=== PATIENT | male | born 1945 | race African-American/Black ===

== ENCOUNTER 2018-03-05 15:13 | Inpatient (IN) ==
[2018-03-05] MEDS ORDERED: Sod Chloride 0.9% Inj 1,000 ML IV.SIG ONE (15:34)
--- NOTE | 2018-03-05 15:43 | ED ---
HPI General Chief Complaint: Abdominal Pain Stated Complaint: Abd Pain History of Present Illness HPI narrative: This patient complains of abdominal pain. Location is left lower quadrant. Duration is 2 days. Severity is moderate. He has had some nausea and vomiting. He has decreased appetite. No constipation or diarrhea or fever. No alleviating factors. No exacerbating factors. Related Data Home Medications Medication Instructions Recorded Confirmed alfuzosin 10 mg PO DAILY 03/05/18 03/05/18 lisinopril 20 mg PO DAILY 03/05/18 03/05/18 potassium chloride 10 meq PO DAILY 03/05/18 03/05/18 Allergies Allergy/AdvReac Type Severity Reaction Status Date / Time No Known Allergies Allergy Verified 03/05/18 15:18 Review of Systems ROS: all other systems reviewed are negative [facility] Medical History Medical History Hypertension (Acute) History of prostate disorder (Acute) Surgical History Surgical History No history of previous surgery (Acute) Social History Social History Substance History: No History of Abuse Second Hand Smoke Exposure: No Smoking Status: Never smoker How Often Do You Have a Drink Containing Alcohol: Never Recent Travel in [facility] within the Last 8 Weeks: No Recent Out of Country Travel within the Last 8 Weeks: No Immunization History Tetanus Immunization: Unsure Hx Influenza Vaccine This Season: Yes Exam Narrative Exam Narrative: GENERAL: Thin elderly well-developed patient in no apparent distress. SKIN: Focused skin assessment reveals no rash and nodules. Skin is Warm and dry. HEAD: Atraumatic. Normocephalic. EYES: Pupils equal and round. No scleral icterus. No injection or drainage. ENT: No nasal bleeding or discharge. Mucous membranes pink and moist. NECK: Trachea midline. No JVD. CARDIOVASCULAR: Regular rate and rhythm. No murmur appreciated. RESPIRATORY: No accessory muscle use. Clear to auscultation. Breath sounds equal bilaterally. GASTROINTESTINAL: Abdomen soft, non-tender, nondistended. Hepatic and splenic margins not palpable. MUSCULOSKELETAL: No obvious deformities. No clubbing. No cyanosis. No edema. NEUROLOGICAL: Awake and alert. No obvious cranial nerve deficits. Motor grossly within normal limits. Normal speech. PSYCHIATRIC: Appropriate mood and affect; insight and judgment reasonable Course Initial Documented Vital Signs Temperature 98.2 F 03/05/18 15:18 Pulse Rate 113 H 03/05/18 15:18 Respiratory Rate 16 03/05/18 15:18 Blood Pressure 102/64 03/05/18 15:18 Pulse Oximetry 99 03/05/18 15:18 Last Documented Vital Signs Temperature 98.2 F 03/05/18 15:18 Pulse Rate 113 H 03/05/18 15:18 Respiratory Rate 16 03/05/18 15:18 Blood Pressure 102/64 03/05/18 15:18 Pulse Oximetry 99 03/05/18 15:18 Medical Decision Making MDM Narrative Medical decision making narrative: IV placed and labs sent. I gave him a liter of normal saline IV bolus given his tachycardia and low blood pressure. I gave him IV Zofran. Extensive workup is ordered including blood work and urinalysis and CT of abdomen and pelvis with IV contrast. His abdominal exam is benign. But given his age and abdominal pain with vomiting and abnormal vital signs extensive workup is indicated. Patient has normal CBC but BMP reveals renal failure with creatinine of 4.2. The patient and family at bedside both insist his kidney function is always normal and he has no history of renal problems. CT scan is negative for acute problem. His abdominal pain feels improved. Jeong catheter was placed and there is no urinary retention. [facility] on [facility] evening. He is never been here before. He will be in observation for new onset renal failure as recommended by the hospitalist Medical Screen Exam Complete: Yes Emergency Medical Condition: Yes Differential Diagnosis Differential Diagnosis: Diverticulitis, colitis, ileus Medical Records Medical records reviewed: Yes I reviewed the patient's medical records. Lab Data Lab results reviewed: Yes I reviewed the patient's lab results. Result diagrams: 03/05/18 15:40 03/05/18 15:40 Lab Results 03/05/18 03/05/18 03/05/18 Range/Units 15:40 15:40 15:40 CBC w Diff Auto diff final WBC 9.8 (4.0-11.0) th/mm3 RBC 3.94 L (4.50-5.90) mil/mm3 Hgb 14.6 (13.0-17.0) gm/dL Hct 43.2 (39.0-51.0) % MCV 109.8 H (80.0-100.0) fL MCH 37.2 H (27.0-34.0) pg MCHC 33.9 (32.0-36.0) % RDW 16.8 (11.6-17.2) % Plt Count 249 (150-450) th/mm3 MPV 7.8 (7.0-11.0) fL Neut % (Auto) 76.4 H (16.0-70.0) % Lymph % (Auto) 11.3 (9.0-44.0) % [place] % (Auto) 8.4 H (0.0-8.0) % Eos % (Auto) 0.1 (0.0-4.0) % Baso % (Auto) 3.8 H (0.0-2.0) % Neut # (Auto) 7.5 (1.8-7.7) th/mm3 Lymph # (Auto) 1.1 (1.0-4.8) th/mm3 [place] # (Auto) 0.8 (0.0-0.9) th/mm3 Eos # (Auto) 0.0 (0.0-0.4) th/mm3 Baso # (Auto) 0.4 H (0.0-0.2) th/mm3 WBC Differential . Differential Comment . PT 10.5 (9.8-11.6) sec INR 1.0 Ratio APTT 22.6 L (24.3-30.1) sec Sodium 142 (136-145) meq/L Potassium 4.3 (3.5-5.1) meq/L Chloride 106 (98-107) meq/L Carbon Dioxide 23.4 (21.0-32.0) meq/L Anion Gap 13 (5-15) meq/L BUN 22 H (7-18) mg/dL Creatinine 4.20 H (0.60-1.30) mg/dL Estimated GFR 14 L (>89) mL/min Random Glucose 113 H (74-106) mg/dL Calcium 9.3 (8.5-10.1) mg/dL Total Bilirubin 0.5 (0.2-1.0) mg/dL AST 15 (15-37) U/L ALT 17 (12-78) U/L Alkaline Phosphatase 86 (45-117) U/L Total Protein 7.0 (6.4-8.2) g/dL Albumin 3.3 L (3.4-5.0) g/dL Lipase 73 (73-393) U/L Ur Collection Type Urine Color (Yellw/Straw) Urine Clarity (Clear) Urine pH (5.0-8.5) Ur Specific [employer] (1.002-1.035) Urine Protein (Neg-Trace) mg/dL Urine Glucose (UA) (Negative) mg/dL Urine Ketones (Negative) mg/dL Urine Occult Blood (Negative) Urine Nitrate (Negative) Urine Bilirubin (Negative) Urine Ictotest (Negative) Urine Urobilinogen (Less than 2) mg/dL Ur Leukocyte Esterase (Negative) Urine WBC (0-5) /hpf Ur Squamous Epith Cells (0-5) /hpf Ur Renal Epithelial Cell (None) /hpf Urine Bacteria (None) /hpf Hyaline Casts (0-3) /lpf Micro UA Comment Ur Microscopic Review Urine Culture Comments 03/05/18 Range/Units 16:40 CBC w Diff WBC (4.0-11.0) th/mm3 RBC (4.50-5.90) mil/mm3 Hgb (13.0-17.0) gm/dL Hct (39.0-51.0) % MCV (80.0-100.0) fL MCH (27.0-34.0) pg MCHC (32.0-36.0) % RDW (11.6-17.2) % Plt Count (150-450) th/mm3 MPV (7.0-11.0) fL Neut % (Auto) (16.0-70.0) % Lymph % (Auto) (9.0-44.0) % [place] % (Auto) (0.0-8.0) % Eos % (Auto) (0.0-4.0) % Baso % (Auto) (0.0-2.0) % Neut # (Auto) (1.8-7.7) th/mm3 Lymph # (Auto) (1.0-4.8) th/mm3 [place] # (Auto) (0.0-0.9) th/mm3 Eos # (Auto) (0.0-0.4) th/mm3 Baso # (Auto) (0.0-0.2) th/mm3 WBC Differential Differential Comment PT (9.8-11.6) sec INR Ratio APTT (24.3-30.1) sec Sodium (136-145) meq/L Potassium (3.5-5.1) meq/L Chloride (98-107) meq/L Carbon Dioxide (21.0-32.0) meq/L Anion Gap (5-15) meq/L BUN (7-18) mg/dL Creatinine (0.60-1.30) mg/dL Estimated GFR (>89) mL/min Random Glucose (74-106) mg/dL Calcium (8.5-10.1) mg/dL Total Bilirubin (0.2-1.0) mg/dL AST (15-37) U/L ALT (12-78) U/L Alkaline Phosphatase (45-117) U/L Total Protein (6.4-8.2) g/dL Albumin (3.4-5.0) g/dL Lipase (73-393) U/L Ur Collection Type Cath Urine Color Yellow (Yellw/Straw) Urine Clarity Clear (Clear) Urine pH 5.5 (5.0-8.5) Ur Specific [employer] Greater/equal 1.030 (1.002-1.035) Urine Protein 30 H (Neg-Trace) mg/dL Urine Glucose (UA) Negative (Negative) mg/dL Urine Ketones Trace H (Negative) mg/dL Urine Occult Blood Trace (Negative) Urine Nitrate Negative (Negative) Urine Bilirubin Negative (Negative) Urine Ictotest Negative (Negative) Urine Urobilinogen 1.0 (Less than 2) mg/dL Ur Leukocyte Esterase Negative (Negative) Urine WBC 0-5 (0-5) /hpf Ur Squamous Epith Cells 0-5 (0-5) /hpf Ur Renal Epithelial Cell 1-5 H (None) /hpf Urine Bacteria Occasional H (None) /hpf Hyaline Casts Greater than 30 H (0-3) /lpf Micro UA Comment Cath-culture ind Ur Microscopic Review Microscopic reviewed Urine Culture Comments Cath-cult indicated Imaging Data Radiologist's impression: Abdomen/Pelvis CT 03/05/18 16:17 CONCLUSION: 1. I do not see an etiology of patient's left lower quadrant pain. 2. There are no inflammatory changes 3. Bladder decompressed by Jeong. Discharge Plan Discharge Disposition Patient Disposition: 30 Still Patient Discharge Details Diagnosis: SHEEBA (acute kidney injury), Abdominal pain Physicians Team ED Provider: Ramon Aggarwal Primary Care Provider: [facility]ician 's Rxs /Orders / Referrals /Forms Prescriptions: No Action potassium chloride 10 mEq Capsule, Extended Release 10 meq PO DAILY RF: 0 lisinopril 20 mg Tablet 20 mg PO DAILY RF: 0 alfuzosin 10 mg Tablet Extended Release 24 Hr 10 mg PO DAILY RF: 0 Status ED Status: In Room
[2018-03-05 15:55] LABS: Baso # (Auto) 0.4 th/mm3 (0.0-0.2); Baso % (Auto) 3.8 % (0.0-2.0); Eos % (Auto) 0.1 % (0.0-4.0); Hematocrit 43.2 % (39.0-51.0); Hemoglobin 14.6 gm/dL (13.0-17.0); Lymph # (Auto) 1.1 th/mm3 (1.0-4.8); Lymph % (Auto) 11.3 % (9.0-44.0); Mean Corpuscular HGB Conc 33.9 % (32.0-36.0); Mean Corpuscular Hemoglobin 37.2 pg (27.0-34.0); Mean Corpuscular Volume 109.8 fL (80.0-100.0); Mean Platelet Volume 7.8 fL (7.0-11.0); Mono # (Auto) 0.8 th/mm3 (0.0-0.9); Mono % (Auto) 8.4 % (0.0-8.0); Neut # (Auto) 7.5 th/mm3 (1.8-7.7); Neut % (Auto) 76.4 % (16.0-70.0); Platelet Count 249 th/mm3 (150-450); Red Blood Count 3.94 mil/mm3 (4.50-5.90); Red Cell Distribution Width 16.8 % (11.6-17.2); White Blood Count 9.8 th/mm3 (4.0-11.0)
[2018-03-05 16:01] LABS: Chloride 106 meq/L (98-107); Potassium 4.3 meq/L (3.5-5.1); Sodium 142 meq/L (136-145)
[2018-03-05 16:05] LABS: Albumin 3.3 g/dL (3.4-5.0); Anion Gap 13 meq/L (5-15); Calcium 9.3 mg/dL (8.5-10.1); Carbon Dioxide 23.4 meq/L (21.0-32.0); Glucose,Random 113 mg/dL (74-106); Lipase 73 U/L (73-393)
[2018-03-05 16:06] LABS: Activated Partial Thrombo Time 22.6 sec (24.3-30.1); Blood Urea Nitrogen 22 mg/dL (7-18); Prothrombin Time 10.5 sec (9.8-11.6)
[2018-03-05 16:08] LABS: Alanine Aminotransferase 17 U/L (12-78); Aspartate Aminotransferase 15 U/L (15-37); Glomerular Filtration Rate 14 mL/min (>89)
[2018-03-05 16:11] LABS: Alkaline Phosphatase 86 U/L (45-117)
--- NOTE | 2018-03-05 16:52 | CT ---
EXAM DATE: 03/05/2018 4:48 PM EDT AGE/SEX: 73 years / Male INDICATIONS: Left lower quadrant pain. CLINICAL DATA: This is the patient's initial encounter. Patient reports that signs and symptoms have been present for 1 day and indicates a pain score of 7/10. MEDICAL/SURGICAL HISTORY: Hypertension. None. RADIATION DOSE: 4.98 CTDI (mGy) COMPARISON: No prior exams available for comparison. TECHNIQUE: Multiple contiguous axial images were obtained through the abdomen. Images were obtained using multiple row detector helical technique. Using automated exposure control and adjustment of the mA and/or kV according to patient size, radiation dose was kept as low as reasonably achievable to o btain optimal diagnostic quality images. DICOM format image data is available electronically for rev iew and comparison. FINDINGS: Lower lungs are clear. The liver and gallbladder are unremarkable The spleen and pancreas unremarkable Adrenal glands appear normal And no obstructing renal calcifications. Moderate vascular calcifications are noted Cecum, ascending, transverse and descending colon appear unremarkable In the pelvis there are no inflammatory changes. Jeong catheter is evident. There is no adenopathy or ascites Perirectal tissues appear normal Review of bone windows reveals mild degenerative changes. CONCLUSION: 1. I do not see an etiology of patient's left lower quadrant pain. 2. There are no inflammatory changes 3. Bladder decompressed by Jeong. Electronically signed by: Kleber Garza MD 03/05/2018 4:51 PM EDT
[2018-03-05 17:05] LABS: Clarity,Urine Clear (Clear); Color,Urine Yellow (Yellw/Straw); Glucose,Urine (UA) Negative (Negative); Leukocyte Esterase,Urine Negative (Negative); Nitrite,Urine Negative (Negative); PH,Urine 5.5 (5.0-8.5); Specific Gravity,Urine Greater/Equal 1.030 (1.002-1.035)
[2018-03-05 17:07] LABS: Bilirubin,Urine Negative (Negative); Ictotest,Urine Negative (Negative)
[2018-03-05 17:13] LABS: WBC,Urine 0-5 /hpf (0-5)
[2018-03-05 17:14] LABS: Hyaline Casts,Urine Greater than 30 /lpf (0-3); Squamous Epithelial Cell,Urine 0-5 /hpf (0-5)
[2018-03-05 17:15] LABS: Bacteria,Urine Occasional /hpf
[2018-03-05] MEDS ORDERED: Acetaminophen 325 MG Tablet PO PRN (17:40)
[2018-03-05] MEDS ORDERED: Morphine Inj 4 MG/ML Vial IV.PUSH PRN (17:44)
[2018-03-05] MEDS: Sod Chloride 0.9% Inj 1,000 ML IV.CONT SCH (18:44)
[2018-03-05] MEDS: Heparin - SQ 10,000 UNITS/ML Vial SQ SCH (18:45)
[2018-03-05] MEDS: Senna/Docusate Sodium 8.6/50 MG Tablet PO SCH (23:13)
[2018-03-06] MEDS: Heparin - SQ 10,000 UNITS/ML Vial SQ SCH ×3 (02:11→18:16)
[2018-03-06] MEDS: Sod Chloride 0.9% Inj 1,000 ML IV.CONT SCH (04:16)
[2018-03-06 08:50] LABS: Baso # (Auto) 0.1 th/mm3 (0.0-0.2); Baso % (Auto) 0.6 % (0.0-2.0); Eos % (Auto) 0.3 % (0.0-4.0); Hematocrit 39.3 % (39.0-51.0); Hemoglobin 12.8 gm/dL (13.0-17.0); Lymph # (Auto) 1.4 th/mm3 (1.0-4.8); Lymph % (Auto) 15.8 % (9.0-44.0); Mean Corpuscular HGB Conc 32.5 % (32.0-36.0); Mean Corpuscular Hemoglobin 36.5 pg (27.0-34.0); Mean Corpuscular Volume 112.5 fL (80.0-100.0); Mean Platelet Volume 7.7 fL (7.0-11.0); Mono # (Auto) 0.7 th/mm3 (0.0-0.9); Mono % (Auto) 8.2 % (0.0-8.0); Neut # (Auto) 6.7 th/mm3 (1.8-7.7); Neut % (Auto) 75.1 % (16.0-70.0); Platelet Count 217 th/mm3 (150-450); Red Cell Distribution Width 15.5 % (11.6-17.2); White Blood Count 8.9 th/mm3 (4.0-11.0)
[2018-03-06 09:11] LABS: Chloride 113 meq/L (98-107); Potassium 4.4 meq/L (3.5-5.1); Sodium 145 meq/L (136-145)
[2018-03-06 09:14] LABS: Albumin 2.8 g/dL (3.4-5.0); Anion Gap 9 meq/L (5-15); Calcium 8.6 mg/dL (8.5-10.1); Carbon Dioxide 22.6 meq/L (21.0-32.0); Glucose,Random 70 mg/dL (74-106)
[2018-03-06 09:15] LABS: Blood Urea Nitrogen 24 mg/dL (7-18)
[2018-03-06 09:18] LABS: Alanine Aminotransferase 14 U/L (12-78); Aspartate Aminotransferase 13 U/L (15-37)
[2018-03-06 09:22] LABS: Platelet Estimate Normal (Normal); Platelet Morphology Normal (Normal)
[2018-03-06 09:24] LABS: Alkaline Phosphatase 71 U/L (45-117); Glomerular Filtration Rate 36 mL/min (>89); Total Protein 5.9 g/dL (6.4-8.2)
[2018-03-06] MEDS ORDERED: LORazepam 1 MG Tablet PO PRN (09:42)
[2018-03-06] MEDS ORDERED: Haloperidol Inj 5 MG/ML Ampul IV.PUSH PRN (09:42)
[2018-03-06] MEDS: Senna/Docusate Sodium 8.6/50 MG Tablet PO SCH ×2 (09:49→20:21)
--- NOTE | 2018-03-06 09:49 | P.HPIM ---
History of Present Illness Primary Care Physician: [facility] Chief Complaint: Abdominal pain History of Present Illness: The patient is a 73 year old male with a past medical history significant for hypertension who is presenting to the hospital with abdominal pain. The patient says that he has had severe pain in his lower left abdomen. He has had associated nausea and vomiting. He states that he has been unable to keep anything down. The last thing he tried to eat was some oatmeal yesterday. He states that the abdominal pain has resolved at this time. The patient denies a history of kidney problems. He currently feels well. He said he would be willing to try to eat something. He says he smokes a pack of cigarettes a day and drinks at least one bottle of wine daily. He says he has a history of prostate problems but does not think it's prostate cancer. Discussed with nursing. Review of Systems All other systems reviewed negative except as stated in HPI PMFSH - History History Provided By: Patient - Medical History Medical History: Medical History (Last Reviewed 03/06/18 @ 09:43 by Jean Sen DO) Hypertension History of prostate disorder - Surgical History Surgical History: Surgical History (Last Reviewed 03/06/18 @ 09:43 by Jean Sen DO) No history of previous surgery - Family History Family History: Family History (Last Updated 03/06/18 @ 09:43 by Jean Sen DO) Other Adopted - Social History I have reviewed the patient's Social History: Yes - Tobacco History Second Hand Smoke Exposure: Yes Tobacco Use In Past 30 Days: Yes Smoking Status: Smoker, status unknown Tobacco Type: Cigarettes - Alcohol History How Often Do You Have a Drink Containing Alcohol: 4 or more times a week - Substance Use History Substance History: No History of Abuse - Travel History Recent Travel in the [place] Within the Last 8 Weeks: No Recent Travel Out of the Country Within the Last 8 Weeks: No - Immunization History Tetanus Immunization: Unable to Assess Hx Influenza Vaccine This Season: Yes Medications and Allergies Active Medications: Active Medications Acetaminophen (Tylenol) 650 mg PO Q4H PRN PRN Reason: Temp > 100.4 Heparin Sodium (Porcine) (Heparin Inj) 5,000 units SQ Q8H [facility] Last Admin: 03/06/18 02:11 Dose: 5,000 units Dextrose/Sodium Chloride (D5w/1/2 Ns Inj) 1,000 mls @ 125 mls/hr IV.CONT .Q8H [facility] Morphine Sulfate (Morphine Inj) 2 mg IV.PUSH Q4H PRN PRN Reason: BREAKTHROUGH PAIN Ondansetron HCl (Zofran Inj) 4 mg IV.PUSH Q6H PRN PRN Reason: n/v Oxycodone HCl (Roxicodone) 5 mg PO Q4H PRN PRN Reason: pain 3-10 Senna/Docusate Sodium (Marium-Colace) 1 tab PO BID [facility] Last Admin: 03/05/18 23:13 Dose: Not Given Sodium Chloride (Ns Flush) 2 ml IV.FLUSH PRN PRN PRN Reason: FLUSH AFTER USING IV ACCESS Tamsulosin HCl (Flomax) 0.4 mg PO DAILY [facility] Allergies Allergy/AdvReac Type Severity Reaction Status Date / Time No Known Allergies Allergy Verified 03/05/18 15:18 Home Medications Medication Instructions Recorded Confirmed Type alfuzosin 10 mg PO DAILY 03/05/18 03/05/18 History lisinopril 20 mg PO DAILY 03/05/18 03/05/18 History potassium chloride 10 meq PO DAILY 03/05/18 03/05/18 History Exam Vital signs: Vital Signs 03/05/18 15:15 03/05/18 15:18 03/05/18 16:30 Temperature 98.2 F Pulse Rate 114 H 113 H 100 H Respiratory Rate 14 16 16 Blood Pressure 102/64 102/64 110/66 Pulse Oximetry 96 99 95 03/05/18 17:05 03/05/18 17:35 03/05/18 18:05 Temperature Pulse Rate 100 H 95 H 94 H Respiratory Rate 14 16 14 Blood Pressure 133/87 128/83 121/81 Pulse Oximetry 95 99 100 03/05/18 18:35 03/05/18 19:00 03/05/18 20:00 Temperature 98.3 F Pulse Rate 98 H 92 H 80 Respiratory Rate 14 14 16 Blood Pressure 144/79 H 164/72 H Pulse Oximetry 99 96 99 03/06/18 00:00 03/06/18 08:00 Temperature 98.4 F 98.8 F Pulse Rate 90 64 Respiratory Rate 18 16 Blood Pressure 158/92 H 180/83 H Pulse Oximetry 97 99 Intake & Output 09/07/18 09/08/18 09/08/18 18:59 06:59 18:59 Intake Total 1000 / 1000 1000 / 1000 Output Total 450 / 450 Balance 1000 / 1000 550 / 550 Weight 43.091 kg 41.2 kg Intake: IV 1000 / 1000 1000 / 1000 NS Inj 1,000 ML @ 100 mls/hr IV 1000 / 1000 .CONT .Q10H [facility] Rx#:[id number] NS Inj 1,000 ML @ Wide Open IV. 1000 / 1000 SIG BOLUS ONE Rx#:[id number] Output: Urine 450 / 450 Other: Date of Last Bowel Movement 03/04/18 Weight On Admission 43 kg Narrative: GENERAL: Thin, elderly patient in no apparent distress. SKIN: Focused skin assessment reveals no rash and nodules. Skin is Warm and dry. HEAD: Atraumatic. Normocephalic. EYES: Pupils equal and round. No scleral icterus. No injection or drainage. ENT: No nasal bleeding or discharge. Mucous membranes pink and moist. NECK: Trachea midline. No JVD. CARDIOVASCULAR: Regular rate and rhythm. No murmur appreciated. RESPIRATORY: No accessory muscle use. Clear to auscultation. Breath sounds equal bilaterally. GASTROINTESTINAL: Abdomen soft, non-tender, nondistended. Hepatic and splenic margins not palpable. MUSCULOSKELETAL: No obvious deformities. No clubbing. No cyanosis. No edema. NEUROLOGICAL: Awake and alert. No obvious cranial nerve deficits. Motor grossly within normal limits. Normal speech. Results - Labs CBC & Chem 7: 03/06/18 07:50 03/06/18 07:50 Labs: Short CBC 03/05/18 03/06/18 Range/Units 15:40 07:50 WBC 9.8 8.9 (4.0-11.0) th/mm3 Hgb 14.6 12.8 L (13.0-17.0) gm/dL Hct 43.2 39.3 (39.0-51.0) % Plt Count 249 217 (150-450) th/mm3 BMP 03/05/18 03/05/18 03/06/18 15:40 18:50 07:50 Sodium 142 145 Potassium 4.3 4.4 Chloride 106 113 H Carbon Dioxide 23.4 22.6 BUN 22 H 24 H Creatinine 4.20 H 3.50 H 2.20 H Calcium 9.3 8.6 Liver Function 03/05/18 03/06/18 Range/Units 15:40 07:50 Total Bilirubin 0.5 0.6 (0.2-1.0) mg/dL AST 15 13 L (15-37) U/L ALT 17 14 (12-78) U/L Alkaline Phosphatase 86 71 (45-117) U/L Albumin 3.3 L 2.8 L (3.4-5.0) g/dL Urine 03/05/18 Range/Units 16:40 Urine Color Yellow (Yellw/Straw) Urine Clarity Clear (Clear) Urine pH 5.5 (5.0-8.5) Ur Specific [place] Greater/equal 1.030 (1.002-1.035) Urine Protein 30 H (Neg-Trace) mg/dL Urine Glucose (UA) Negative (Negative) mg/dL - Imaging Impressions Abdomen/Pelvis CT 03/05/18 16:17 CONCLUSION: 1. I do not see an etiology of patient's left lower quadrant pain. 2. There are no inflammatory changes 3. Bladder decompressed by Jeong. Caprini VTE Risk Assessment Caprini VTE Risk Assessment: Moderate/High Risk (score >= 2) Caprini Risk Assessment Model: Point Value = 1 Point Value = 2 Point Value = 3 Point Value = 5 Age 41-60 Minor surgery BMI > 25 kg/m2 Swollen legs Varicose veins or History of unexplained or recurrent spontaneous Oral contraceptives or hormone replacement Sepsis (< 1 month) Serious lung disease, including pneumonia (< 1 month) Abnormal pulmonary function Acute myocardial infarction Congestive heart failure (< 1 month) History of inflammatory bowel disease Medical patient at bed rest Age 61-74 Arthroscopic surgery Major open surgery (> 45 min) Laparoscopic surgery (> 45 min) Malignancy Confined to bed (> 72 hours) Immobilizing plaster cast Central venous access Age >= 75 History of VTE Family history of VTE Factor V Leiden Prothrombin [id number] Lupus anticoagulant Anticardiolipin antibodies Elevated serum homocysteine Heparin-induced thrombocytopenia Other congenital or acquired thrombophilia Stroke (< 1 month) Elective arthroplasty Hip, pelvis, or leg fracture Acute spinal cord injury (< 1 month) Prophylaxis Regimen: Total Risk Factor Score Risk Level Prophylaxis Regimen 0-1 Low Early ambulation 2 Moderate Order ONE of the following: *Sequential Compression Device (SCD) *Heparin 5000 units SQ BID 3-4 Higher Order ONE of the following medications: *Heparin 5000 units SQ TID *Enoxaparin/Lovenox 40 mg SQ daily (WT < 150 kg, CrCl > 30 mL/min) *Enoxaparin/Lovenox 30 mg SQ daily (WT < 150 kg, CrCl > 10-29 mL/min) *Enoxaparin/Lovenox 30 mg SQ BID (WT < 150 kg, CrCl > 30 mL/min) AND/OR *Sequential Compression Device (SCD) 5 or more Highest Order ONE of the following medications: *Heparin 5000 units SQ TID (Preferred with Epidurals) *Enoxaparin/Lovenox 40 mg SQ daily (WT < 150 kg, CrCl > 30 mL/min) *Enoxaparin/Lovenox 30 mg SQ daily (WT < 150 kg, CrCl > 10-29 mL/min) *Enoxaparin/Lovenox 30 mg SQ BID (WT < 150 kg, CrCl > 30 mL/min) AND *Sequential Compression Device (SCD) Assessment and Plan - Plan Acute renal failure Prerenal secondary to nausea and vomiting. Creatinine has improved with IVFs. -continue IVFs. -antiemetics as needed. -avoid nephrotoxins. Holding lisinopril. -follow urine culture. Abdominal pain Located in the LLQ. Resolved now. CT abdomen negative. LFTs unremarkable. -pain control as needed. -serial abdominal exams. Hypoglycemia S/t decreased PO intake. -switch to D5 and monitor. HTN The pt is on lisinopril. -lisinopril on hold s/t renal failure. -start amlodipine 5 mg daily. -clonidine as needed. Alcohol abuse The pt states that he drinks at least a bottle of wine daily. -cessation instruction. -CIWA protocol. Nicotine dependence The pt smokes a pack a day. -cessation instruction. PPx: Heparin H&P: Quality - VTE Deep Vein Thrombosis/Pulmonary Embolism Present on Admission: No
[2018-03-06] MEDS: Dextrose 5%/NaCl 0.45% Inj 1,000 ML IV.CONT SCH ×2 (10:23→18:03)
[2018-03-06] MEDS: amLODIPine 5 MG Tablet PO SCH (10:23)
[2018-03-07] MEDS: Dextrose 5%/NaCl 0.45% Inj 1,000 ML IV.CONT SCH ×3 (02:54→18:14)
[2018-03-07] MEDS: Heparin - SQ 10,000 UNITS/ML Vial SQ SCH ×3 (03:27→18:14)
[2018-03-07] MEDS: amLODIPine 5 MG Tablet PO SCH (09:11)
[2018-03-07] MEDS: Senna/Docusate Sodium 8.6/50 MG Tablet PO SCH ×2 (09:12→20:29)
[2018-03-07 11:01] LABS: Calcium 8.1 mg/dL (8.5-10.1); Carbon Dioxide 22.5 meq/L (21.0-32.0); Potassium 3.6 meq/L (3.5-5.1)
--- NOTE | 2018-03-07 15:48 | P.PNIM ---
Subjective Interval history: The pt complained of diarrhea. Otherwise he was feeling well and he was looking forward to going home soon. Discussed with nursing. Physical Exam Vital signs: Vital Signs 03/06/18 16:00 03/06/18 20:00 03/07/18 00:00 Temperature 97.0 F L 98.7 F 98.8 F Pulse Rate 63 65 71 Respiratory Rate 16 16 18 Blood Pressure 95/57 L 110/60 115/70 Pulse Oximetry 97 97 96 03/07/18 04:00 03/07/18 08:00 03/07/18 12:00 Temperature 98.6 F 96.8 F L 96.2 F L Pulse Rate 61 74 76 Respiratory Rate 17 16 16 Blood Pressure 120/78 155/77 H 146/78 H Pulse Oximetry 96 96 95 Intake & Output 03/06/18 03/07/18 03/07/18 18:59 06:59 18:59 Intake Total 1540 / 1540 1000 / 1000 1240 / 1240 Output Total 550 / 550 200 / 200 Balance 990 / 990 1000 / 1000 1040 / 1040 Weight 43.7 kg Intake: IV 1300 / 1300 1000 / 1000 1000 / 1000 D5W/1/2 NS Inj 1,000 ML @ 125 1000 / 1000 1000 / 1000 1000 / 1000 mls/hr IV.CONT .Q8H [facility] Rx#: [id number] NS Inj 1,000 ML @ 100 mls/hr IV 300 / 300 .CONT .Q10H [facility] Rx#:[id number] Oral 240 / 240 240 / 240 Output: Urine 550 / 550 200 / 200 Other: # Bowel Movements 10 Narrative: GENERAL: Thin, elderly patient in no apparent distress. SKIN: Focused skin assessment reveals no rash and nodules. Skin is warm and dry. HEAD: Atraumatic. Normocephalic. EYES: Pupils equal and round. No scleral icterus. No injection or drainage. ENT: No nasal bleeding or discharge. Mucous membranes pink and moist. NECK: Trachea midline. No JVD. CARDIOVASCULAR: Regular rate and rhythm. No murmur appreciated. RESPIRATORY: No accessory muscle use. Clear to auscultation. Breath sounds equal bilaterally. GASTROINTESTINAL: Abdomen soft, non-tender, nondistended. Hepatic and splenic margins not palpable. MUSCULOSKELETAL: No obvious deformities. No clubbing. No cyanosis. No edema. NEUROLOGICAL: Awake and alert. No obvious cranial nerve deficits. Motor grossly within normal limits. Normal speech. - Urinary Catheter Management Indwelling Urethral Catheter Cath placed during this visit: yes, but has since been removed by the nurse Reason for continuing: Decision to DC catheter Insertion date: 03/05/18 Insertion time: 16:40 Removal date: 03/06/18 Removal time: 10:25 Results - Labs CBC & Chem 7: 03/06/18 07:50 03/07/18 10:15 Laboratory Results - last 24 hr 03/07/18 03/07/18 00:45 10:15 Sodium 139 Potassium 3.6 D Chloride 106 Carbon Dioxide 22.5 Anion Gap 11 BUN 13 Creatinine 1.20 Estimated GFR 72 L Random Glucose [address] C. diff Tox Epid 027 Negative C. difficile Tox (PCR) Negative Microbiology 03/05/18 16:40 Clean Catch Urine Urine Culture - Final No growth in 48 hours Assessment and Plan - Plan Acute renal failure Prerenal secondary to nausea and vomiting. Creatinine has improved with IVFs. Urine culture with no growth. -continue IVFs. -antiemetics as needed. -avoid nephrotoxins. Holding lisinopril. -PT eval. Abdominal pain Located in the LLQ. Resolved now. CT abdomen negative. LFTs unremarkable. -pain control as needed. Hypoglycemia S/t decreased PO intake. -switch to D5 and monitor. Improved. -ADAT. HTN The pt is on lisinopril. -lisinopril on hold s/t renal failure. -start amlodipine 5 mg daily. -clonidine as needed. Alcohol abuse The pt states that he drinks at least a bottle of wine daily. -cessation instruction. -CIWA protocol. Nicotine dependence The pt smokes a pack a day. -cessation instruction. Diarrhea C diff negative. -monitor. PPx: Heparin
[2018-03-08] MEDS: Dextrose 5%/NaCl 0.45% Inj 1,000 ML IV.CONT SCH ×2 (02:02→10:00)
[2018-03-08] MEDS: Heparin - SQ 10,000 UNITS/ML Vial SQ SCH ×3 (02:04→17:34)
[2018-03-08 06:17] LABS: Chloride 103 meq/L (98-107); Potassium 3.2 meq/L (3.5-5.1); Sodium 137 meq/L (136-145)
[2018-03-08 06:22] LABS: Blood Urea Nitrogen 9 mg/dL (7-18); Glucose,Random 137 mg/dL (74-106)
[2018-03-08 06:23] LABS: Anion Gap 9 meq/L (5-15); Carbon Dioxide 25.3 meq/L (21.0-32.0)
[2018-03-08 06:24] LABS: Calcium 8.1 mg/dL (8.5-10.1)
[2018-03-08 06:26] LABS: Glomerular Filtration Rate Greater Than 89 mL/min (>89)
[2018-03-08] MEDS: amLODIPine 5 MG Tablet PO SCH (09:56)
[2018-03-08] MEDS: Senna/Docusate Sodium 8.6/50 MG Tablet PO SCH ×2 (09:57→20:35)
[2018-03-08] MEDS: Mag Sulf 1 gm/100 ml Premix 100 ML IV.SIG SCH ×4 (10:00→13:49)
--- NOTE | 2018-03-08 12:17 | P.PNIM ---
Subjective Interval history: The patient was sitting in a chair. He stated that he worked with physical therapy. He was open with going to rehab. He did complain of some abdominal pain. It was not related to eating. He said he has not had any bowel movements lately. Physical Exam Vital signs: Vital Signs 03/07/18 16:00 03/07/18 20:00 03/08/18 00:00 Temperature 96.6 F L 98.0 F 97.8 F Pulse Rate 82 86 82 Respiratory Rate 16 20 20 Blood Pressure 147/69 H 171/82 H 170/92 H Pulse Oximetry 96 97 97 03/08/18 04:00 03/08/18 08:00 Temperature 97.2 F L 97.8 F Pulse Rate 77 82 Respiratory Rate 20 18 Blood Pressure 148/88 H 163/94 H Pulse Oximetry 96 96 Intake & Output 03/07/18 03/08/18 03/08/18 18:59 06:59 18:59 Intake Total 2240 / 2240 1060 / 1060 1100 / 1100 Output Total 200 / 200 200 / 200 Balance 2040 / 2040 860 / 860 1100 / 1100 Intake: IV 2000 / 2000 1000 / 1000 1100 / 1100 D5W/1/2 NS Inj 1,000 ML @ 125 2000 / 2000 1000 / 1000 1000 / 1000 mls/hr IV.CONT .Q8H [facility]IP Rx#: [id number] Magnesium Sulfate 1 gm/D5W 100 100 / 100 ml Premix 100 ML @ 100 mls/hr IV.SIG Q1H PHILLIP Rx#:[id number] Oral 240 / 240 60 / 60 Output: Urine 200 / 200 200 / 200 Other: # Incontinent Voids 3 Narrative: GENERAL: Thin, elderly patient in no apparent distress. SKIN: Focused skin assessment reveals no rash and nodules. Skin is warm and dry. HEAD: Atraumatic. Normocephalic. EYES: Pupils equal and round. No scleral icterus. No injection or drainage. ENT: No nasal bleeding or discharge. Mucous membranes pink and moist. NECK: Trachea midline. No JVD. CARDIOVASCULAR: Regular rate and rhythm. No murmur appreciated. RESPIRATORY: No accessory muscle use. Clear to auscultation. Breath sounds equal bilaterally. GASTROINTESTINAL: Abdomen soft, non-tender, nondistended. Hepatic and splenic margins not palpable. MUSCULOSKELETAL: No obvious deformities. No clubbing. No cyanosis. No edema. NEUROLOGICAL: Awake and alert. No obvious cranial nerve deficits. Motor grossly within normal limits. Normal speech. - Urinary Catheter Management Indwelling Urethral Catheter Cath placed during this visit: yes, but has since been removed by the nurse Reason for continuing: Decision to DC catheter Insertion date: 03/05/18 Insertion time: 16:40 Removal date: 03/06/18 Removal time: 10:25 Results - Labs CBC & Chem 7: 03/06/18 07:50 03/08/18 05:46 Laboratory Results - last 24 hr 03/08/18 05:46 Sodium 137 Potassium 3.2 L Chloride 103 Carbon Dioxide 25.3 Anion Gap 9 BUN 9 Creatinine 0.91 Estimated GFR Greater than 89 Random Glucose 137 H Calcium 8.1 L Magnesium 1.0 L Microbiology 03/05/18 16:40 Clean Catch Urine Urine Culture - Final No growth in 48 hours Assessment and Plan - Plan Acute renal failure Prerenal secondary to nausea and vomiting. Urine culture with no growth. Resolved with IVFs. -d/c IVFs. -antiemetics as needed. -avoid nephrotoxins. Holding lisinopril. Weakness PT recommending rehab. -case management consult. Abdominal pain Comes and goes. CT abdomen negative. LFTs unremarkable. -pain control as needed. Hypoglycemia/ Hypomagnesemia/ Hypokalemia S/t decreased PO intake. Mg level was 1. -ADAT. -monitor off of fluids. -replete with IV mg sulfate and PO KCl. -follow BMP. HTN The pt is on lisinopril. -lisinopril on hold s/t renal failure. -start amlodipine 5 mg daily. -clonidine as needed. Alcohol abuse The pt states that he drinks at least a bottle of wine daily. -cessation instruction. -CIWA protocol. Nicotine dependence The pt smokes a pack a day. -cessation instruction. Diarrhea C diff negative. -monitor. PPx: Heparin
[2018-03-09] MEDS: Heparin - SQ 10,000 UNITS/ML Vial SQ SCH ×3 (02:13→17:14)
[2018-03-09 06:57] LABS: Anion Gap 7 meq/L (5-15); Blood Urea Nitrogen 18 mg/dL (7-18); Calcium 8.1 mg/dL (8.5-10.1); Carbon Dioxide 23.9 meq/L (21.0-32.0); Chloride 104 meq/L (98-107); Glomerular Filtration Rate Greater Than 89 mL/min (>89); Glucose,Random 92 mg/dL (74-106); Magnesium 1.8 mg/dL (1.5-2.5); Potassium 4.8 meq/L (3.5-5.1); Sodium 135 meq/L (136-145)
[2018-03-09] MEDS: amLODIPine 5 MG Tablet PO SCH (09:09)
[2018-03-09] MEDS: Senna/Docusate Sodium 8.6/50 MG Tablet PO SCH ×2 (09:09→20:38)
[2018-03-09] MEDS ORDERED: Lisinopril 20 MG Tablet PO SCH (11:00)
[2018-03-09] MEDS ORDERED: amLODIPine 5 MG Tablet PO ONE (11:01)
--- NOTE | 2018-03-09 11:02 | P.PNIM ---
Subjective Interval history: The patient was sitting up in a chair. He said he felt too weak to go home. He denied any pain. He says he was spitting up at times. He said he understands he needs to cut down on his alcohol use. He does not feel shaky. Physical Exam Vital signs: Vital Signs 03/08/18 12:00 03/08/18 15:34 03/08/18 20:00 Temperature 98.1 F 98.1 F 99.7 F H Pulse Rate 84 82 87 Respiratory Rate 18 18 20 Blood Pressure 141/75 H 143/83 H 151/75 H Pulse Oximetry 98 98 94 L 03/09/18 00:00 03/09/18 04:38 03/09/18 07:47 Temperature 99.3 F 98.3 F 99 F Pulse Rate 85 88 86 Respiratory Rate 20 20 20 Blood Pressure 135/76 141/86 H 163/80 H Pulse Oximetry 96 95 97 Intake & Output 03/08/18 03/09/18 03/09/18 18:59 06:59 18:59 Intake Total 3300 / 3300 120 / 120 Output Total 300 / 300 400 / 400 Balance 3000 / 3000 -280 / -280 Weight 45.5 kg Intake: IV 2400 / 2400 D5W/1/2 NS Inj 1,000 ML @ 125 2000 / 2000 mls/hr IV.CONT .Q8H [facility] Rx#: [id number] Magnesium Sulfate 1 gm/D5W 100 400 / 400 ml Premix 100 ML @ 100 mls/hr IV.SIG Q1H [facility]IP Rx#:[id number] Oral 900 / 900 120 / 120 Output: Urine 300 / 300 400 / 400 Other: # Bowel Movements 0 Narrative: GENERAL: Thin, elderly patient in no apparent distress. SKIN: Focused skin assessment reveals no rash and nodules. Skin is warm and dry. HEAD: Atraumatic. Normocephalic. EYES: Pupils equal and round. No scleral icterus. No injection or drainage. ENT: No nasal bleeding or discharge. Mucous membranes pink and moist. NECK: Trachea midline. No JVD. CARDIOVASCULAR: Regular rate and rhythm. No murmur appreciated. RESPIRATORY: No accessory muscle use. Clear to auscultation. Breath sounds equal bilaterally. GASTROINTESTINAL: Abdomen soft, non-tender, nondistended. Hepatic and splenic margins not palpable. MUSCULOSKELETAL: No obvious deformities. No clubbing. No cyanosis. No edema. NEUROLOGICAL: Awake and alert. No obvious cranial nerve deficits. Motor grossly within normal limits. Normal speech. - Urinary Catheter Management Indwelling Urethral Catheter Cath placed during this visit: yes, but has since been removed by the nurse Reason for continuing: Decision to DC catheter Insertion date: 03/05/18 Insertion time: 16:40 Removal date: 03/06/18 Removal time: 10:25 Condom Cath placed during this visit: no Results - Labs CBC & Chem 7: 03/06/18 07:50 03/09/18 05:47 Laboratory Results - last 24 hr 03/08/18 03/09/18 05:46 05:47 Sodium 135 L Potassium 4.8 D Chloride 104 Carbon Dioxide 23.9 Anion Gap 7 BUN 18 Creatinine 0.84 Estimated GFR Greater than 89 Random Glucose 92 Calcium 8.1 L Phosphorus 1.8 L Magnesium 1.8 D Assessment and Plan - Plan Acute renal failure Prerenal secondary to nausea and vomiting. Urine culture with no growth. Resolved with IVFs. -d/c IVFs. -antiemetics as needed. -avoid nephrotoxins. Weakness PT recommending rehab. -case management consult. Anticipate d/c to SNF 03/10. Abdominal pain Comes and goes. CT abdomen negative. LFTs unremarkable. -pain control as needed. Hypoglycemia/ Hypomagnesemia/ Hypokalemia/ Hypophosphatemia S/t decreased PO intake. -ADAT. -monitor off of fluids. -replete and follow BMP. HTN The pt is on lisinopril. -increase amlodipine to 10 mg daily. -consider resuming lisinopril. -clonidine as needed. Alcohol abuse The pt states that he drinks at least a bottle of wine daily. -cessation instruction. -CIWA protocol. Nicotine dependence The pt smokes a pack a day. -cessation instruction. Diarrhea C diff negative. -monitor. PPx: Heparin
[2018-03-09] MEDS ORDERED: Sodium Phosphate Inj 30 MMOL in Sodium Chlor 0.9% Inj 250 ML IV.SIG ONE (12:00)
[2018-03-10] MEDS: Heparin - SQ 10,000 UNITS/ML Vial SQ SCH (01:59)
[2018-03-10 06:54] LABS: Chloride 106 meq/L (98-107); Potassium 4.4 meq/L (3.5-5.1); Sodium 140 meq/L (136-145)
[2018-03-10 07:00] LABS: Anion Gap 10 meq/L (5-15); Calcium 7.9 mg/dL (8.5-10.1); Glucose,Random 93 mg/dL (74-106); Magnesium 1.6 mg/dL (1.5-2.5)
[2018-03-10 07:11] LABS: Blood Urea Nitrogen 37 mg/dL (7-18); Glomerular Filtration Rate Greater Than 89 mL/min (>89); Phosphorus 3.5 mg/dL (2.5-4.9)
[2018-03-10] MEDS ORDERED: Sod Chloride 0.9% Inj 1,000 ML IV.SIG ONE ×4 (08:15→11:25)
[2018-03-10 08:28] LABS: Baso % (Auto) 0.3 % (0.0-2.0); Eos % (Auto) 0.4 % (0.0-4.0); Hematocrit 26.3 % (39.0-51.0); Hemoglobin 9.1 gm/dL (13.0-17.0); Lymph # (Auto) 1.7 th/mm3 (1.0-4.8); Mean Corpuscular HGB Conc 34.6 % (32.0-36.0); Mean Corpuscular Volume 109.9 fL (80.0-100.0); Mean Platelet Volume 8.6 fL (7.0-11.0); Mono # (Auto) 1.1 th/mm3 (0.0-0.9); Mono % (Auto) 11.3 % (0.0-8.0); Neut # (Auto) 6.5 th/mm3 (1.8-7.7); Platelet Count 196 th/mm3 (150-450); Red Blood Count 2.39 mil/mm3 (4.50-5.90); Red Cell Distribution Width 15.8 % (11.6-17.2); White Blood Count 9.3 th/mm3 (4.0-11.0)
[2018-03-10 08:56] LABS: Baso # (Auto) 0.1 th/mm3 (0.0-0.2); Baso % (Auto) 0.6 % (0.0-2.0); Eos % (Auto) 0.3 % (0.0-4.0); Hematocrit 23.7 % (39.0-51.0); Hemoglobin 8.2 gm/dL (13.0-17.0); Lymph # (Auto) 1.7 th/mm3 (1.0-4.8); Lymph % (Auto) 17.7 % (9.0-44.0); Mean Corpuscular HGB Conc 34.5 % (32.0-36.0); Mean Corpuscular Hemoglobin 37.8 pg (27.0-34.0); Mean Corpuscular Volume 109.6 fL (80.0-100.0); Mean Platelet Volume 7.9 fL (7.0-11.0); Mono # (Auto) 1.1 th/mm3 (0.0-0.9); Mono % (Auto) 11.2 % (0.0-8.0); Neut # (Auto) 6.9 th/mm3 (1.8-7.7); Neut % (Auto) 70.2 % (16.0-70.0); Platelet Count 186 th/mm3 (150-450); Red Blood Count 2.17 mil/mm3 (4.50-5.90); Red Cell Distribution Width 15.9 % (11.6-17.2); White Blood Count 9.8 th/mm3 (4.0-11.0)
[2018-03-10] MEDS ORDERED: Sodium Chlor 0.9% Inj 250 ML IV.SIG SCH ×2 (09:00→12:00)
[2018-03-10 09:04] LABS: Chloride 107 meq/L (98-107); Potassium 4.5 meq/L (3.5-5.1); Sodium 139 meq/L (136-145)
[2018-03-10 09:07] LABS: Calcium 7.9 mg/dL (8.5-10.1)
[2018-03-10 09:08] LABS: Anion Gap 10 meq/L (5-15); Blood Urea Nitrogen 40 mg/dL (7-18); Carbon Dioxide 22.1 meq/L (21.0-32.0); Glucose,Random 108 mg/dL (74-106)
[2018-03-10 09:09] LABS: Activated Partial Thrombo Time 56.4 sec (24.3-30.1); INR 1.2 Ratio; Prothrombin Time 11.7 sec (9.8-11.6)
[2018-03-10 09:11] LABS: Alanine Aminotransferase 13 U/L (12-78); Aspartate Aminotransferase 14 U/L (15-37); Glomerular Filtration Rate 80 mL/min (>89)
[2018-03-10 09:13] LABS: Total Protein 4.5 g/dL (6.4-8.2)
[2018-03-10 09:13] LABS: ABG Base Excess -3.5 mmol/L (-2-2); ABG PCO2 26 mmHg (38-42); ABG PO2 421 mmHg (61-120)
[2018-03-10 09:14] LABS: Alkaline Phosphatase 48 U/L (45-117)
[2018-03-10] MEDS ORDERED: Pantoprazole Inj 40 MG Vial IV.PUSH SCH (10:00)
[2018-03-10] MEDS: Senna/Docusate Sodium 8.6/50 MG Tablet PO SCH ×2 (10:06→21:12)
--- NOTE | 2018-03-10 10:09 | P.CONCC ---
History of Present Illness Consult date: 03/10/18 Requesting Physician: Jean Sen Reason for Consult: Critical care management Primary Care Provider: [facility]ician [facility] Chief Complaint: Acute lower GI bleed History of Present Illness: 73-year-old male who was seen in consultation at the request of the hospitalist to assume medical management the patient while in the intensive care. The patient originally presented the hospital with acute severe lower abdomen pain with associated nausea vomiting patient was unable to keep anything down at that time. Patient is a heavy drinker that drinks at least one bottle of wine daily. The patient was admitted the hospital on the hospitalist care for abdominal pain, acute renal failure. Patient underwent IV hydration with significant improvement of his renal functions. Patient's abdominal pain did resolve during his stay in the hospital. Patient was placed on CISD protocol for his alcohol abuse. Patient tolerated treatment well and was anxiously awaiting discharge, however this morning patient had acute onset of lower GI bleed with high volume liquid stool that was maroon and bright red in coloration with large clots approximately 1.5 L on the first episode. Patient has had at least 3 other episodes of large-volume room/bright red blood stools. During each episode patient has significant drop in blood pressure as well as oxygenation. Originally patient blood pressure was 86/62. During subsequent episodes patient would drop down to a map of 40-50. Patient oxygenation would drop down to 70s. Patient was placed on nonrebreather with improvement of his oxygenation. Blood gases were performed which showed adequate oxygenation, however did indicate a hemoglobin of 6.4. On original presentation to the emergency department patient did have a hemoglobin of 14.6. He continued to trend downward to 9.1. Patient's last episode of lower GI hemorrhage. Patient very lethargic, difficulty in speaking. Patient was emergently intubated for airway support. Case was discussed with radio program director Dr. Hardy, who did come to [place] and evaluated the patient and placed central line and arterial line. Case was also discussed with flagsetter Dr. Cuello who indicated patient needs to have stat transferred to the [facility] for emergent endoscopy with interventional radiologist back up. Patient was sent transferred to the [facility] Review of Systems All other systems reviewed negative except as stated in HPI Gastrointestinal: Reports bright, red blood in stools PMFSH - History History Provided By: Patient - Medical History Medical History: Medical History (Last Reviewed 03/10/18 @ 10:07 by RAEGAN Soares) Hypertension History of prostate disorder - Surgical History Surgical History: Surgical History (Last Reviewed 03/10/18 @ 10:07 by RAEGAN Soares) No history of previous surgery - Family History Family History: Family History (Last Reviewed 03/10/18 @ 10:07 by RAEGAN Soares) Other Adopted - Tobacco History Second Hand Smoke Exposure: Yes Tobacco Use In Past 30 Days: Yes Smoking Status: Smoker, status unknown Tobacco Type: Cigarettes - Alcohol History How Often Do You Have a Drink Containing Alcohol: 4 or more times a week - Substance Use History Substance History: No History of Abuse - Travel History Recent Travel in the [place] Within the Last 8 Weeks: No Recent Travel Out of the Country Within the Last 8 Weeks: No - Immunization History Tetanus Immunization: Unable to Assess Hx Influenza Vaccine This Season: Yes Medications and Allergies Allergies Allergy/AdvReac Type Severity Reaction Status Date / Time No Known Allergies Allergy Verified 03/05/18 15:18 Home Medications Medication Instructions Recorded Confirmed Type alfuzosin 10 mg PO DAILY 03/05/18 03/05/18 History lisinopril 20 mg PO DAILY 03/05/18 03/05/18 History potassium chloride 10 meq PO DAILY 03/05/18 03/05/18 History Active Medications: Active Medications Acetaminophen (Tylenol) 650 mg PO Q4H PRN PRN Reason: Temp > 100.4 Amlodipine Besylate (Norvasc) 10 mg PO DAILY [facility]ILLIP Clonidine HCl (Catapres) 0.1 mg PO Q6H PRN PRN Reason: SBP> OR = 180, DBP> OR = 100 Flumazenil (Romazecon Inj) 0.2 mg IV.PUSH Q1M PRN PRN Reason: OVERSEDATION Haloperidol Lactate (Haldol Inj) 1 mg IV.PUSH Q15M PRN PRN Reason: for severe agitation Sodium Chloride (Ns Inj) 250 mls @ 15 mls/hr IV.SIG ONCE PHILLIP Stop: 03/11/18 01:39 Pantoprazole Sodium 80 mg/ (Sodium Chloride) 100 mls @ 10 mls/hr IV.CONT Q10H PHILLIP Lorazepam (Ativan) 1 mg PO Q4H PRN PRN Reason: for CIWA 8-10 Lorazepam (Ativan) 2 mg PO Q2H PRN PRN Reason: for CIWA 11-14 Lorazepam (Ativan Inj) 2 mg IV.PUSH Q1H PRN PRN Reason: for CIWA 15-20 Lorazepam (Ativan Inj) 2 mg IV.PUSH Q15M PRN PRN Reason: for CIWA > 20 Ondansetron HCl (Zofran Inj) 4 mg IV.PUSH Q6H PRN PRN Reason: n/v Last Admin: 03/08/18 02:24 Dose: 4 mg Oxycodone HCl (Roxicodone) 5 mg PO Q4H PRN PRN Reason: pain 3-10 Last Admin: 03/07/18 18:15 Dose: 5 mg Senna/Docusate Sodium (Marium-Colace) 1 tab PO BID [facility] Last Admin: 03/09/18 20:38 Dose: Not Given Sodium Chloride (Ns Flush) 2 ml IV.FLUSH PRN PRN PRN Reason: FLUSH AFTER USING IV ACCESS Tamsulosin HCl (Flomax) 0.4 mg PO DAILY [facility] Last Admin: 03/09/18 09:09 Dose: 0.4 mg Physical Exam Vital signs: Vital Signs 03/09/18 11:19 03/09/18 15:32 03/09/18 20:00 Temperature 99.4 F 99.2 F 97.6 F Pulse Rate 100 H 95 H 98 H Respiratory Rate 20 20 18 Blood Pressure 140/65 138/68 101/72 Pulse Oximetry 98 98 96 03/09/18 20:11 03/10/18 00:00 03/10/18 04:00 Temperature 99.7 F H 98.3 F Pulse Rate 88 98 H 95 H Respiratory Rate 18 18 Blood Pressure 101/58 L 100/59 L Pulse Oximetry 97 97 03/10/18 09:00 03/10/18 09:08 Temperature 96.9 F L Pulse Rate Respiratory Rate Blood Pressure Pulse Oximetry 94 L Intake & Output 03/09/18 03/10/18 03/10/18 18:59 06:59 18:59 Intake Total 1100 / 1100 Output Total 400 / 400 Balance 1100 / 1100 -400 / -400 Weight 45.5 kg Intake: IV 260 / 260 Sodium Phosphate Inj 30 MMOL In 260 / 260 NS Inj 250 ML @ 40 mls/hr IV. SIG ONCE ONE Rx#:[id number] Oral 840 / 840 Output: Urine 400 / 400 Other: # Voids 500 Date of Last Bowel Movement 03/09/18 # Bowel Movements 3 1 Narrative: GENERAL: Well-developed, cachectic, in no acute distress. alert and orientated HEENT: Head is normocephalic without any lesions or masses noted. Facial features are symmetric. Eyes: Pupils equal round reactive to light. Extraocular muscles are intact. Conjunctivae were clear. Oropharyngeal: Pharynx without any erythema edema. Tongue is midline without deviation. Buccal mucosa is moist without any masses or lesions patient subsequently intubated for airway support. ET tube in place NECK: Supple without any masses. Trachea midline no deviation. No JVD, no bruits are appreciated CARDIAC: Regular rhythm, regular rate. S1/S2 are heard. 2/6 ejection murmur, no gallops or rubs. LUNGS: Clear to auscultation bilaterally. No wheeze, rhonchi or rales. No use of accessory muscles on inspiration or expiration. ABDOMEN: Soft, nontender. Nondistended. Bowel sounds heard in all 4 quadrants. No organomegaly or masses. Negative rebound, negative guarding. Profuse melanic /right red blood per rectum at least 2 L so far EXTREMITIES: No edema, pulses are equal bilaterally. No cyanosis or clubbing NEUROLOGY: Mood and affect appear appropriate. Cranial nerves II through XII grossly intact. Muscle strength 5/5 in upper and lower extremities bilaterally. Deep tendon reflexes are 2+ in upper and lower extremities bilaterally. - Urinary Catheter Management Indwelling Urethral Catheter Cath placed during this visit: yes, but has since been removed by the nurse Reason for continuing: Decision to DC catheter Insertion date: 03/05/18 Insertion time: 16:40 Removal date: 03/06/18 Removal time: 10:25 Condom Cath placed during this visit: no Reason for continuing: Not indwelling catheter Assessment and Plan - Problem List (1) Acute lower GI hemorrhage Code(s): K92.2 - Gastrointestinal hemorrhage, unspecified Status: Acute (2) Acute respiratory failure Code(s): J96.00 - Acute respiratory failure, unspecified whether with hypoxia or hypercapnia Status: Acute (3) Hypovolemic shock Code(s): R57.1 - Hypovolemic shock Status: Acute - Assessment and Plan Plan: NEUROLOGY Ativan/fentanyl for sedation to maintain redness -2 Daily sedation vacation CARDIOLOGY Hypovolemic/Hemorrhagic shock Status post 4 L of IV fluid bolus Levophed IV to maintain map greater than 65 PULMONOLOGY Acute respiratory failure PRVC 18/600/1.0/5/100%, wean FiO2 to maintain O2 sats greater than 92% Daily ventilator weaning GASTROENTEROLOGY Acute lower GI hemorrhage keep patient n.p.o. due to GI bleed Insert OG tube Anticipate starting tube feeding after patient stabilized and cleared by GI [employer] consultation, stat: Discussed with Dr. Cuello, he indication patient needs to have a stat transferred to the [facility] for stat colonoscopy/endoscopy with interventional radiology backup. Start Protonix drip Start octreotide drip RENAL Acute renal failure, resolved Continue IV fluids Continue monitor renal function Replete electrolytes as needed INFECTIOUS DISEASE Continue to monitor for infection Start Rocephin 1 g IV daily Obtain blood cultures ENDOCRINOLOGY Continue monitor glucose and start Accu-Cheks with sliding scale insulin if needed HEMATOLOGY Acute lower GI hemorrhage Acute blood loss anemia Stat transfused 4 units of packed red blood cells Monitor hemoglobin and hematocrit every 4 hours Transfer for stat endoscopy/colonoscopy with IR backup PROPHYLAXIS Protonix IV for GI protection Sequential compression devices for DVT prevention, unable to use chemical prophylaxis secondary to acute lower GI hemorrhage LINES Peripheral IVs Right subclavian central venous line: 03/10/18 Right radial arterial line: 03/10/18 CODE STATUS Full code CRITICAL CARE TIME: 75 minutes excluding procedures ADDENDUM BY DR. HARDY Case discussed with Benny CARLIN. I agree with and physical exam and history, the assessment and plan. When I arrived at [facility] to evaluate the patient he was already intubated by ER physician Dr. Stanton. Patient was hemodynamically unstable and sustained syncope prior to intubation. Was resuscitated with 4 L normal saline IV fluids and followed by [facility] currently receiving 2 units additional 2 units pending. I placed a right subclavian central line and also placed a right radial arterial line. Patient had been started on Protonix infusion and octreotide infusion and will also start Rocephin for SBP prophylaxis. Patient has significant alcohol use is unclear whether he has a variceal bleeding at this time. Once stabilized he is being emergently transferred to [facility] for endoscopy and possible IR intervention if needed
[2018-03-10] MEDS ORDERED: Midazolam Inj 5 MG/ML 1 ML Vial ONE (10:45)
[2018-03-10] MEDS: amLODIPine 10 MG Tablet PO SCH (11:03)
--- NOTE | 2018-03-10 11:09 | ED ---
HPI General Chief complaint: Abdominal Pain Stated complaint: Abd Pain History of Present Illness HPI narrative: I was called from the ER to assist with intubation of patient. Patient was unstable, hypotensive and tachycardic with acute GI bleed. Ramon Sams requested that patient be intubated as he was too unstable to be transferred to the main hospital without airway protection. Massive blood transfusion protocol currently being initiated. Please see previous providers chart for hpi and full workup of patient Related Data Home Medications Medication Instructions Recorded Confirmed alfuzosin 10 mg PO DAILY 03/05/18 03/05/18 lisinopril 20 mg PO DAILY 03/05/18 03/05/18 potassium chloride 10 meq PO DAILY 03/05/18 03/05/18 Allergies Allergy/AdvReac Type Severity Reaction Status Date / Time No Known Allergies Allergy Verified 03/05/18 15:18 Review of Systems ROS Unobtainable ROS Unobtainable: unobtainable due to mental status PMFSH Social History Social History Substance History: No History of Abuse Second Hand Smoke Exposure: Yes Smoking Status: Smoker, status unknown Tobacco Type: Cigarettes How Often Do You Have a Drink Containing Alcohol: 4 or more times a week Recent Travel in [facility] within the Last 8 Weeks: No Recent Out of Country Travel within the Last 8 Weeks: No Immunization History Tetanus Immunization: Unable to Assess Hx Influenza Vaccine This Season: Yes Exam Narrative Exam Narrative: GENERAL: Severe distress SKIN: Focused skin assessment warm/dry. HEAD: Atraumatic. Normocephalic. CARDIOVASCULAR: Tachycardic. No murmur appreciated. RESPIRATORY: Positive accessory muscle use. Patient in respiratory distress Procedures Intubation Time Out Performed: Yes Sedative: etomidate Paralytic: succinylcholine Laryngoscope: David ET Tube Size: 8 ET Tube Uncuffed: Yes Tube Secured Depth (cm): 26 Tube Secured Location: lips Tube Placement Confirmation: visualized tube passing through cords, equal breath sounds bilaterally, no breath sounds over epigastrium and confirmation by capnometry Patient Tolerated Procedure: well Intubation Complications: none Course Initial Documented Vital Signs Pulse Rate 114 H 03/05/18 15:15 Respiratory Rate 14 03/05/18 15:15 Blood Pressure 102/64 03/05/18 15:15 Pulse Oximetry 96 03/05/18 15:15 Last Documented Vital Signs Temperature 96.9 F L 03/10/18 09:08 Pulse Rate 85 03/10/18 12:15 Respiratory Rate 18 03/10/18 13:15 Blood Pressure 90/71 L 03/10/18 12:15 Pulse Oximetry 100 03/10/18 13:15 Medical Decision Making MDM Narrative Medical decision making narrative: Patient was intubated for airway protection as he is in shock and was unstable - Dr. Francisco Zapata is on the way to evaluate patient prior to transfer to [facility] Medical Screen Exam Complete: Yes Emergency Medical Condition: Yes Lab Data Result diagrams: 03/10/18 08:45 03/10/18 08:45 Lab Results 03/05/18 03/05/18 03/05/18 Range/Units 15:40 15:40 15:40 CBC w Diff Auto diff final WBC 9.8 (4.0-11.0) th/mm3 RBC 3.94 L (4.50-5.90) mil/mm3 Hgb 14.6 (13.0-17.0) gm/dL Hct 43.2 (39.0-51.0) % MCV 109.8 H (80.0-100.0) fL MCH 37.2 H (27.0-34.0) pg MCHC 33.9 (32.0-36.0) % RDW 16.8 (11.6-17.2) % Plt Count 249 (150-450) th/mm3 MPV 7.8 (7.0-11.0) fL Neut % (Auto) 76.4 H (16.0-70.0) % Lymph % (Auto) 11.3 (9.0-44.0) % [place] % (Auto) 8.4 H (0.0-8.0) % Eos % (Auto) 0.1 (0.0-4.0) % Baso % (Auto) 3.8 H (0.0-2.0) % Neut # (Auto) 7.5 (1.8-7.7) th/mm3 Lymph # (Auto) 1.1 (1.0-4.8) th/mm3 [place] # (Auto) 0.8 (0.0-0.9) th/mm3 Eos # (Auto) 0.0 (0.0-0.4) th/mm3 Baso # (Auto) 0.4 H (0.0-0.2) th/mm3 WBC Differential . Diff Scan Differential Comment . Platelet Estimate (Normal) Platelet Morphology (Normal) PT 10.5 (9.8-11.6) sec INR 1.0 Ratio APTT 22.6 L (24.3-30.1) sec Puncture Site Patient Temperature O2 Saturation (90-100) % ABG pH (7.380-7.420) ABG pCO2 (38-42) mmHg ABG pO2 (61-120) mmHg ABG HCO3 (22-26) mmol/L ABG O2 Content (12.0-20.0) Vol % ABG Base Excess (-2-2) mmol/L ABG Methemoglobin (0-2) % Dionte Test VBG pH (7.360-7.400) VBG pCO2 (44-48) mmHG VBG pO2 (35-40) mmHG VBG HCO3 (22-26) mmol/L VBG O2 Saturation (70-76) % VBG O2 Content (9.0-17.0) Vol % VBG Base Excess (-2-2) mmol/L VBG Carboxyhemoglobin (0-4) % VBG Methemoglobin (0-2) % Hemoglobin (12.0-16.0) G/DL Carboxyhemoglobin (0-4) % O2 Delivery Device Liter Flow L/M Vent Setting Inspired O2 % Critical Value Sodium 142 (136-145) meq/L Potassium 4.3 (3.5-5.1) meq/L Chloride 106 (98-107) meq/L Carbon Dioxide 23.4 (21.0-32.0) meq/L Anion Gap 13 (5-15) meq/L BUN 22 H (7-18) mg/dL Creatinine 4.20 H (0.60-1.30) mg/dL Estimated GFR 14 L (>89) mL/min POC Glucose (68-110) mg/dl Random Glucose 113 H (74-106) mg/dL Calcium 9.3 (8.5-10.1) mg/dL Phosphorus (2.5-4.9) mg/dL Magnesium (1.5-2.5) mg/dL Iron (65-175) mcg/dL TIBC (250-450) mcg/dL % Saturation (20-50) % Ferritin (26-388) ng/mL Total Bilirubin 0.5 (0.2-1.0) mg/dL AST 15 (15-37) U/L ALT 17 (12-78) U/L Alkaline Phosphatase 86 (45-117) U/L Total Protein 7.0 (6.4-8.2) g/dL Albumin 3.3 L (3.4-5.0) g/dL Lipase 73 (73-393) U/L Vitamin B12 (193-986) pg/mL Folate (3.1-17.5) ng/mL Ur Collection Type Urine Color (Yellw/Straw) Urine Clarity (Clear) Urine pH (5.0-8.5) Ur Specific [place] (1.002-1.035) Urine Protein (Neg-Trace) mg/dL Urine Glucose (UA) (Negative) mg/dL Urine Ketones (Negative) mg/dL Urine Occult Blood (Negative) Urine Nitrate (Negative) Urine Bilirubin (Negative) Urine Ictotest (Negative) Urine Urobilinogen (Less than 2) mg/dL Ur Leukocyte Esterase (Negative) Urine WBC (0-5) /hpf Ur Squamous Epith Cells (0-5) /hpf Ur Renal Epithelial Cell (None) /hpf Urine Bacteria (None) /hpf Hyaline Casts (0-3) /lpf Micro UA Comment Ur Microscopic Review Urine Culture Comments Ur Random Sodium meq/L St C. diff Tox Epid 027 (Negative) C. difficile Tox (PCR) (Negative) Blood Type Antibody Screen MTS Gel Crossmatch 03/05/18 03/05/18 03/05/18 Range/Units 16:40 16:40 18:50 CBC w Diff WBC (4.0-11.0) th/mm3 RBC (4.50-5.90) mil/mm3 Hgb (13.0-17.0) gm/dL Hct (39.0-51.0) % MCV (80.0-100.0) fL MCH (27.0-34.0) pg MCHC (32.0-36.0) % RDW (11.6-17.2) % Plt Count (150-450) th/mm3 MPV (7.0-11.0) fL Neut % (Auto) (16.0-70.0) % Lymph % (Auto) (9.0-44.0) % [place] % (Auto) (0.0-8.0) % Eos % (Auto) (0.0-4.0) % Baso % (Auto) (0.0-2.0) % Neut # (Auto) (1.8-7.7) th/mm3 Lymph # (Auto) (1.0-4.8) th/mm3 [place] # (Auto) (0.0-0.9) th/mm3 Eos # (Auto) (0.0-0.4) th/mm3 Baso # (Auto) (0.0-0.2) th/mm3 WBC Differential Diff Scan Differential Comment Platelet Estimate (Normal) Platelet Morphology (Normal) PT (9.8-11.6) sec INR Ratio APTT (24.3-30.1) sec Puncture Site Patient Temperature O2 Saturation (90-100) % ABG pH (7.380-7.420) ABG pCO2 (38-42) mmHg ABG pO2 (61-120) mmHg ABG HCO3 (22-26) mmol/L ABG O2 Content (12.0-20.0) Vol % ABG Base Excess (-2-2) mmol/L ABG Methemoglobin (0-2) % Dionte Test VBG pH (7.360-7.400) VBG pCO2 (44-48) mmHG VBG pO2 (35-40) mmHG VBG HCO3 (22-26) mmol/L VBG O2 Saturation (70-76) % VBG O2 Content (9.0-17.0) Vol % VBG Base Excess (-2-2) mmol/L VBG Carboxyhemoglobin (0-4) % VBG Methemoglobin (0-2) % Hemoglobin (12.0-16.0) G/DL Carboxyhemoglobin (0-4) % O2 Delivery Device Liter Flow L/M Vent Setting Inspired O2 % Critical Value Sodium (136-145) meq/L Potassium (3.5-5.1) meq/L Chloride (98-107) meq/L Carbon Dioxide (21.0-32.0) meq/L Anion Gap (5-15) meq/L BUN (7-18) mg/dL Creatinine 3.50 H (0.60-1.30) mg/dL Estimated GFR 21 L (>89) mL/min POC Glucose (68-110) mg/dl Random Glucose (74-106) mg/dL Calcium (8.5-10.1) mg/dL Phosphorus (2.5-4.9) mg/dL Magnesium (1.5-2.5) mg/dL Iron (65-175) mcg/dL TIBC (250-450) mcg/dL % Saturation (20-50) % Ferritin (26-388) ng/mL Total Bilirubin (0.2-1.0) mg/dL AST (15-37) U/L ALT (12-78) U/L Alkaline Phosphatase (45-117) U/L Total Protein (6.4-8.2) g/dL Albumin (3.4-5.0) g/dL Lipase (73-393) U/L Vitamin B12 (193-986) pg/mL Folate (3.1-17.5) ng/mL Ur Collection Type Cath Urine Color Yellow (Yellw/Straw) Urine Clarity Clear (Clear) Urine pH 5.5 (5.0-8.5) Ur Specific [place] Greater/equal 1.030 (1.002-1.035) Urine Protein 30 H (Neg-Trace) mg/dL Urine Glucose (UA) Negative (Negative) mg/dL Urine Ketones Trace H (Negative) mg/dL Urine Occult Blood Trace (Negative) Urine Nitrate Negative (Negative) Urine Bilirubin Negative (Negative) Urine Ictotest Negative (Negative) Urine Urobilinogen 1.0 (Less than 2) mg/dL Ur Leukocyte Esterase Negative (Negative) Urine WBC 0-5 (0-5) /hpf Ur Squamous Epith Cells 0-5 (0-5) /hpf Ur Renal Epithelial Cell 1-5 H (None) /hpf Urine Bacteria Occasional H (None) /hpf Hyaline Casts Greater than 30 H (0-3) /lpf Micro UA Comment Cath-culture ind Ur Microscopic Review Microscopic reviewed Urine Culture Comments Cath-cult indicated Ur Random Sodium 42 meq/L St C. diff Tox Epid 027 (Negative) C. difficile Tox (PCR) (Negative) Blood Type Antibody Screen MTS Gel Crossmatch 03/06/18 03/06/18 03/07/18 Range/Units 07:50 07:50 00:45 CBC w Diff Slide review pending WBC 8.9 (4.0-11.0) th/mm3 RBC 3.50 L (4.50-5.90) mil/mm3 Hgb 12.8 L (13.0-17.0) gm/dL Hct 39.3 (39.0-51.0) % MCV 112.5 H (80.0-100.0) fL MCH 36.5 H (27.0-34.0) pg MCHC 32.5 (32.0-36.0) % RDW 15.5 (11.6-17.2) % Plt Count 217 (150-450) th/mm3 MPV 7.7 (7.0-11.0) fL Neut % (Auto) 75.1 H (16.0-70.0) % Lymph % (Auto) 15.8 (9.0-44.0) % [place] % (Auto) 8.2 H (0.0-8.0) % Eos % (Auto) 0.3 (0.0-4.0) % Baso % (Auto) 0.6 (0.0-2.0) % Neut # (Auto) 6.7 (1.8-7.7) th/mm3 Lymph # (Auto) 1.4 (1.0-4.8) th/mm3 [place] # (Auto) 0.7 (0.0-0.9) th/mm3 Eos # (Auto) 0.0 (0.0-0.4) th/mm3 Baso # (Auto) 0.1 (0.0-0.2) th/mm3 WBC Differential . Diff Scan Auto diff confirmed Differential Comment . Platelet Estimate Normal (Normal) Platelet Morphology Normal (Normal) PT (9.8-11.6) sec INR Ratio APTT (24.3-30.1) sec Puncture Site Patient Temperature O2 Saturation (90-100) % ABG pH (7.380-7.420) ABG pCO2 (38-42) mmHg ABG pO2 (61-120) mmHg ABG HCO3 (22-26) mmol/L ABG O2 Content (12.0-20.0) Vol % ABG Base Excess (-2-2) mmol/L ABG Methemoglobin (0-2) % Dionte Test VBG pH (7.360-7.400) VBG pCO2 (44-48) mmHG VBG pO2 (35-40) mmHG VBG HCO3 (22-26) mmol/L VBG O2 Saturation (70-76) % VBG O2 Content (9.0-17.0) Vol % VBG Base Excess (-2-2) mmol/L VBG Carboxyhemoglobin (0-4) % VBG Methemoglobin (0-2) % Hemoglobin (12.0-16.0) G/DL Carboxyhemoglobin (0-4) % O2 Delivery Device Liter Flow L/M Vent Setting Inspired O2 % Critical Value Sodium 145 (136-145) meq/L Potassium 4.4 (3.5-5.1) meq/L Chloride 113 H (98-107) meq/L Carbon Dioxide 22.6 (21.0-32.0) meq/L Anion Gap 9 (5-15) meq/L BUN 24 H (7-18) mg/dL Creatinine 2.20 H (0.60-1.30) mg/dL Estimated GFR 36 L (>89) mL/min POC Glucose (68-110) mg/dl Random Glucose 70 L (74-106) mg/dL Calcium 8.6 (8.5-10.1) mg/dL Phosphorus (2.5-4.9) mg/dL Magnesium (1.5-2.5) mg/dL Iron (65-175) mcg/dL TIBC (250-450) mcg/dL % Saturation (20-50) % Ferritin (26-388) ng/mL Total Bilirubin 0.6 (0.2-1.0) mg/dL AST 13 L (15-37) U/L ALT 14 (12-78) U/L Alkaline Phosphatase 71 (45-117) U/L Total Protein 5.9 L D (6.4-8.2) g/dL Albumin 2.8 L (3.4-5.0) g/dL Lipase (73-393) U/L Vitamin B12 (193-986) pg/mL Folate (3.1-17.5) ng/mL Ur Collection Type Urine Color (Yellw/Straw) Urine Clarity (Clear) Urine pH (5.0-8.5) Ur Specific [place] (1.002-1.035) Urine Protein (Neg-Trace) mg/dL Urine Glucose (UA) (Negative) mg/dL Urine Ketones (Negative) mg/dL Urine Occult Blood (Negative) Urine Nitrate (Negative) Urine Bilirubin (Negative) Urine Ictotest (Negative) Urine Urobilinogen (Less than 2) mg/dL Ur Leukocyte Esterase (Negative) Urine WBC (0-5) /hpf Ur Squamous Epith Cells (0-5) /hpf Ur Renal Epithelial Cell (None) /hpf Urine Bacteria (None) /hpf Hyaline Casts (0-3) /lpf Micro UA Comment Ur Microscopic Review Urine Culture Comments Ur Random Sodium meq/L St C. diff Tox Epid 027 Negative (Negative) C. difficile Tox (PCR) Negative (Negative) Blood Type Antibody Screen MTS Gel Crossmatch 03/07/18 03/08/18 03/08/18 Range/Units 10:15 05:46 05:46 CBC w Diff WBC (4.0-11.0) th/mm3 RBC (4.50-5.90) mil/mm3 Hgb (13.0-17.0) gm/dL Hct (39.0-51.0) % MCV (80.0-100.0) fL MCH (27.0-34.0) pg MCHC (32.0-36.0) % RDW (11.6-17.2) % Plt Count (150-450) th/mm3 MPV (7.0-11.0) fL Neut % (Auto) (16.0-70.0) % Lymph % (Auto) (9.0-44.0) % [place] % (Auto) (0.0-8.0) % Eos % (Auto) (0.0-4.0) % Baso % (Auto) (0.0-2.0) % Neut # (Auto) (1.8-7.7) th/mm3 Lymph # (Auto) (1.0-4.8) th/mm3 [place] # (Auto) (0.0-0.9) th/mm3 Eos # (Auto) (0.0-0.4) th/mm3 Baso # (Auto) (0.0-0.2) th/mm3 WBC Differential Diff Scan Differential Comment Platelet Estimate (Normal) Platelet Morphology (Normal) PT (9.8-11.6) sec INR Ratio APTT (24.3-30.1) sec Puncture Site Patient Temperature O2 Saturation (90-100) % ABG pH (7.380-7.420) ABG pCO2 (38-42) mmHg ABG pO2 (61-120) mmHg ABG HCO3 (22-26) mmol/L ABG O2 Content (12.0-20.0) Vol % ABG Base Excess (-2-2) mmol/L ABG Methemoglobin (0-2) % Dionte Test VBG pH (7.360-7.400) VBG pCO2 (44-48) mmHG VBG pO2 (35-40) mmHG VBG HCO3 (22-26) mmol/L VBG O2 Saturation (70-76) % VBG O2 Content (9.0-17.0) Vol % VBG Base Excess (-2-2) mmol/L VBG Carboxyhemoglobin (0-4) % VBG Methemoglobin (0-2) % Hemoglobin (12.0-16.0) G/DL Carboxyhemoglobin (0-4) % O2 Delivery Device Liter Flow L/M Vent Setting Inspired O2 % Critical Value Sodium 139 137 (136-145) meq/L Potassium 3.6 D 3.2 L (3.5-5.1) meq/L Chloride 106 103 (98-107) meq/L Carbon Dioxide 22.5 25.3 (21.0-32.0) meq/L Anion Gap 11 9 (5-15) meq/L BUN 13 9 (7-18) mg/dL Creatinine 1.20 0.91 (0.60-1.30) mg/dL Estimated GFR 72 L Greater than 89 (>89) mL/min POC Glucose (68-110) mg/dl Random Glucose 99 137 H (74-106) mg/dL Calcium 8.1 L 8.1 L (8.5-10.1) mg/dL Phosphorus 1.8 L (2.5-4.9) mg/dL Magnesium 1.0 L (1.5-2.5) mg/dL Iron (65-175) mcg/dL TIBC (250-450) mcg/dL % Saturation (20-50) % Ferritin (26-388) ng/mL Total Bilirubin (0.2-1.0) mg/dL AST (15-37) U/L ALT (12-78) U/L Alkaline Phosphatase (45-117) U/L Total Protein (6.4-8.2) g/dL Albumin (3.4-5.0) g/dL Lipase (73-393) U/L Vitamin B12 (193-986) pg/mL Folate (3.1-17.5) ng/mL Ur Collection Type Urine Color (Yellw/Straw) Urine Clarity (Clear) Urine pH (5.0-8.5) Ur Specific [place] (1.002-1.035) Urine Protein (Neg-Trace) mg/dL Urine Glucose (UA) (Negative) mg/dL Urine Ketones (Negative) mg/dL Urine Occult Blood (Negative) Urine Nitrate (Negative) Urine Bilirubin (Negative) Urine Ictotest (Negative) Urine Urobilinogen (Less than 2) mg/dL Ur Leukocyte Esterase (Negative) Urine WBC (0-5) /hpf Ur Squamous Epith Cells (0-5) /hpf Ur Renal Epithelial Cell (None) /hpf Urine Bacteria (None) /hpf Hyaline Casts (0-3) /lpf Micro UA Comment Ur Microscopic Review Urine Culture Comments Ur Random Sodium meq/L St C. diff Tox Epid 027 (Negative) C. difficile Tox (PCR) (Negative) Blood Type Antibody Screen MTS Gel Crossmatch 03/09/18 03/10/18 03/10/18 Range/Units 05:47 05:12 05:12 CBC w Diff Auto diff final WBC 9.3 (4.0-11.0) th/mm3 RBC 2.39 L (4.50-5.90) mil/mm3 Hgb 9.1 L (13.0-17.0) gm/dL Hct 26.3 L (39.0-51.0) % MCV 109.9 H (80.0-100.0) fL MCH 38.0 H (27.0-34.0) pg MCHC 34.6 (32.0-36.0) % RDW 15.8 (11.6-17.2) % Plt Count 196 (150-450) th/mm3 MPV 8.6 (7.0-11.0) fL Neut % (Auto) 70.0 (16.0-70.0) % Lymph % (Auto) 18.0 (9.0-44.0) % [place] % (Auto) 11.3 H (0.0-8.0) % Eos % (Auto) 0.4 (0.0-4.0) % Baso % (Auto) 0.3 (0.0-2.0) % Neut # (Auto) 6.5 (1.8-7.7) th/mm3 Lymph # (Auto) 1.7 (1.0-4.8) th/mm3 [place] # (Auto) 1.1 H (0.0-0.9) th/mm3 Eos # (Auto) 0.0 (0.0-0.4) th/mm3 Baso # (Auto) 0.0 (0.0-0.2) th/mm3 WBC Differential . Diff Scan Differential Comment . Platelet Estimate (Normal) Platelet Morphology (Normal) PT (9.8-11.6) sec INR Ratio APTT (24.3-30.1) sec Puncture Site Patient Temperature O2 Saturation (90-100) % ABG pH (7.380-7.420) ABG pCO2 (38-42) mmHg ABG pO2 (61-120) mmHg ABG HCO3 (22-26) mmol/L ABG O2 Content (12.0-20.0) Vol % ABG Base Excess (-2-2) mmol/L ABG Methemoglobin (0-2) % Dionte Test VBG pH (7.360-7.400) VBG pCO2 (44-48) mmHG VBG pO2 (35-40) mmHG VBG HCO3 (22-26) mmol/L VBG O2 Saturation (70-76) % VBG O2 Content (9.0-17.0) Vol % VBG Base Excess (-2-2) mmol/L VBG Carboxyhemoglobin (0-4) % VBG Methemoglobin (0-2) % Hemoglobin (12.0-16.0) G/DL Carboxyhemoglobin (0-4) % O2 Delivery Device Liter Flow L/M Vent Setting Inspired O2 % Critical Value Sodium 135 L 140 (136-145) meq/L Potassium 4.8 D 4.4 (3.5-5.1) meq/L Chloride 104 106 (98-107) meq/L Carbon Dioxide 23.9 24.0 (21.0-32.0) meq/L Anion Gap 7 10 (5-15) meq/L BUN 18 37 H (7-18) mg/dL Creatinine 0.84 0.94 (0.60-1.30) mg/dL Estimated GFR Greater than 89 Greater than 89 (>89) mL/min POC Glucose (68-110) mg/dl Random Glucose 92 93 (74-106) mg/dL Calcium 8.1 L 7.9 L (8.5-10.1) mg/dL Phosphorus 3.5 D (2.5-4.9) mg/dL Magnesium 1.8 D 1.6 (1.5-2.5) mg/dL Iron (65-175) mcg/dL TIBC (250-450) mcg/dL % Saturation (20-50) % Ferritin (26-388) ng/mL Total Bilirubin (0.2-1.0) mg/dL AST (15-37) U/L ALT (12-78) U/L Alkaline Phosphatase (45-117) U/L Total Protein (6.4-8.2) g/dL Albumin (3.4-5.0) g/dL Lipase (73-393) U/L Vitamin B12 (193-986) pg/mL Folate (3.1-17.5) ng/mL Ur Collection Type Urine Color (Yellw/Straw) Urine Clarity (Clear) Urine pH (5.0-8.5) Ur Specific [place] (1.002-1.035) Urine Protein (Neg-Trace) mg/dL Urine Glucose (UA) (Negative) mg/dL Urine Ketones (Negative) mg/dL Urine Occult Blood (Negative) Urine Nitrate (Negative) Urine Bilirubin (Negative) Urine Ictotest (Negative) Urine Urobilinogen (Less than 2) mg/dL Ur Leukocyte Esterase (Negative) Urine WBC (0-5) /hpf Ur Squamous Epith Cells (0-5) /hpf Ur Renal Epithelial Cell (None) /hpf Urine Bacteria (None) /hpf Hyaline Casts (0-3) /lpf Micro UA Comment Ur Microscopic Review Urine Culture Comments Ur Random Sodium meq/L St C. diff Tox Epid 027 (Negative) C. difficile Tox (PCR) (Negative) Blood Type Antibody Screen MTS Gel Crossmatch 03/10/18 03/10/18 03/10/18 Range/Units 08:35 08:45 08:45 CBC w Diff WBC (4.0-11.0) th/mm3 RBC (4.50-5.90) mil/mm3 Hgb (13.0-17.0) gm/dL Hct (39.0-51.0) % MCV (80.0-100.0) fL MCH (27.0-34.0) pg MCHC (32.0-36.0) % RDW (11.6-17.2) % Plt Count (150-450) th/mm3 MPV (7.0-11.0) fL Neut % (Auto) (16.0-70.0) % Lymph % (Auto) (9.0-44.0) % [place] % (Auto) (0.0-8.0) % Eos % (Auto) (0.0-4.0) % Baso % (Auto) (0.0-2.0) % Neut # (Auto) (1.8-7.7) th/mm3 Lymph # (Auto) (1.0-4.8) th/mm3 [place] # (Auto) (0.0-0.9) th/mm3 Eos # (Auto) (0.0-0.4) th/mm3 Baso # (Auto) (0.0-0.2) th/mm3 WBC Differential Diff Scan Differential Comment Platelet Estimate (Normal) Platelet Morphology (Normal) PT 11.7 H (9.8-11.6) sec INR 1.2 Ratio APTT 56.4 H (24.3-30.1) sec Puncture Site Patient Temperature O2 Saturation (90-100) % ABG pH (7.380-7.420) ABG pCO2 (38-42) mmHg ABG pO2 (61-120) mmHg ABG HCO3 (22-26) mmol/L ABG O2 Content (12.0-20.0) Vol % ABG Base Excess (-2-2) mmol/L ABG Methemoglobin (0-2) % Dionte Test VBG pH (7.360-7.400) VBG pCO2 (44-48) mmHG VBG pO2 (35-40) mmHG VBG HCO3 (22-26) mmol/L VBG O2 Saturation (70-76) % VBG O2 Content (9.0-17.0) Vol % VBG Base Excess (-2-2) mmol/L VBG Carboxyhemoglobin (0-4) % VBG Methemoglobin (0-2) % Hemoglobin (12.0-16.0) G/DL Carboxyhemoglobin (0-4) % O2 Delivery Device Liter Flow L/M Vent Setting Inspired O2 % Critical Value Sodium 139 (136-145) meq/L Potassium 4.5 (3.5-5.1) meq/L Chloride 107 (98-107) meq/L Carbon Dioxide 22.1 (21.0-32.0) meq/L Anion Gap 10 (5-15) meq/L BUN 40 H (7-18) mg/dL Creatinine 1.10 (0.60-1.30) mg/dL Estimated GFR 80 L (>89) mL/min POC Glucose (68-110) mg/dl Random Glucose 108 H (74-106) mg/dL Calcium 7.9 L (8.5-10.1) mg/dL Phosphorus (2.5-4.9) mg/dL Magnesium (1.5-2.5) mg/dL Iron (65-175) mcg/dL TIBC (250-450) mcg/dL % Saturation (20-50) % Ferritin (26-388) ng/mL Total Bilirubin 0.2 (0.2-1.0) mg/dL AST 14 L (15-37) U/L ALT 13 (12-78) U/L Alkaline Phosphatase 48 (45-117) U/L Total Protein 4.5 L D (6.4-8.2) g/dL Albumin 2.0 L (3.4-5.0) g/dL Lipase (73-393) U/L Vitamin B12 (193-986) pg/mL Folate (3.1-17.5) ng/mL Ur Collection Type Urine Color (Yellw/Straw) Urine Clarity (Clear) Urine pH (5.0-8.5) Ur Specific [place] (1.002-1.035) Urine Protein (Neg-Trace) mg/dL Urine Glucose (UA) (Negative) mg/dL Urine Ketones (Negative) mg/dL Urine Occult Blood (Negative) Urine Nitrate (Negative) Urine Bilirubin (Negative) Urine Ictotest (Negative) Urine Urobilinogen (Less than 2) mg/dL Ur Leukocyte Esterase (Negative) Urine WBC (0-5) /hpf Ur Squamous Epith Cells (0-5) /hpf Ur Renal Epithelial Cell (None) /hpf Urine Bacteria (None) /hpf Hyaline Casts (0-3) /lpf Micro UA Comment Ur Microscopic Review Urine Culture Comments Ur Random Sodium meq/L St C. diff Tox Epid 027 (Negative) C. difficile Tox (PCR) (Negative) Blood Type O Positive Antibody Screen Negative MTS Gel Crossmatch See Detail 03/10/18 03/10/18 03/10/18 Range/Units 08:45 08:45 08:56 CBC w Diff Auto diff final WBC 9.8 (4.0-11.0) th/mm3 RBC 2.17 L (4.50-5.90) mil/mm3 Hgb 8.2 L (13.0-17.0) gm/dL Hct 23.7 L (39.0-51.0) % MCV 109.6 H (80.0-100.0) fL MCH 37.8 H (27.0-34.0) pg MCHC 34.5 (32.0-36.0) % RDW 15.9 (11.6-17.2) % Plt Count 186 (150-450) th/mm3 MPV 7.9 (7.0-11.0) fL Neut % (Auto) 70.2 H (16.0-70.0) % Lymph % (Auto) 17.7 (9.0-44.0) % [place] % (Auto) 11.2 H (0.0-8.0) % Eos % (Auto) 0.3 (0.0-4.0) % Baso % (Auto) 0.6 (0.0-2.0) % Neut # (Auto) 6.9 (1.8-7.7) th/mm3 Lymph # (Auto) 1.7 (1.0-4.8) th/mm3 [place] # (Auto) 1.1 H (0.0-0.9) th/mm3 Eos # (Auto) 0.0 (0.0-0.4) th/mm3 Baso # (Auto) 0.1 (0.0-0.2) th/mm3 WBC Differential . Diff Scan Differential Comment . Platelet Estimate (Normal) Platelet Morphology (Normal) PT (9.8-11.6) sec INR Ratio APTT (24.3-30.1) sec Puncture Site Right brachial Patient Temperature 98.6 O2 Saturation 98 (90-100) % ABG pH 7.49 H (7.380-7.420) ABG pCO2 26 L (38-42) mmHg ABG pO2 421 H (61-120) mmHg ABG HCO3 19 L (22-26) mmol/L ABG O2 Content 10.0 L (12.0-20.0) Vol % ABG Base Excess -3.5 L (-2-2) mmol/L ABG Methemoglobin 0.6 (0-2) % Dionte Test Present VBG pH (7.360-7.400) VBG pCO2 (44-48) mmHG VBG pO2 (35-40) mmHG VBG HCO3 (22-26) mmol/L VBG O2 Saturation (70-76) % VBG O2 Content (9.0-17.0) Vol % VBG Base Excess (-2-2) mmol/L VBG Carboxyhemoglobin (0-4) % VBG Methemoglobin (0-2) % Hemoglobin 6.4 L* (12.0-16.0) G/DL Carboxyhemoglobin 1.2 (0-4) % O2 Delivery Device Nrb Liter Flow 15.00 L/M Vent Setting Inspired O2 100 % Critical Value Yes Sodium (136-145) meq/L Potassium (3.5-5.1) meq/L Chloride (98-107) meq/L Carbon Dioxide (21.0-32.0) meq/L Anion Gap (5-15) meq/L BUN (7-18) mg/dL Creatinine (0.60-1.30) mg/dL Estimated GFR (>89) mL/min POC Glucose (68-110) mg/dl Random Glucose (74-106) mg/dL Calcium (8.5-10.1) mg/dL Phosphorus (2.5-4.9) mg/dL Magnesium (1.5-2.5) mg/dL Iron 33 L (65-175) mcg/dL TIBC 162 L (250-450) mcg/dL % Saturation 20.3 (20-50) % Ferritin 431 H (26-388) ng/mL Total Bilirubin (0.2-1.0) mg/dL AST (15-37) U/L ALT (12-78) U/L Alkaline Phosphatase (45-117) U/L Total Protein (6.4-8.2) g/dL Albumin (3.4-5.0) g/dL Lipase (73-393) U/L Vitamin B12 250 (193-986) pg/mL Folate 3.6 (3.1-17.5) ng/mL Ur Collection Type Urine Color (Yellw/Straw) Urine Clarity (Clear) Urine pH (5.0-8.5) Ur Specific [place] (1.002-1.035) Urine Protein (Neg-Trace) mg/dL Urine Glucose (UA) (Negative) mg/dL Urine Ketones (Negative) mg/dL Urine Occult Blood (Negative) Urine Nitrate (Negative) Urine Bilirubin (Negative) Urine Ictotest (Negative) Urine Urobilinogen (Less than 2) mg/dL Ur Leukocyte Esterase (Negative) Urine WBC (0-5) /hpf Ur Squamous Epith Cells (0-5) /hpf Ur Renal Epithelial Cell (None) /hpf Urine Bacteria (None) /hpf Hyaline Casts (0-3) /lpf Micro UA Comment Ur Microscopic Review Urine Culture Comments Ur Random Sodium meq/L St C. diff Tox Epid 027 (Negative) C. difficile Tox (PCR) (Negative) Blood Type Antibody Screen MTS Gel Crossmatch 03/10/18 03/10/18 03/10/18 Range/Units 10:36 10:36 11:23 CBC w Diff WBC (4.0-11.0) th/mm3 RBC (4.50-5.90) mil/mm3 Hgb (13.0-17.0) gm/dL Hct (39.0-51.0) % MCV (80.0-100.0) fL MCH (27.0-34.0) pg MCHC (32.0-36.0) % RDW (11.6-17.2) % Plt Count (150-450) th/mm3 MPV (7.0-11.0) fL Neut % (Auto) (16.0-70.0) % Lymph % (Auto) (9.0-44.0) % [place] % (Auto) (0.0-8.0) % Eos % (Auto) (0.0-4.0) % Baso % (Auto) (0.0-2.0) % Neut # (Auto) (1.8-7.7) th/mm3 Lymph # (Auto) (1.0-4.8) th/mm3 [place] # (Auto) (0.0-0.9) th/mm3 Eos # (Auto) (0.0-0.4) th/mm3 Baso # (Auto) (0.0-0.2) th/mm3 WBC Differential Diff Scan Differential Comment Platelet Estimate (Normal) Platelet Morphology (Normal) PT (9.8-11.6) sec INR Ratio APTT (24.3-30.1) sec Puncture Site Right brachial Patient Temperature 98.6 O2 Saturation 99 (90-100) % ABG pH 7.31 L (7.380-7.420) ABG pCO2 23 L* (38-42) mmHg ABG pO2 255 H (61-120) mmHg ABG HCO3 11 L* (22-26) mmol/L ABG O2 Content 6.4 L (12.0-20.0) Vol % ABG Base Excess -13.8 L (-2-2) mmol/L ABG Methemoglobin 0.4 (0-2) % Dionte Test VBG pH (7.360-7.400) VBG pCO2 (44-48) mmHG VBG pO2 (35-40) mmHG VBG HCO3 (22-26) mmol/L VBG O2 Saturation (70-76) % VBG O2 Content (9.0-17.0) Vol % VBG Base Excess (-2-2) mmol/L VBG Carboxyhemoglobin (0-4) % VBG Methemoglobin (0-2) % Hemoglobin 4.1 L* (12.0-16.0) G/DL Carboxyhemoglobin 0.9 (0-4) % O2 Delivery Device Nrb Liter Flow L/M Vent Setting Inspired O2 100 % Critical Value Yes Sodium (136-145) meq/L Potassium (3.5-5.1) meq/L Chloride (98-107) meq/L Carbon Dioxide (21.0-32.0) meq/L Anion Gap (5-15) meq/L BUN (7-18) mg/dL Creatinine (0.60-1.30) mg/dL Estimated GFR (>89) mL/min POC Glucose 137 H (68-110) mg/dl Random Glucose (74-106) mg/dL Calcium (8.5-10.1) mg/dL Phosphorus (2.5-4.9) mg/dL Magnesium (1.5-2.5) mg/dL Iron (65-175) mcg/dL TIBC (250-450) mcg/dL % Saturation (20-50) % Ferritin (26-388) ng/mL Total Bilirubin (0.2-1.0) mg/dL AST (15-37) U/L ALT (12-78) U/L Alkaline Phosphatase (45-117) U/L Total Protein (6.4-8.2) g/dL Albumin (3.4-5.0) g/dL Lipase (73-393) U/L Vitamin B12 (193-986) pg/mL Folate (3.1-17.5) ng/mL Ur Collection Type Urine Color (Yellw/Straw) Urine Clarity (Clear) Urine pH (5.0-8.5) Ur Specific [place] (1.002-1.035) Urine Protein (Neg-Trace) mg/dL Urine Glucose (UA) (Negative) mg/dL Urine Ketones (Negative) mg/dL Urine Occult Blood (Negative) Urine Nitrate (Negative) Urine Bilirubin (Negative) Urine Ictotest (Negative) Urine Urobilinogen (Less than 2) mg/dL Ur Leukocyte Esterase (Negative) Urine WBC (0-5) /hpf Ur Squamous Epith Cells (0-5) /hpf Ur Renal Epithelial Cell (None) /hpf Urine Bacteria (None) /hpf Hyaline Casts (0-3) /lpf Micro UA Comment Ur Microscopic Review Urine Culture Comments Ur Random Sodium meq/L St C. diff Tox Epid 027 (Negative) C. difficile Tox (PCR) (Negative) Blood Type Antibody Screen MTS Gel Crossmatch See Detail 03/10/18 03/10/18 Range/Units 11:39 11:55 CBC w Diff WBC (4.0-11.0) th/mm3 RBC (4.50-5.90) mil/mm3 Hgb (13.0-17.0) gm/dL Hct (39.0-51.0) % MCV (80.0-100.0) fL MCH (27.0-34.0) pg MCHC (32.0-36.0) % RDW (11.6-17.2) % Plt Count (150-450) th/mm3 MPV (7.0-11.0) fL Neut % (Auto) (16.0-70.0) % Lymph % (Auto) (9.0-44.0) % [place] % (Auto) (0.0-8.0) % Eos % (Auto) (0.0-4.0) % Baso % (Auto) (0.0-2.0) % Neut # (Auto) (1.8-7.7) th/mm3 Lymph # (Auto) (1.0-4.8) th/mm3 [place] # (Auto) (0.0-0.9) th/mm3 Eos # (Auto) (0.0-0.4) th/mm3 Baso # (Auto) (0.0-0.2) th/mm3 WBC Differential Diff Scan Differential Comment Platelet Estimate (Normal) Platelet Morphology (Normal) PT (9.8-11.6) sec INR Ratio APTT (24.3-30.1) sec Puncture Site Art line Central line Patient Temperature 98.6 98.6 O2 Saturation 99 (90-100) % ABG pH 7.36 L (7.380-7.420) ABG pCO2 24 L* (38-42) mmHg ABG pO2 546 H (61-120) mmHg ABG HCO3 13 L* (22-26) mmol/L ABG O2 Content 12.5 (12.0-20.0) Vol % ABG Base Excess -11.1 L (-2-2) mmol/L ABG Methemoglobin 0.4 (0-2) % Dionte Test VBG pH 7.33 L (7.360-7.400) VBG pCO2 32 L (44-48) mmHG VBG pO2 26 L* (35-40) mmHG VBG HCO3 16 L (22-26) mmol/L VBG O2 Saturation 52 L (70-76) % VBG O2 Content 6.3 L (9.0-17.0) Vol % VBG Base Excess -8.5 L (-2-2) mmol/L VBG Carboxyhemoglobin 1.0 (0-4) % VBG Methemoglobin 0.7 (0-2) % Hemoglobin 8.0 L 8.6 L (12.0-16.0) G/DL Carboxyhemoglobin 1.0 (0-4) % O2 Delivery Device Ventilator Ventilator Liter Flow L/M Vent Setting 18/600/peep 5 18/600/peep 5 Inspired O2 100 50 % Critical Value Yes Yes Sodium (136-145) meq/L Potassium (3.5-5.1) meq/L Chloride (98-107) meq/L Carbon Dioxide (21.0-32.0) meq/L Anion Gap (5-15) meq/L BUN (7-18) mg/dL Creatinine (0.60-1.30) mg/dL Estimated GFR (>89) mL/min POC Glucose (68-110) mg/dl Random Glucose (74-106) mg/dL Calcium (8.5-10.1) mg/dL Phosphorus (2.5-4.9) mg/dL Magnesium (1.5-2.5) mg/dL Iron (65-175) mcg/dL TIBC (250-450) mcg/dL % Saturation (20-50) % Ferritin (26-388) ng/mL Total Bilirubin (0.2-1.0) mg/dL AST (15-37) U/L ALT (12-78) U/L Alkaline Phosphatase (45-117) U/L Total Protein (6.4-8.2) g/dL Albumin (3.4-5.0) g/dL Lipase (73-393) U/L Vitamin B12 (193-986) pg/mL Folate (3.1-17.5) ng/mL Ur Collection Type Urine Color (Yellw/Straw) Urine Clarity (Clear) Urine pH (5.0-8.5) Ur Specific [place] (1.002-1.035) Urine Protein (Neg-Trace) mg/dL Urine Glucose (UA) (Negative) mg/dL Urine Ketones (Negative) mg/dL Urine Occult Blood (Negative) Urine Nitrate (Negative) Urine Bilirubin (Negative) Urine Ictotest (Negative) Urine Urobilinogen (Less than 2) mg/dL Ur Leukocyte Esterase (Negative) Urine WBC (0-5) /hpf Ur Squamous Epith Cells (0-5) /hpf Ur Renal Epithelial Cell (None) /hpf Urine Bacteria (None) /hpf Hyaline Casts (0-3) /lpf Micro UA Comment Ur Microscopic Review Urine Culture Comments Ur Random Sodium meq/L St C. diff Tox Epid 027 (Negative) C. difficile Tox (PCR) (Negative) Blood Type Antibody Screen MTS Gel Crossmatch Imaging Data Radiologist's impression: Abdomen/Pelvis CT 03/05/18 16:17 CONCLUSION: 1. I do not see an etiology of patient's left lower quadrant pain. 2. There are no inflammatory changes 3. Bladder decompressed by Jeong. Chest X-Ray 03/10/18 00:00 CONCLUSION: Consolidating airspace disease in the left lower lobe Chronic lung changes Endotracheal tube in good position. Chest X-Ray 03/10/18 11:34 CONCLUSION: Status post placement of right subclavian central venous catheter which is in good position. No evidence of pneumothorax. COPD Left basilar airspace disease; unchanged Discharge Plan Discharge Disposition Patient Disposition: 30 Still Patient Discharge Condition Condition: Stable Discharge Details Anticipated Discharge Date: 03/10/18 Discharge Comment: Do not discharge before electrolyte replacements are given Diagnosis: SHEEBA (acute kidney injury), Abdominal pain Physicians Team ED Provider: Ramon Aggarwal Primary Care Provider: [facility]Physician 's Attending Provider: Francisco Zapata Other Providers: Jennie Bautista ; Carmelo Cuello V ; Francisco Zapata Status ED Status: Left Department Discharge Information Discharge Date/Time: 03/05/18 19:00
--- NOTE | 2018-03-10 11:22 | XR ---
EXAM DATE: 03/10/2018 11:14 AM EDT AGE/SEX: 73 years / Male INDICATIONS: Post intubation. CLINICAL DATA: This is the patient's subsequent encounter. Patient reports that signs and symptoms h ave been present for 1 day and indicates a pain score of Nonresponsive. MEDICAL/SURGICAL HISTORY: Hypertension. None. COMPARISON: No prior exams available for comparison. FINDINGS: A single AP view of the chest demonstrates placement of an endotracheal tube which is in good positio n 2 cm above the raffi. Consolidating airspace disease is identified in the left base. Chronic appearing interstitial lung changes are noted. Heart is normal in size. CONCLUSION: Consolidating airspace disease in the left lower lobe Chronic lung changes Endotracheal tube in good position. Electronically signed by: Som Beal MD 03/10/2018 11:20 AM EDT
[2018-03-10] MEDS ORDERED: Midazolam 50 MG/50 ML Inj 50 MG/50 ML BAG IV.CONT PRN (11:24)
[2018-03-10] MEDS ORDERED: fentaNYL 10 mcg/mL Premix Drip 2,500 MCG/250 ML BAG IV.SIG PRN (11:25)
[2018-03-10] MEDS: Succinylcholine Inj 100 MG/5 ML Syringe IV.PUSH ONE ×2 (11:30→15:10)
[2018-03-10] MEDS ORDERED: Bisacodyl 10 MG Supp RECTAL PRN (11:30)
[2018-03-10] MEDS: Etomidate Inj 20 MG/10 ML Ampul IV.PUSH ONE ×2 (11:35→15:10)
[2018-03-10] MEDS: Midazolam Inj 5 MG/ML 1 ML Vial ONE ×4 (11:35→15:12)
[2018-03-10] MEDS: Midazolam Inj 5 MG/ML 1 ML Vial IV.PUSH ONE ×2 (11:45→15:11)
[2018-03-10] MEDS ORDERED: Sodium Bicarbonate 8.4% Inj 50 MEQ/50 ML Syringe IV.PUSH ONE (11:46)
--- NOTE | 2018-03-10 11:49 | P.PCN ---
Date of procedure: 03/10/18 Pre-op diagnosis: Hemorrhagic shock Post-op diagnosis: same Procedure: Right subclavian central line placement Central line checklist completed, timeout completed. I wore a surgical cap, mask with protective eyewear, full gown and sterile gloves throughout the procedure. Right subclavian region was prepped using chlorhexidine scrub and draped in sterile fashion. Anesthesia was achieved over the vein using 1% lidocaine. The introducer needle was inserted into the right subclavian vein and venous blood was withdrawn. The syringe was removed and a guidewire was advanced into the introducer needle. A small incision was made at the skin surface with a scalpel and the introducer needle was exchanged for a dilator over the guidewire. After appropriate dilation was obtained, the dilator was exchanged over the wire for a triple lumen, 7F, 20 CM antibiotic coated central venous catheter. The wire was removed and the catheter was sutured in place at 17 cm. A sterile central line dressing was placed over the catheter at the insertion site. The patient tolerated the procedure without any hemodynamic compromise. At time of procedure completion, all ports aspirated and flushed properly. Post-procedure chest x-ray is pending at this time. Anesthesia: local Surgeon: Francisco Zapata Estimated blood loss (mL): 1 Condition: critical Disposition: ICU
--- NOTE | 2018-03-10 11:52 | P.PCN ---
Date of procedure: 03/10/18 Pre-op diagnosis: Hemorrhagic shock Post-op diagnosis: same Procedure: Right radial art line placement Patient remains hypotensive with hemorrhagic shock from GIB. Full sterile and barrier precautions were used. The left radial region was prepped using chlorhexidine scrub and draped in sterile fashion. The introducer needle was inserted into the radial artery with good arterial flash obtained. A guidewire was advanced into the introducer needle. After this introducer needle removed and a 20-gauge 16 cm arterial line was introduced into the radial artery and good wave form obtained. The wire was removed and the catheter was sutured in place at 15 cm. A sterile central line dressing was placed over the catheter at the insertion site. The patient tolerated the procedure well. Anesthesia: local Surgeon: Francisco Zapata Estimated blood loss (mL): 1 Condition: critical Disposition: ICU
[2018-03-10 11:58] LABS: ABG Base Excess -11.1 mmol/L (-2-2); ABG PCO2 24 mmHg (38-42); ABG PO2 546 mmHg (61-120)
[2018-03-10 12:01] LABS: VBG Base Excess -8.5 mmol/L (-2-2); VBG Blood Gas Oxygen Content 6.3 Vol % (9.0-17.0); VBG PCO2 32 mmHG (44-48); VBG PH 7.33 (7.360-7.400); VBG PO2 26 mmHG (35-40)
--- NOTE | 2018-03-10 12:03 | XR ---
EXAM DATE: 03/10/2018 12:00 PM EDT AGE/SEX: 73 years / Male INDICATIONS: Central line placement. CLINICAL DATA: This is the patient's subsequent encounter. Patient reports that signs and symptoms h ave been present for 1 day and indicates a pain score of 0/10. MEDICAL/SURGICAL HISTORY: Hypertension. None. COMPARISON: [facility], CHEST 1V SINGLE AP, 03/10/2018. . FINDINGS: Right subclavian central venous catheter has been inserted. There is no evidence of pneumothorax. Pulmonary hyperinflation as well as left basilar airspace disease remains evident. Tracheostomy tube remains in stable position. CONCLUSION: Status post placement of right subclavian central venous catheter which is in good position. No evidence of pneumothorax. COPD Left basilar airspace disease; unchanged Electronically signed by: Som Beal MD 03/10/2018 12:01 PM EDT
[2018-03-10 12:04] LABS: ABG Base Excess -13.8 mmol/L (-2-2); ABG PCO2 23 mmHg (38-42); ABG PO2 255 mmHg (61-120)
[2018-03-10 12:55] LABS: % Iron Saturation 20.3 % (20-50); Folate 3.6 ng/mL (3.1-17.5)
[2018-03-10] MEDS ORDERED: Calcium Chloride Inj 2 GM in Dextrose 5% in Water Inj 100 ML IV.SIG ONE ×2 (13:00)
[2018-03-10] MEDS ORDERED: Octreotide Inj 500 MCG in Sodium Chlor 0.9% Inj 500 ML IV.CONT SCH (13:00)
--- NOTE | 2018-03-10 13:38 | P.CONGI ---
History of Present Illness Consult date: 03/10/18 Consult reason: GIB Chief complaint: SHEEBA, Abd Pain History of Present Illness: This is a 73 yo M who initially presented to [facility] five days ago with complaints of LLQ abdominal pain, imaging did not reveal etiology for the pain or any acute findings. Pt was also being treated for SHEEBA, renal function was improving with IV fluid resuscitation. This morning pt began having significant amount of maroon and BRB colored stool with large clots, pt has had multiple episodes of this and now seems to be continuous. No reports of emesis or coffee ground/BRB secretions prior to intubation. Pt became hypotensive with decreasing oxygen sats and therefore has been intubated and on sedation. Call was placed to GI contact assembler for [place] who recommended transfer to main campus for emergent EGD and colonoscopy. Pt has been transfused 4 units of PRBCs and at this time is hemodynamically stable. Unable to obtain further history from patient because he is sedated and intubated. Unsure of previous EGD or colonoscopy. It is noted in pts records that he admitted to drinking a bottle of wine daily. <Colleen Gonzalez - Last Filed: 03/10/18 13:29> Review of Systems unobtainable due to endotracheal tube <Colleen Gonzalez - Last Filed: 03/10/18 13:29> PMFSH - History History Provided By: Patient - Medical History Medical History: Medical History (Last Reviewed 03/10/18 @ 10:07 by RAEGAN Soares) Hypertension History of prostate disorder - Surgical History Surgical History: Surgical History (Last Reviewed 03/10/18 @ 10:07 by RAEGAN Soares) No history of previous surgery - Family History Family History: Family History (Last Reviewed 03/10/18 @ 10:07 by RAEGAN Soares) Other Adopted - Tobacco History Second Hand Smoke Exposure: Yes Tobacco Use In Past 30 Days: Yes Smoking Status: Smoker, status unknown Tobacco Type: Cigarettes - Alcohol History How Often Do You Have a Drink Containing Alcohol: 4 or more times a week - Substance Use History Substance History: No History of Abuse - Travel History Recent Travel in the [place] Within the Last 8 Weeks: No Recent Travel Out of the Country Within the Last 8 Weeks: No - Immunization History Tetanus Immunization: Unable to Assess Hx Influenza Vaccine This Season: Yes <Colleen Gonzalez - Last Filed: 03/10/18 13:29> - Medical History Medical History: Medical History (Last Reviewed 03/10/18 @ 10:07 by RAEGAN Soares) Hypertension History of prostate disorder - Surgical History Surgical History: Surgical History (Last Reviewed 03/10/18 @ 10:07 by RAEGAN Soares) No history of previous surgery - Family History Family History: Family History (Last Reviewed 03/10/18 @ 10:07 by RAEGAN Soares) Other Adopted <Karime Stone - Last Filed: 03/10/18 13:45> Medications and Allergies Active Medications: Active Medications Acetaminophen (Tylenol) 650 mg PO Q4H PRN PRN Reason: Temp > 100.4 Al Hydroxide/Mg Hydroxide (Milk Of Martha Smith) 30 ml PO Q12H PRN PRN Reason: Mild Constipation Amlodipine Besylate (Norvasc) 10 mg PO DAILY [facility] Last Admin: 03/10/18 11:03 Dose: Not Given Bisacodyl (Dulcolax Supp) 10 mg RECTAL DAILY PRN PRN Reason: SEVERE CONSITIPATION Chlorhexidine Gluconate (Peridex 0.12% Oral Kit) 15 ml OROPHARYNG BID@0800, 2000 [facility] Chlorhexidine Gluconate (Chlorhexidine 2% Cloth) 3 pack TOPICAL DAILY@0400 [facility] Stop: 03/16/18 03:59 Chlorhexidine Gluconate (Chlorhexidine 2% Cloth) 3 pack TOPICAL DAILY@0400 PRN PRN Reason: Extra cloth needed Stop: 03/16/18 03:59 Clonidine HCl (Catapres) 0.1 mg PO Q6H PRN PRN Reason: SBP> OR = 180, DBP> OR = 100 Famotidine (Pepcid) 20 mg PO BID [facility] Flumazenil (Romazecon Inj) 0.2 mg IV.PUSH Q1M PRN PRN Reason: OVERSEDATION Haloperidol Lactate (Haldol Inj) 1 mg IV.PUSH Q15M PRN PRN Reason: for severe agitation Sodium Chloride (Ns Inj) 250 mls @ 15 mls/hr IV.SIG ONCE [facility] Stop: 03/11/18 01:39 Last Admin: 03/10/18 11:03 Dose: 15 mls/hr Pantoprazole Sodium 80 mg/ (Sodium Chloride) 100 mls @ 10 mls/hr IV.CONT Q10H [facility] Calcium Chloride 2 gm/ (Dextrose) 120 mls @ 120 mls/hr IV.SIG ONCE ONE Stop: 03/10/18 13:59 Fentanyl (Fentanyl 10 Mcg/Ml Premix Drip) 2,500 mcg in 250 mls @ 5 mls/hr IV.SIG TITRATE PRN; Protocol PRN Reason: Per Protocol Midazolam HCl (Versed Inj) 50 mg in 50 mls @ 2 mls/hr IV.CONT TITRATE PRN; Protocol PRN Reason: Per Protocol Sodium Chloride (Ns Inj) 250 mls @ 15 mls/hr IV.SIG ONCE [facility] Stop: 03/11/18 04:39 Norepinephrine Bitartrate (Levophed-Dextrose 4 Mg/250 Ml Drip) 4 mg in 250 mls @ 7.5 mls/hr IV.SIG TITRATE PRN; Protocol PRN Reason: Per Protocol Sodium Chloride (Ns Inj) 1,000 mls @ 84 mls/hr IV.CONT .[id number] [facility] Ceftriaxone Sodium 1,000 mg/ (Sodium Chloride) 100 mls @ 200 mls/hr IV.SIG Q24H [facility] Octreotide Acetate 500 mcg/ (Sodium Chloride) 500.5 mls @ 25.02 mls/hr IV.CONT .Q20H1M [facility] Lactulose (Lactulose Liq) 30 ml PO DAILY PRN PRN Reason: SEVERE CONSITIPATION Lorazepam (Ativan) 1 mg PO Q4H PRN PRN Reason: for CIWA 8-10 Lorazepam (Ativan) 2 mg PO Q2H PRN PRN Reason: for CIWA 11-14 Lorazepam (Ativan Inj) 2 mg IV.PUSH Q1H PRN PRN Reason: for CIWA 15-20 Lorazepam (Ativan Inj) 2 mg IV.PUSH Q15M PRN PRN Reason: for CIWA > 20 Lorazepam (Ativan Inj) 2 mg IV.PUSH Q4H PRN PRN Reason: Agitation/sedation Midazolam HCl (Versed Inj) 2 mg IV.PUSH Q1H PRN PRN Reason: SEDATION Ondansetron HCl (Zofran Inj) 4 mg IV.PUSH Q6H PRN PRN Reason: n/v Last Admin: 03/08/18 02:24 Dose: 4 mg Oxycodone HCl (Roxicodone) 5 mg PO Q4H PRN PRN Reason: pain 3-10 Last Admin: 03/07/18 18:15 Dose: 5 mg Senna/Docusate Sodium (Mairum-Colace) 1 tab PO BID [facility] Last Admin: 03/10/18 10:06 Dose: Not Given Sennosides (Senokot) 17.2 mg PO Q12H PRN PRN Reason: Moderate Constipation Sodium Chloride (Ns Flush) 2 ml IV.FLUSH BID [facility] Sodium Chloride (Ns Flush) 2 ml IV.FLUSH PRN PRN PRN Reason: FLUSH AFTER USING IV ACCESS Tamsulosin HCl (Flomax) 0.4 mg PO DAILY [facility] Last Admin: 03/10/18 11:02 Dose: Not Given Terbutaline Sulfate (Brethine Inj) 1 mg SQ UNSCH PRN PRN Reason: For Extravasation <Colleen Gonzlaez - Last Filed: 03/10/18 13:29> Active Medications: Active Medications Acetaminophen (Tylenol) 650 mg PO Q4H PRN PRN Reason: Temp > 100.4 Al Hydroxide/Mg Hydroxide (Milk Of Magnamanda Liq) 30 ml PO Q12H PRN PRN Reason: Mild Constipation Amlodipine Besylate (Norvasc) 10 mg PO DAILY [facility] Last Admin: 03/10/18 11:03 Dose: Not Given Bisacodyl (Dulcolax Supp) 10 mg RECTAL DAILY PRN PRN Reason: SEVERE CONSITIPATION Chlorhexidine Gluconate (Peridex 0.12% Oral Kit) 15 ml OROPHARYNG BID@0800, 2000 [facility] Chlorhexidine Gluconate (Chlorhexidine 2% Cloth) 3 pack TOPICAL DAILY@0400 [facility] Stop: 03/16/18 03:59 Chlorhexidine Gluconate (Chlorhexidine 2% Cloth) 3 pack TOPICAL DAILY@0400 PRN PRN Reason: Extra cloth needed Stop: 03/16/18 03:59 Clonidine HCl (Catapres) 0.1 mg PO Q6H PRN PRN Reason: SBP> OR = 180, DBP> OR = 100 Famotidine (Pepcid) 20 mg PO BID [facility] Flumazenil (Romazecon Inj) 0.2 mg IV.PUSH Q1M PRN PRN Reason: OVERSEDATION Haloperidol Lactate (Haldol Inj) 1 mg IV.PUSH Q15M PRN PRN Reason: for severe agitation Sodium Chloride (Ns Inj) 250 mls @ 15 mls/hr IV.SIG ONCE [facility] Stop: 03/11/18 01:39 Last Admin: 03/10/18 11:03 Dose: 15 mls/hr Pantoprazole Sodium 80 mg/ (Sodium Chloride) 100 mls @ 10 mls/hr IV.CONT Q10H [facility] Calcium Chloride 2 gm/ (Dextrose) 120 mls @ 120 mls/hr IV.SIG ONCE ONE Stop: 03/10/18 13:59 Fentanyl (Fentanyl 10 Mcg/Ml Premix Drip) 2,500 mcg in 250 mls @ 5 mls/hr IV.SIG TITRATE PRN; Protocol PRN Reason: Per Protocol Midazolam HCl (Versed Inj) 50 mg in 50 mls @ 2 mls/hr IV.CONT TITRATE PRN; Protocol PRN Reason: Per Protocol Sodium Chloride (Ns Inj) 250 mls @ 15 mls/hr IV.SIG ONCE [facility] Stop: 03/11/18 04:39 Norepinephrine Bitartrate (Levophed-Dextrose 4 Mg/250 Ml Drip) 4 mg in 250 mls @ 7.5 mls/hr IV.SIG TITRATE PRN; Protocol PRN Reason: Per Protocol Sodium Chloride (Ns Inj) 1,000 mls @ 84 mls/hr IV.CONT .[id number] [facility] Ceftriaxone Sodium 1,000 mg/ (Sodium Chloride) 100 mls @ 200 mls/hr IV.SIG Q24H [facility] Octreotide Acetate 500 mcg/ (Sodium Chloride) 500.5 mls @ 25.02 mls/hr IV.CONT .Q20H1M [facility] Lactulose (Lactulose Liq) 30 ml PO DAILY PRN PRN Reason: SEVERE CONSITIPATION Lorazepam (Ativan) 1 mg PO Q4H PRN PRN Reason: for CIWA 8-10 Lorazepam (Ativan) 2 mg PO Q2H PRN PRN Reason: for CIWA 11-14 Lorazepam (Ativan Inj) 2 mg IV.PUSH Q1H PRN PRN Reason: for CIWA 15-20 Lorazepam (Ativan Inj) 2 mg IV.PUSH Q15M PRN PRN Reason: for CIWA > 20 Lorazepam (Ativan Inj) 2 mg IV.PUSH Q4H PRN PRN Reason: Agitation/sedation Midazolam HCl (Versed Inj) 2 mg IV.PUSH Q1H PRN PRN Reason: SEDATION Ondansetron HCl (Zofran Inj) 4 mg IV.PUSH Q6H PRN PRN Reason: n/v Last Admin: 03/08/18 02:24 Dose: 4 mg Oxycodone HCl (Roxicodone) 5 mg PO Q4H PRN PRN Reason: pain 3-10 Last Admin: 03/07/18 18:15 Dose: 5 mg Senna/Docusate Sodium (Marium-Colace) 1 tab PO BID [facility] Last Admin: 03/10/18 10:06 Dose: Not Given Sennosides (Senokot) 17.2 mg PO Q12H PRN PRN Reason: Moderate Constipation Sodium Chloride (Ns Flush) 2 ml IV.FLUSH BID [facility] Sodium Chloride (Ns Flush) 2 ml IV.FLUSH PRN PRN PRN Reason: FLUSH AFTER USING IV ACCESS Tamsulosin HCl (Flomax) 0.4 mg PO DAILY [facility] Last Admin: 03/10/18 11:02 Dose: Not Given Terbutaline Sulfate (Brethine Inj) 1 mg SQ UNSCH PRN PRN Reason: For Extravasation <Karime Stone - Last Filed: 03/10/18 13:45> Allergies Allergy/AdvReac Type Severity Reaction Status Date / Time No Known Allergies Allergy Verified 03/05/18 15:18 Home Medications Medication Instructions Recorded Confirmed Type alfuzosin 10 mg PO DAILY 03/05/18 03/05/18 History lisinopril 20 mg PO DAILY 03/05/18 03/05/18 History potassium chloride 10 meq PO DAILY 03/05/18 03/05/18 History Exam Vital signs: Vital Signs 03/09/18 15:32 03/09/18 20:00 03/09/18 20:11 Temperature 99.2 F 97.6 F Pulse Rate 95 H 98 H 88 Respiratory Rate 20 18 Blood Pressure 138/68 101/72 Pulse Oximetry 98 96 03/10/18 00:00 03/10/18 04:00 03/10/18 08:17 Temperature 99.7 F H 98.3 F 96.8 F L Pulse Rate 98 H 95 H 68 Respiratory Rate 18 18 17 Blood Pressure 101/58 L 100/59 L 83/54 L Pulse Oximetry 97 97 93 L 03/10/18 09:00 03/10/18 09:08 03/10/18 11:12 Temperature 96.9 F L Pulse Rate Respiratory Rate 18 Blood Pressure Pulse Oximetry 94 L 100 03/10/18 12:15 03/10/18 13:15 Temperature Pulse Rate 85 Respiratory Rate 19 18 Blood Pressure 90/71 L Pulse Oximetry 95 100 Intake & Output 03/09/18 03/10/18 03/10/18 18:59 06:59 18:59 Intake Total 1100 / 1100 3000 / 3000 Output Total 400 / 400 Balance 1100 / 1100 -400 / -400 3000 / 3000 Weight 45.5 kg Intake: IV 260 / 260 3000 / 3000 NS Inj 1,000 ML @ Wide Open IV. 3000 / 3000 SIG BOLUS ONE Rx#:[id number] Sodium Phosphate Inj 30 MMOL In 260 / 260 NS Inj 250 ML @ 40 mls/hr IV. SIG ONCE ONE Rx#:[id number] Oral 840 / 840 Intake (Blood Product) Amt 0 / 0 Rbc As-3 Leukoreduced Unit 0 / 0 [id number] Output: Urine 400 / 400 Other: # Voids 500 Date of Last Bowel Movement 03/09/18 # Bowel Movements 3 1 - Constitutional no acute distress - Routine HEENT Exam Head: Present: normocephalic, atraumatic - Routine Respiratory Exam Present: patient mechanically ventilated - Routine Cardiovascular Exam Present: RRR - Routine Abdominal Exam Present: soft, normoactive bowel sounds, distended - Routine Skin Exam Present: dry, warm <Colleen Gonzalez - Last Filed: 03/10/18 13:29> Vital signs: Vital Signs 03/09/18 15:32 03/09/18 20:00 03/09/18 20:11 Temperature 99.2 F 97.6 F Pulse Rate 95 H 98 H 88 Respiratory Rate 20 18 Blood Pressure 138/68 101/72 Pulse Oximetry 98 96 03/10/18 00:00 03/10/18 04:00 03/10/18 08:17 Temperature 99.7 F H 98.3 F 96.8 F L Pulse Rate 98 H 95 H 68 Respiratory Rate 18 18 17 Blood Pressure 101/58 L 100/59 L 83/54 L Pulse Oximetry 97 97 93 L 03/10/18 09:00 03/10/18 09:08 03/10/18 11:12 Temperature 96.9 F L Pulse Rate Respiratory Rate 18 Blood Pressure Pulse Oximetry 94 L 100 03/10/18 12:15 03/10/18 13:15 Temperature Pulse Rate 85 Respiratory Rate 19 18 Blood Pressure 90/71 L Pulse Oximetry 95 100 Intake & Output 03/09/18 03/10/18 03/10/18 18:59 06:59 18:59 Intake Total 1100 / 1100 3000 / 3000 Output Total 400 / 400 Balance 1100 / 1100 -400 / -400 3000 / 3000 Weight 45.5 kg Intake: IV 260 / 260 3000 / 3000 NS Inj 1,000 ML @ Wide Open IV. 3000 / 3000 SIG BOLUS ONE Rx#:[id number] Sodium Phosphate Inj 30 MMOL In 260 / 260 NS Inj 250 ML @ 40 mls/hr IV. SIG ONCE ONE Rx#:[id number] Oral 840 / 840 Intake (Blood Product) Amt 0 / 0 Rbc As-3 Leukoreduced Unit 0 / 0 [id number] Output: Urine 400 / 400 Other: # Voids 500 Date of Last Bowel Movement 03/09/18 # Bowel Movements 3 1 <Karime Stone A - Last Filed: 03/10/18 13:45> Results - Labs CBC & Chem 7: 03/10/18 08:45 03/10/18 08:45 Labs: Laboratory Results - last 24 hr 03/10/18 03/10/18 03/10/18 05:12 05:12 08:35 CBC w Diff Auto diff final WBC 9.3 RBC 2.39 L Hgb 9.1 L Hct 26.3 L MCV 109.9 H MCH 38.0 H MCHC 34.6 RDW 15.8 Plt Count 196 MPV 8.6 Neut % (Auto) 70.0 Lymph % (Auto) 18.0 [place] % (Auto) 11.3 H Eos % (Auto) 0.4 Baso % (Auto) 0.3 Neut # (Auto) 6.5 Lymph # (Auto) 1.7 [place] # (Auto) 1.1 H Eos # (Auto) 0.0 Baso # (Auto) 0.0 WBC Differential . Differential Comment . PT INR APTT Puncture Site Patient Temperature O2 Saturation ABG pH ABG pCO2 ABG pO2 ABG HCO3 ABG O2 Content ABG Base Excess ABG Methemoglobin Dionte Test VBG pH VBG pCO2 VBG pO2 VBG HCO3 VBG O2 Saturation VBG O2 Content VBG Base Excess VBG Carboxyhemoglobin VBG Methemoglobin Hemoglobin Carboxyhemoglobin O2 Delivery Device Liter Flow Vent Setting Inspired O2 Critical Value Sodium 140 Potassium 4.4 Chloride 106 Carbon Dioxide 24.0 Anion Gap 10 BUN 37 H Creatinine 0.94 Estimated GFR Greater than 89 POC Glucose Random Glucose 93 Calcium 7.9 L Phosphorus 3.5 D Magnesium 1.6 Iron TIBC % Saturation Ferritin Total Bilirubin AST ALT Alkaline Phosphatase Total Protein Albumin Vitamin B12 Folate Blood Type O Positive Antibody Screen Negative MTS Gel Crossmatch See Detail 03/10/18 03/10/18 03/10/18 08:45 08:45 08:45 CBC w Diff WBC RBC Hgb Hct MCV MCH MCHC RDW Plt Count MPV Neut % (Auto) Lymph % (Auto) [place] % (Auto) Eos % (Auto) Baso % (Auto) Neut # (Auto) Lymph # (Auto) [place] # (Auto) Eos # (Auto) Baso # (Auto) WBC Differential Differential Comment PT 11.7 H INR 1.2 APTT 56.4 H Puncture Site Patient Temperature O2 Saturation ABG pH ABG pCO2 ABG pO2 ABG HCO3 ABG O2 Content ABG Base Excess ABG Methemoglobin Dionte Test VBG pH VBG pCO2 VBG pO2 VBG HCO3 VBG O2 Saturation VBG O2 Content VBG Base Excess VBG Carboxyhemoglobin VBG Methemoglobin Hemoglobin Carboxyhemoglobin O2 Delivery Device Liter Flow Vent Setting Inspired O2 Critical Value Sodium 139 Potassium 4.5 Chloride 107 Carbon Dioxide 22.1 Anion Gap 10 BUN 40 H Creatinine 1.10 Estimated GFR 80 L POC Glucose Random Glucose 108 H Calcium 7.9 L Phosphorus Magnesium Iron 33 L TIBC 162 L % Saturation 20.3 Ferritin 431 H Total Bilirubin 0.2 AST 14 L ALT 13 Alkaline Phosphatase 48 Total Protein 4.5 L D Albumin 2.0 L Vitamin B12 250 Folate 3.6 Blood Type Antibody Screen MTS Gel Crossmatch 03/10/18 03/10/18 03/10/18 08:45 08:56 10:36 CBC w Diff Auto diff final WBC 9.8 RBC 2.17 L Hgb 8.2 L Hct 23.7 L MCV 109.6 H MCH 37.8 H MCHC 34.5 RDW 15.9 Plt Count 186 MPV 7.9 Neut % (Auto) 70.2 H Lymph % (Auto) 17.7 [place] % (Auto) 11.2 H Eos % (Auto) 0.3 Baso % (Auto) 0.6 Neut # (Auto) 6.9 Lymph # (Auto) 1.7 [place] # (Auto) 1.1 H Eos # (Auto) 0.0 Baso # (Auto) 0.1 WBC Differential . Differential Comment . PT INR APTT Puncture Site Right brachial Patient Temperature 98.6 O2 Saturation 98 ABG pH 7.49 H ABG pCO2 26 L ABG pO2 421 H ABG HCO3 19 L ABG O2 Content 10.0 L ABG Base Excess -3.5 L ABG Methemoglobin 0.6 Dionte Test Present VBG pH VBG pCO2 VBG pO2 VBG HCO3 VBG O2 Saturation VBG O2 Content VBG Base Excess VBG Carboxyhemoglobin VBG Methemoglobin Hemoglobin 6.4 L* Carboxyhemoglobin 1.2 O2 Delivery Device Nrb Liter Flow 15.00 Vent Setting Inspired O2 100 Critical Value Yes Sodium Potassium Chloride Carbon Dioxide Anion Gap BUN Creatinine Estimated GFR POC Glucose 137 H Random Glucose Calcium Phosphorus Magnesium Iron TIBC % Saturation Ferritin Total Bilirubin AST ALT Alkaline Phosphatase Total Protein Albumin Vitamin B12 Folate Blood Type Antibody Screen MTS Gel Crossmatch 03/10/18 03/10/18 03/10/18 10:36 11:23 11:39 CBC w Diff WBC RBC Hgb Hct MCV MCH MCHC RDW Plt Count MPV Neut % (Auto) Lymph % (Auto) [place] % (Auto) Eos % (Auto) Baso % (Auto) Neut # (Auto) Lymph # (Auto) [place] # (Auto) Eos # (Auto) Baso # (Auto) WBC Differential Differential Comment PT INR APTT Puncture Site Right brachial Art line Patient Temperature 98.6 98.6 O2 Saturation 99 99 ABG pH 7.31 L 7.36 L ABG pCO2 23 L* 24 L* ABG pO2 255 H 546 H ABG HCO3 11 L* 13 L* ABG O2 Content 6.4 L 12.5 ABG Base Excess -13.8 L -11.1 L ABG Methemoglobin 0.4 0.4 Dionte Test VBG pH VBG pCO2 VBG pO2 VBG HCO3 VBG O2 Saturation VBG O2 Content VBG Base Excess VBG Carboxyhemoglobin VBG Methemoglobin Hemoglobin 4.1 L* 8.0 L Carboxyhemoglobin 0.9 1.0 O2 Delivery Device Nrb Ventilator Liter Flow Vent Setting 18/600/peep 5 Inspired O2 100 100 Critical Value Yes Yes Sodium Potassium Chloride Carbon Dioxide Anion Gap BUN Creatinine Estimated GFR POC Glucose Random Glucose Calcium Phosphorus Magnesium Iron TIBC % Saturation Ferritin Total Bilirubin AST ALT Alkaline Phosphatase Total Protein Albumin Vitamin B12 Folate Blood Type Antibody Screen MTS Gel Crossmatch See Detail 03/10/18 11:55 CBC w Diff WBC RBC Hgb Hct MCV MCH MCHC RDW Plt Count MPV Neut % (Auto) Lymph % (Auto) [place] % (Auto) Eos % (Auto) Baso % (Auto) Neut # (Auto) Lymph # (Auto) [place] # (Auto) Eos # (Auto) Baso # (Auto) WBC Differential Differential Comment PT INR APTT Puncture Site Central line Patient Temperature 98.6 O2 Saturation ABG pH ABG pCO2 ABG pO2 ABG HCO3 ABG O2 Content ABG Base Excess ABG Methemoglobin Dionte Test VBG pH 7.33 L VBG pCO2 32 L VBG pO2 26 L* VBG HCO3 16 L VBG O2 Saturation 52 L VBG O2 Content 6.3 L VBG Base Excess -8.5 L VBG Carboxyhemoglobin 1.0 VBG Methemoglobin 0.7 Hemoglobin 8.6 L Carboxyhemoglobin O2 Delivery Device Ventilator Liter Flow Vent Setting 18/600/peep 5 Inspired O2 50 Critical Value Yes Sodium Potassium Chloride Carbon Dioxide Anion Gap BUN Creatinine Estimated GFR POC Glucose Random Glucose Calcium Phosphorus Magnesium Iron TIBC % Saturation Ferritin Total Bilirubin AST ALT Alkaline Phosphatase Total Protein Albumin Vitamin B12 Folate Blood Type Antibody Screen MTS Gel Crossmatch - Imaging Impressions Chest X-Ray 03/10/18 00:00 CONCLUSION: Consolidating airspace disease in the left lower lobe Chronic lung changes Endotracheal tube in good position. Chest X-Ray 03/10/18 11:34 CONCLUSION: Status post placement of right subclavian central venous catheter which is in good position. No evidence of pneumothorax. COPD Left basilar airspace disease; unchanged <Colleen Gonzalez - Last Filed: 03/10/18 13:29> - Labs CBC & Chem 7: 03/10/18 08:45 03/10/18 08:45 Labs: Laboratory Results - last 24 hr 03/10/18 03/10/18 03/10/18 05:12 05:12 08:35 CBC w Diff Auto diff final WBC 9.3 RBC 2.39 L Hgb 9.1 L Hct 26.3 L MCV 109.9 H MCH 38.0 H MCHC 34.6 RDW 15.8 Plt Count 196 MPV 8.6 Neut % (Auto) 70.0 Lymph % (Auto) 18.0 [place] % (Auto) 11.3 H Eos % (Auto) 0.4 Baso % (Auto) 0.3 Neut # (Auto) 6.5 Lymph # (Auto) 1.7 [place] # (Auto) 1.1 H Eos # (Auto) 0.0 Baso # (Auto) 0.0 WBC Differential . Differential Comment . PT INR APTT Puncture Site Patient Temperature O2 Saturation ABG pH ABG pCO2 ABG pO2 ABG HCO3 ABG O2 Content ABG Base Excess ABG Methemoglobin Dionte Test VBG pH VBG pCO2 VBG pO2 VBG HCO3 VBG O2 Saturation VBG O2 Content VBG Base Excess VBG Carboxyhemoglobin VBG Methemoglobin Hemoglobin Carboxyhemoglobin O2 Delivery Device Liter Flow Vent Setting Inspired O2 Critical Value Sodium 140 Potassium 4.4 Chloride 106 Carbon Dioxide 24.0 Anion Gap 10 BUN 37 H Creatinine 0.94 Estimated GFR Greater than 89 POC Glucose Random Glucose 93 Calcium 7.9 L Phosphorus 3.5 D Magnesium 1.6 Iron TIBC % Saturation Ferritin Total Bilirubin AST ALT Alkaline Phosphatase Total Protein Albumin Vitamin B12 Folate Blood Type O Positive Antibody Screen Negative MTS Gel Crossmatch See Detail 03/10/18 03/10/18 03/10/18 08:45 08:45 08:45 CBC w Diff WBC RBC Hgb Hct MCV MCH MCHC RDW Plt Count MPV Neut % (Auto) Lymph % (Auto) [place] % (Auto) Eos % (Auto) Baso % (Auto) Neut # (Auto) Lymph # (Auto) [place] # (Auto) Eos # (Auto) Baso # (Auto) WBC Differential Differential Comment PT 11.7 H INR 1.2 APTT 56.4 H Puncture Site Patient Temperature O2 Saturation ABG pH ABG pCO2 ABG pO2 ABG HCO3 ABG O2 Content ABG Base Excess ABG Methemoglobin Dionte Test VBG pH VBG pCO2 VBG pO2 VBG HCO3 VBG O2 Saturation VBG O2 Content VBG Base Excess VBG Carboxyhemoglobin VBG Methemoglobin Hemoglobin Carboxyhemoglobin O2 Delivery Device Liter Flow Vent Setting Inspired O2 Critical Value Sodium 139 Potassium 4.5 Chloride 107 Carbon Dioxide 22.1 Anion Gap 10 BUN 40 H Creatinine 1.10 Estimated GFR 80 L POC Glucose Random Glucose 108 H Calcium 7.9 L Phosphorus Magnesium Iron 33 L TIBC 162 L % Saturation 20.3 Ferritin 431 H Total Bilirubin 0.2 AST 14 L ALT 13 Alkaline Phosphatase 48 Total Protein 4.5 L D Albumin 2.0 L Vitamin B12 250 Folate 3.6 Blood Type Antibody Screen [facility] Gel Crossmatch 03/10/18 03/10/18 03/10/18 08:45 08:56 10:36 CBC w Diff Auto diff final WBC 9.8 RBC 2.17 L Hgb 8.2 L Hct 23.7 L MCV 109.6 H MCH 37.8 H MCHC 34.5 RDW 15.9 Plt Count 186 MPV 7.9 Neut % (Auto) 70.2 H Lymph % (Auto) 17.7 [place] % (Auto) 11.2 H Eos % (Auto) 0.3 Baso % (Auto) 0.6 Neut # (Auto) 6.9 Lymph # (Auto) 1.7 [place] # (Auto) 1.1 H Eos # (Auto) 0.0 Baso # (Auto) 0.1 WBC Differential . Differential Comment . PT INR APTT Puncture Site Right brachial Patient Temperature 98.6 O2 Saturation 98 ABG pH 7.49 H ABG pCO2 26 L ABG pO2 421 H ABG HCO3 19 L ABG O2 Content 10.0 L ABG Base Excess -3.5 L ABG Methemoglobin 0.6 Dionte Test Present VBG pH VBG pCO2 VBG pO2 VBG HCO3 VBG O2 Saturation VBG O2 Content VBG Base Excess VBG Carboxyhemoglobin VBG Methemoglobin Hemoglobin 6.4 L* Carboxyhemoglobin 1.2 O2 Delivery Device Nrb Liter Flow 15.00 Vent Setting Inspired O2 100 Critical Value Yes Sodium Potassium Chloride Carbon Dioxide Anion Gap BUN Creatinine Estimated GFR POC Glucose 137 H Random Glucose Calcium Phosphorus Magnesium Iron TIBC % Saturation Ferritin Total Bilirubin AST ALT Alkaline Phosphatase Total Protein Albumin Vitamin B12 Folate Blood Type Antibody Screen MTS Gel Crossmatch 03/10/18 03/10/18 03/10/18 10:36 11:23 11:39 CBC w Diff WBC RBC Hgb Hct MCV MCH MCHC RDW Plt Count MPV Neut % (Auto) Lymph % (Auto) [place] % (Auto) Eos % (Auto) Baso % (Auto) Neut # (Auto) Lymph # (Auto) [place] # (Auto) Eos # (Auto) Baso # (Auto) WBC Differential Differential Comment PT INR APTT Puncture Site Right brachial Art line Patient Temperature 98.6 98.6 O2 Saturation 99 99 ABG pH 7.31 L 7.36 L ABG pCO2 23 L* 24 L* ABG pO2 255 H 546 H ABG HCO3 11 L* 13 L* ABG O2 Content 6.4 L 12.5 ABG Base Excess -13.8 L -11.1 L ABG Methemoglobin 0.4 0.4 Dionte Test VBG pH VBG pCO2 VBG pO2 VBG HCO3 VBG O2 Saturation VBG O2 Content VBG Base Excess VBG Carboxyhemoglobin VBG Methemoglobin Hemoglobin 4.1 L* 8.0 L Carboxyhemoglobin 0.9 1.0 O2 Delivery Device Nrb Ventilator Liter Flow Vent Setting 18/600/peep 5 Inspired O2 100 100 Critical Value Yes Yes Sodium Potassium Chloride Carbon Dioxide Anion Gap BUN Creatinine Estimated GFR POC Glucose Random Glucose Calcium Phosphorus Magnesium Iron TIBC % Saturation Ferritin Total Bilirubin AST ALT Alkaline Phosphatase Total Protein Albumin Vitamin B12 Folate Blood Type Antibody Screen MTS Gel Crossmatch See Detail 03/10/18 11:55 CBC w Diff WBC RBC Hgb Hct MCV MCH MCHC RDW Plt Count MPV Neut % (Auto) Lymph % (Auto) [place] % (Auto) Eos % (Auto) Baso % (Auto) Neut # (Auto) Lymph # (Auto) [place] # (Auto) Eos # (Auto) Baso # (Auto) WBC Differential Differential Comment PT INR APTT Puncture Site Central line Patient Temperature 98.6 O2 Saturation ABG pH ABG pCO2 ABG pO2 ABG HCO3 ABG O2 Content ABG Base Excess ABG Methemoglobin Dionte Test VBG pH 7.33 L VBG pCO2 32 L VBG pO2 26 L* VBG HCO3 16 L VBG O2 Saturation 52 L VBG O2 Content 6.3 L VBG Base Excess -8.5 L VBG Carboxyhemoglobin 1.0 VBG Methemoglobin 0.7 Hemoglobin 8.6 L Carboxyhemoglobin O2 Delivery Device Ventilator Liter Flow Vent Setting 18/600/peep 5 Inspired O2 50 Critical Value Yes Sodium Potassium Chloride Carbon Dioxide Anion Gap BUN Creatinine Estimated GFR POC Glucose Random Glucose Calcium Phosphorus Magnesium Iron TIBC % Saturation Ferritin Total Bilirubin AST ALT Alkaline Phosphatase Total Protein Albumin Vitamin B12 Folate Blood Type Antibody Screen MTS Gel Crossmatch - Imaging Impressions Chest X-Ray 03/10/18 00:00 CONCLUSION: Consolidating airspace disease in the left lower lobe Chronic lung changes Endotracheal tube in good position. Chest X-Ray 03/10/18 11:34 CONCLUSION: Status post placement of right subclavian central venous catheter which is in good position. No evidence of pneumothorax. COPD Left basilar airspace disease; unchanged <Karime Stone - Last Filed: 03/10/18 13:45> Assessment and Plan - Plan Assessment: - GIB- began this morning- maroon and BRB colored stools with large blood clots reported, now continuous. No reports of emesis or coffee ground/BRB secretions prior to intubation. Transfer to [facility] from [place] for emergent EGD and colonoscopy. Pt has been transfused 4 units of PRBCs and at this time is hemodynamically stable. Unable to obtain further history from patient because he is sedated and intubated. Unsure of previous EGD or colonoscopy. It is noted in pts records that he admitted to drinking a bottle of wine daily. - Abdominal pain, LLQ- noted in chart on admission. CT with no etiology for pain or acute findings - SHEEBA on admission, improved with IV fluids Discussed with Dr. Zapata, [employer] consultant Discussed with nurseKimmie Plan: EGD/colonoscopy bedside today Obtain consent Has been NPO Intubated and sedated Monitor BP Currently not on pressors Serial H/H Octreotide gtt Protonix gtt Bleeding scan after GI procedures Further recommendations to follow Pt has been seen and examined by myself and Dr. Stone and this note is written on his behalf <Colleen Gonzalez - Last Filed: 03/10/18 13:29> - Attending Attestation Seen with gopal Macias as above, will obtain consent for EGD and Colonoscopy now. Further recommendations to follow. Thank you for the consult. <Karime Stone - Last Filed: 03/10/18 13:45>
[2018-03-10] MEDS: Sod Chloride 0.9% Inj 1,000 ML IV.CONT SCH (15:12)
[2018-03-10] MEDS: Pantoprazole Inj 80 MG in Sodium Chlor 0.9% Inj 100 ML IV.CONT SCH ×2 (15:23→23:29)
[2018-03-10] MEDS: Oral Hygiene Kit OROPHARYNG SCH ×2 (15:23→17:49)
[2018-03-10 15:43] LABS: Hemoglobin 15.2 gm/dL (13.0-17.0)
[2018-03-10 20:03] LABS: Hematocrit 38.7 % (39.0-51.0); Hemoglobin 12.8 gm/dL (13.0-17.0)
[2018-03-10] MEDS: Chlorhexidine 0.12% Oral Kit 15 ML UDC OROPHARYNG SCH (20:46)
[2018-03-10] MEDS ORDERED: Senna/Docusate Sodium 8.6/50 MG Tablet PO SCH (21:00)
[2018-03-10] MEDS ORDERED: Famotidine 20 MG Tablet PO SCH (21:00)
[2018-03-10] MEDS: Famotidine PF Inj 20 MG/2 ML Vial IV.PUSH SCH (21:12)
[2018-03-10] MEDS: Multivitamin Inj 10 ML, Thiamine Inj 100 MG, Folic Acid Inj 1 MG in Sodium Chlor 0.9% I... IV.SIG SCH (21:27)
[2018-03-11] MEDS: Oral Hygiene Kit OROPHARYNG SCH ×4 (01:42→17:25)
[2018-03-11] MEDS: Sod Chloride 0.9% Inj 1,000 ML IV.CONT SCH (02:51)
[2018-03-11 03:47] LABS: Baso % (Auto) 0.5 % (0.0-2.0); Eos # (Auto) 0.1 th/mm3 (0.0-0.4); Eos % (Auto) 1.1 % (0.0-4.0); Hematocrit 34.6 % (39.0-51.0); Hemoglobin 11.6 gm/dL (13.0-17.0); Lymph # (Auto) 1.3 th/mm3 (1.0-4.8); Lymph % (Auto) 15.6 % (9.0-44.0); Mean Corpuscular HGB Conc 33.6 % (32.0-36.0); Mean Corpuscular Hemoglobin 31.3 pg (27.0-34.0); Mean Corpuscular Volume 93.1 fL (80.0-100.0); Mean Platelet Volume 8.7 fL (7.0-11.0); Mono # (Auto) 0.9 th/mm3 (0.0-0.9); Mono % (Auto) 10.8 % (0.0-8.0); Neut # (Auto) 5.9 th/mm3 (1.8-7.7); Platelet Count 85 th/mm3 (150-450); Red Blood Count 3.71 mil/mm3 (4.50-5.90); Red Cell Distribution Width 17.6 % (11.6-17.2); White Blood Count 8.1 th/mm3 (4.0-11.0)
[2018-03-11] MEDS ORDERED: Chlorhexidine Gluconate 2% 1 Pack (2 Cloths) TOPICAL PRN (04:00)
[2018-03-11 04:09] LABS: Anion Gap 11 meq/L (5-15); Blood Urea Nitrogen 35 mg/dL (7-18); Calcium 7.4 mg/dL (8.5-10.1); Carbon Dioxide 17.1 meq/L (21.0-32.0); Chloride 120 meq/L (98-107); Glomerular Filtration Rate Greater Than 89 mL/min (>89); Glucose,Random 68 mg/dL (74-106); Sodium 148 meq/L (136-145)
[2018-03-11 04:25] LABS: Eosinophils 1 % (0-4); Lymphocytes 8 % (9-44); Metamyelocytes 1 % (0-1); Monocytes 7 % (0-8)
[2018-03-11 04:27] LABS: Burr Cells 1+; Platelet Morphology Normal (Normal)
[2018-03-11 04:38] LABS: Total Protein 3.9 g/dL (6.4-8.2)
[2018-03-11] MEDS: Chlorhexidine Gluconate 2% 1 Pack (2 Cloths) TOPICAL SCH (06:32)
[2018-03-11] MEDS: Famotidine PF Inj 20 MG/2 ML Vial IV.PUSH SCH ×2 (08:17→20:54)
[2018-03-11] MEDS: Chlorhexidine 0.12% Oral Kit 15 ML UDC OROPHARYNG SCH ×2 (08:17→20:54)
[2018-03-11] MEDS: amLODIPine 10 MG Tablet PO SCH (08:18)
[2018-03-11] MEDS: Senna/Docusate Sodium 8.6/50 MG Tablet PO SCH ×2 (08:19→20:55)
--- NOTE | 2018-03-11 09:21 | P.PNGI ---
Subjective Interval history: Pt remains sedated and intubated. According to RN pt has not had a BM overnight. No NG/OG. <Colleen Gonzalez - Last Filed: 03/11/18 09:16> Physical Exam Vital signs: Vital Signs 03/10/18 11:12 03/10/18 12:15 03/10/18 13:15 Temperature Pulse Rate 85 Respiratory Rate 18 19 18 Blood Pressure 90/71 L Pulse Oximetry 100 95 100 03/10/18 15:35 03/10/18 15:53 03/10/18 15:54 Temperature 98.2 F Pulse Rate 84 84 Respiratory Rate 18 18 18 Blood Pressure 138/92 H Pulse Oximetry 100 100 100 03/10/18 15:57 03/10/18 16:00 03/10/18 16:03 Temperature Pulse Rate 84 85 86 Respiratory Rate 18 18 18 Blood Pressure 139/84 138/79 132/84 Pulse Oximetry 100 100 100 03/10/18 16:06 03/10/18 16:07 03/10/18 16:15 Temperature Pulse Rate 87 88 86 Respiratory Rate 18 26 H 18 Blood Pressure 139/80 137/78 168/86 H Pulse Oximetry 100 100 100 03/10/18 20:00 03/10/18 20:22 03/11/18 00:00 Temperature 98.1 F 97.8 F Pulse Rate 84 91 H Respiratory Rate 16 21 16 Blood Pressure 111/62 114/66 Pulse Oximetry 100 100 100 03/11/18 00:04 03/11/18 04:00 03/11/18 04:26 Temperature 98 F Pulse Rate 80 Respiratory Rate 18 18 19 Blood Pressure 121/67 Pulse Oximetry 100 100 100 03/11/18 08:00 03/11/18 08:44 Temperature 97.7 F Pulse Rate 78 Respiratory Rate 18 Blood Pressure Pulse Oximetry 100 Intake & Output 03/10/18 03/11/18 03/11/18 18:59 06:59 18:59 Intake Total 3200 / 3200 1611.2 / 1611.2 Output Total 500 / 500 375 / 375 Balance 2700 / 2700 1236.2 / 1236.2 Weight 51.5 kg Intake: IV 3000 / 3000 1611.2 / 1611.2 Protonix Inj 80 MG In NS Inj 100 / 100 100 ML @ 10 mls/hr IV.CONT Q10H [facility] Rx#:[id number] NS Inj 1,000 ML @ 84 mls/hr IV. 1000 / 1000 CONT .[id number] [facility] Rx#: [id number] MVI-12 Inj 10 ML Thiamine Inj 511.2 / 511.2 100 MG Folvite Inj 1 MG In NS Inj 500 ML @ 125 mls/hr IV.SIG Q24H [facility] Rx#:[id number] NS Inj 1,000 ML @ Wide Open IV. 3000 / 3000 SIG BOLUS ONE Rx#:[id number] Oral 0 / 0 Anesthesia Amount 200 / 200 Intake (Blood Product) Amt 0 / 0 Rbc As-3 Leukoreduced Unit 0 / 0 [id number] Output: Urine Amount (Catheter) 500 / 500 375 / 375 Condom 500 / 500 375 / 375 Other: Date of Last Bowel Movement 03/10/18 03/10/18 03/10/18 # Bowel Movements 2 # Incontinent Bowel Movements 2 - Constitutional no acute distress - Routine HEENT Exam Head: Present: normocephalic, atraumatic - Routine Respiratory Exam Present: patient mechanically ventilated - Routine Cardiovascular Exam Present: RRR - Routine Abdominal Exam Present: soft, normoactive bowel sounds, distended - Routine Skin Exam Present: dry, warm - Urinary Catheter Management Indwelling Urethral Catheter Cath placed during this visit: yes, but has since been removed by the nurse Reason for continuing: Decision to DC catheter Insertion date: 03/05/18 Insertion time: 16:40 Removal date: 03/06/18 Removal time: 10:25 Condom Cath placed during this visit: no Reason for continuing: Not indwelling catheter <Colleen Gonzalez - Last Filed: 03/11/18 09:16> Vital signs: Vital Signs 03/10/18 12:15 03/10/18 13:15 03/10/18 15:35 Temperature Pulse Rate 85 Respiratory Rate 19 18 18 Blood Pressure 90/71 L Pulse Oximetry 95 100 100 03/10/18 15:53 03/10/18 15:54 03/10/18 15:57 Temperature 98.2 F Pulse Rate 84 84 84 Respiratory Rate 18 18 18 Blood Pressure 138/92 H 139/84 Pulse Oximetry 100 100 100 03/10/18 16:00 03/10/18 16:03 03/10/18 16:06 Temperature Pulse Rate 85 86 87 Respiratory Rate 18 18 18 Blood Pressure 138/79 132/84 139/80 Pulse Oximetry 100 100 100 03/10/18 16:07 03/10/18 16:15 03/10/18 20:00 Temperature 98.1 F Pulse Rate 88 86 84 Respiratory Rate 26 H 18 16 Blood Pressure 137/78 168/86 H 111/62 Pulse Oximetry 100 100 100 03/10/18 20:22 03/11/18 00:00 03/11/18 00:04 Temperature 97.8 F Pulse Rate 91 H Respiratory Rate 21 16 18 Blood Pressure 114/66 Pulse Oximetry 100 100 100 03/11/18 04:00 03/11/18 04:26 03/11/18 07:00 Temperature 98 F 97.7 F Pulse Rate 80 80 Respiratory Rate 18 19 18 Blood Pressure 121/67 120/62 Pulse Oximetry 100 100 100 03/11/18 07:15 03/11/18 07:30 03/11/18 08:00 Temperature 97.7 F Pulse Rate 78 78 84 Respiratory Rate 18 18 18 Blood Pressure 104/66 110/71 109/64 Pulse Oximetry 100 100 100 03/11/18 08:15 03/11/18 08:30 03/11/18 08:44 Temperature Pulse Rate 82 83 Respiratory Rate 18 18 18 Blood Pressure 109/68 103/63 Pulse Oximetry 100 100 100 03/11/18 08:45 03/11/18 09:00 03/11/18 09:16 Temperature Pulse Rate 80 78 77 Respiratory Rate 18 18 18 Blood Pressure 111/65 117/68 108/67 Pulse Oximetry 100 100 100 03/11/18 10:42 Temperature Pulse Rate Respiratory Rate 19 Blood Pressure Pulse Oximetry 100 Intake & Output 03/10/18 03/11/18 03/11/18 18:59 06:59 18:59 Intake Total 3200 / 3200 1611.2 / 1611.2 100 / 100 Output Total 500 / 500 375 / 375 Balance 2700 / 2700 1236.2 / 1236.2 100 / 100 Weight 51.5 kg Intake: IV 3000 / 3000 1611.2 / 1611.2 100 / 100 Protonix Inj 80 MG In NS Inj 100 / 100 100 / 100 100 ML @ 10 mls/hr IV.CONT Q10H [facility] Rx#:[id number] NS Inj 1,000 ML @ 84 mls/hr IV. 1000 / 1000 CONT .[id number] [facility] Rx#: [id number] MVI-12 Inj 10 ML Thiamine Inj 511.2 / 511.2 100 MG Folvite Inj 1 MG In NS Inj 500 ML @ 125 mls/hr IV.SIG Q24H [facility] Rx#:[id number] NS Inj 1,000 ML @ Wide Open IV. 3000 / 3000 SIG BOLUS ONE Rx#:[id number] Oral 0 / 0 Anesthesia Amount 200 / 200 Intake (Blood Product) Amt 0 / 0 Rbc As-3 Leukoreduced Unit 0 / 0 [id number] Output: Urine Amount (Catheter) 500 / 500 375 / 375 Condom 500 / 500 375 / 375 Other: Date of Last Bowel Movement 03/10/18 03/10/18 03/10/18 # Bowel Movements 2 # Incontinent Bowel Movements 2 - Urinary Catheter Management Indwelling Urethral Catheter Cath placed during this visit: no Condom Cath placed during this visit: no <Karime Stone A - Last Filed: 03/11/18 14:45> Results - Labs CBC & Chem 7: 03/11/18 02:40 03/11/18 02:40 Laboratory Results - last 24 hr 03/10/18 03/10/18 03/10/18 08:35 08:45 10:36 WBC RBC Hgb Hct MCV MCH MCHC RDW Plt Count MPV Prelim Diff (Auto) Neut % (Auto) Lymph % (Auto) [place] % (Auto) Eos % (Auto) Baso % (Auto) Neut # (Auto) Lymph # (Auto) [place] # (Auto) Eos # (Auto) Baso # (Auto) WBC Differential Seg Neuts % (Manual) Band Neuts % (Manual) Lymphocytes % (Manual) Monocytes % (Manual) Eosinophils % (Manual) Metamyelocytes % (Man) Abs Neuts (Manual) Differential Comment Platelet Estimate Platelet Morphology [place] Cells Puncture Site Patient Temperature O2 Saturation ABG pH ABG pCO2 ABG pO2 ABG HCO3 ABG O2 Content ABG Base Excess ABG Methemoglobin VBG pH VBG pCO2 VBG pO2 VBG HCO3 VBG O2 Saturation VBG O2 Content VBG Base Excess VBG Carboxyhemoglobin VBG Methemoglobin Hemoglobin Carboxyhemoglobin O2 Delivery Device Vent Setting Inspired O2 Critical Value Sodium Potassium Chloride Carbon Dioxide Anion Gap BUN Creatinine Estimated GFR POC Glucose 137 H Random Glucose Calcium Prot Corrected Calcium Iron 33 L TIBC 162 L % Saturation 20.3 Ferritin 431 H Total Protein Vitamin B12 250 Folate 3.6 Nasal Screen MRSA (PCR) Blood Type O Positive Antibody Screen Negative MTS Gel Crossmatch See Detail 03/10/18 03/10/18 03/10/18 10:36 11:23 11:39 WBC RBC Hgb Hct MCV MCH MCHC RDW Plt Count MPV Prelim Diff (Auto) Neut % (Auto) Lymph % (Auto) [place] % (Auto) Eos % (Auto) Baso % (Auto) Neut # (Auto) Lymph # (Auto) [place] # (Auto) Eos # (Auto) Baso # (Auto) WBC Differential Seg Neuts % (Manual) Band Neuts % (Manual) Lymphocytes % (Manual) Monocytes % (Manual) Eosinophils % (Manual) Metamyelocytes % (Man) Abs Neuts (Manual) Differential Comment Platelet Estimate Platelet Morphology [place] Cells Puncture Site Right brachial Art line Patient Temperature 98.6 98.6 O2 Saturation 99 99 ABG pH 7.31 L 7.36 L ABG pCO2 23 L* 24 L* ABG pO2 255 H 546 H ABG HCO3 11 L* 13 L* ABG O2 Content 6.4 L 12.5 ABG Base Excess -13.8 L -11.1 L ABG Methemoglobin 0.4 0.4 VBG pH VBG pCO2 VBG pO2 VBG HCO3 VBG O2 Saturation VBG O2 Content VBG Base Excess VBG Carboxyhemoglobin VBG Methemoglobin Hemoglobin 4.1 L* 8.0 L Carboxyhemoglobin 0.9 1.0 O2 Delivery Device Nrb Ventilator Vent Setting 18/600/peep 5 Inspired O2 100 100 Critical Value Yes Yes Sodium Potassium Chloride Carbon Dioxide Anion Gap BUN Creatinine Estimated GFR POC Glucose Random Glucose Calcium Prot Corrected Calcium Iron TIBC % Saturation Ferritin Total Protein Vitamin B12 Folate Nasal Screen MRSA (PCR) Blood Type Antibody Screen MTS Gel Crossmatch See Detail 03/10/18 03/10/18 03/10/18 11:55 13:30 15:32 WBC RBC Hgb 15.2 D Hct 45.0 MCV MCH MCHC RDW Plt Count MPV Prelim Diff (Auto) Neut % (Auto) Lymph % (Auto) [place] % (Auto) Eos % (Auto) Baso % (Auto) Neut # (Auto) Lymph # (Auto) [place] # (Auto) Eos # (Auto) Baso # (Auto) WBC Differential Seg Neuts % (Manual) Band Neuts % (Manual) Lymphocytes % (Manual) Monocytes % (Manual) Eosinophils % (Manual) Metamyelocytes % (Man) Abs Neuts (Manual) Differential Comment Platelet Estimate Platelet Morphology [place] Cells Puncture Site Central line Patient Temperature 98.6 O2 Saturation ABG pH ABG pCO2 ABG pO2 ABG HCO3 ABG O2 Content ABG Base Excess ABG Methemoglobin VBG pH 7.33 L VBG pCO2 32 L VBG pO2 26 L* VBG HCO3 16 L VBG O2 Saturation 52 L VBG O2 Content 6.3 L VBG Base Excess -8.5 L VBG Carboxyhemoglobin 1.0 VBG Methemoglobin 0.7 Hemoglobin 8.6 L Carboxyhemoglobin O2 Delivery Device Ventilator Vent Setting 18/600/peep 5 Inspired O2 50 Critical Value Yes Sodium Potassium Chloride Carbon Dioxide Anion Gap BUN Creatinine Estimated GFR POC Glucose Random Glucose Calcium Prot Corrected Calcium Iron TIBC % Saturation Ferritin Total Protein Vitamin B12 Folate Nasal Screen MRSA (PCR) Not detected Blood Type Antibody Screen MTS Gel Crossmatch 03/10/18 03/11/18 03/11/18 19:54 02:40 02:40 WBC 8.1 RBC 3.71 L Hgb 12.8 L D 11.6 L Hct 38.7 L 34.6 L MCV 93.1 D MCH 31.3 MCHC 33.6 RDW 17.6 H Plt Count 85 L D MPV 8.7 Prelim Diff (Auto) Slide review pending Neut % (Auto) 72.0 H Lymph % (Auto) 15.6 [place] % (Auto) 10.8 H Eos % (Auto) 1.1 Baso % (Auto) 0.5 Neut # (Auto) 5.9 Lymph # (Auto) 1.3 [place] # (Auto) 0.9 Eos # (Auto) 0.1 Baso # (Auto) 0.0 WBC Differential Manual diff final Seg Neuts % (Manual) 74 H Band Neuts % (Manual) 9 H Lymphocytes % (Manual) 8 L Monocytes % (Manual) 7 Eosinophils % (Manual) 1 Metamyelocytes % (Man) 1 Abs Neuts (Manual) 6.8 Differential Comment . Platelet Estimate Low L Platelet Morphology Normal [place] Cells 1+ H Puncture Site Patient Temperature O2 Saturation ABG pH ABG pCO2 ABG pO2 ABG HCO3 ABG O2 Content ABG Base Excess ABG Methemoglobin VBG pH VBG pCO2 VBG pO2 VBG HCO3 VBG O2 Saturation VBG O2 Content VBG Base Excess VBG Carboxyhemoglobin VBG Methemoglobin Hemoglobin Carboxyhemoglobin O2 Delivery Device Vent Setting Inspired O2 Critical Value Sodium 148 H Potassium 4.0 Chloride 120 H D Carbon Dioxide 17.1 L Anion Gap 11 BUN 35 H Creatinine 0.74 Estimated GFR Greater than 89 POC Glucose Random Glucose 68 L Calcium 7.4 L* Prot Corrected Calcium 9.3 Iron TIBC % Saturation Ferritin Total Protein 3.9 L D Vitamin B12 Folate Nasal Screen MRSA (PCR) Blood Type Antibody Screen MTS Gel Crossmatch Microbiology 03/10/18 09:45 Stool Stool Occult Blood (MALIKA) - Final Hemoccult positive - Imaging Impressions Chest X-Ray 03/10/18 00:00 CONCLUSION: Consolidating airspace disease in the left lower lobe Chronic lung changes Endotracheal tube in good position. Chest X-Ray 03/10/18 11:34 CONCLUSION: Status post placement of right subclavian central venous catheter which is in good position. No evidence of pneumothorax. COPD Left basilar airspace disease; unchanged <Colleen Gonzalez - Last Filed: 03/11/18 09:16> - Labs CBC & Chem 7: 03/11/18 02:40 03/11/18 02:40 Laboratory Results - last 24 hr 03/10/18 03/10/18 03/10/18 08:35 08:45 10:36 WBC RBC Hgb Hct MCV MCH MCHC RDW Plt Count MPV Prelim Diff (Auto) Neut % (Auto) Lymph % (Auto) [place] % (Auto) Eos % (Auto) Baso % (Auto) Neut # (Auto) Lymph # (Auto) [place] # (Auto) Eos # (Auto) Baso # (Auto) WBC Differential Seg Neuts % (Manual) Band Neuts % (Manual) Lymphocytes % (Manual) Monocytes % (Manual) Eosinophils % (Manual) Metamyelocytes % (Man) Abs Neuts (Manual) Differential Comment Platelet Estimate Platelet Morphology [place] Cells Puncture Site Right brachial Patient Temperature 98.6 O2 Saturation 99 ABG pH 7.31 L ABG pCO2 23 L* ABG pO2 255 H ABG HCO3 11 L* ABG O2 Content 6.4 L ABG Base Excess -13.8 L ABG Methemoglobin 0.4 VBG pH VBG pCO2 VBG pO2 VBG HCO3 VBG O2 Saturation VBG O2 Content VBG Base Excess VBG Carboxyhemoglobin VBG Methemoglobin Hemoglobin 4.1 L* Carboxyhemoglobin 0.9 O2 Delivery Device Nrb Vent Setting Inspired O2 100 Critical Value Yes Sodium Potassium Chloride Carbon Dioxide Anion Gap BUN Creatinine Estimated GFR Random Glucose Calcium Prot Corrected Calcium Iron 33 L TIBC 162 L % Saturation 20.3 Ferritin 431 H Total Protein Vitamin B12 250 Folate 3.6 Nasal Screen MRSA (PCR) Blood Type O Positive Antibody Screen Negative MTS Gel Crossmatch See Detail 03/10/18 03/10/18 03/10/18 11:23 11:39 11:55 WBC RBC Hgb Hct MCV MCH MCHC RDW Plt Count MPV Prelim Diff (Auto) Neut % (Auto) Lymph % (Auto) [place] % (Auto) Eos % (Auto) Baso % (Auto) Neut # (Auto) Lymph # (Auto) [place] # (Auto) Eos # (Auto) Baso # (Auto) WBC Differential Seg Neuts % (Manual) Band Neuts % (Manual) Lymphocytes % (Manual) Monocytes % (Manual) Eosinophils % (Manual) Metamyelocytes % (Man) Abs Neuts (Manual) Differential Comment Platelet Estimate Platelet Morphology [place] Cells Puncture Site Art line Central line Patient Temperature 98.6 98.6 O2 Saturation 99 ABG pH 7.36 L ABG pCO2 24 L* ABG pO2 546 H ABG HCO3 13 L* ABG O2 Content 12.5 ABG Base Excess -11.1 L ABG Methemoglobin 0.4 VBG pH 7.33 L VBG pCO2 32 L VBG pO2 26 L* VBG HCO3 16 L VBG O2 Saturation 52 L VBG O2 Content 6.3 L VBG Base Excess -8.5 L VBG Carboxyhemoglobin 1.0 VBG Methemoglobin 0.7 Hemoglobin 8.0 L 8.6 L Carboxyhemoglobin 1.0 O2 Delivery Device Ventilator Ventilator Vent Setting 18/600/peep 5 18/600/peep 5 Inspired O2 100 50 Critical Value Yes Yes Sodium Potassium Chloride Carbon Dioxide Anion Gap BUN Creatinine Estimated GFR Random Glucose Calcium Prot Corrected Calcium Iron TIBC % Saturation Ferritin Total Protein Vitamin B12 Folate Nasal Screen MRSA (PCR) Blood Type Antibody Screen MTS Gel Crossmatch See Detail 03/10/18 03/10/18 03/10/18 13:30 15:32 19:54 WBC RBC Hgb 15.2 D 12.8 L D Hct 45.0 38.7 L MCV MCH MCHC RDW Plt Count MPV Prelim Diff (Auto) Neut % (Auto) Lymph % (Auto) [place] % (Auto) Eos % (Auto) Baso % (Auto) Neut # (Auto) Lymph # (Auto) [place] # (Auto) Eos # (Auto) Baso # (Auto) WBC Differential Seg Neuts % (Manual) Band Neuts % (Manual) Lymphocytes % (Manual) Monocytes % (Manual) Eosinophils % (Manual) Metamyelocytes % (Man) Abs Neuts (Manual) Differential Comment Platelet Estimate Platelet Morphology [place] Cells Puncture Site Patient Temperature O2 Saturation ABG pH ABG pCO2 ABG pO2 ABG HCO3 ABG O2 Content ABG Base Excess ABG Methemoglobin VBG pH VBG pCO2 VBG pO2 VBG HCO3 VBG O2 Saturation VBG O2 Content VBG Base Excess VBG Carboxyhemoglobin VBG Methemoglobin Hemoglobin Carboxyhemoglobin O2 Delivery Device Vent Setting Inspired O2 Critical Value Sodium Potassium Chloride Carbon Dioxide Anion Gap BUN Creatinine Estimated GFR Random Glucose Calcium Prot Corrected Calcium Iron TIBC % Saturation Ferritin Total Protein Vitamin B12 Folate Nasal Screen MRSA (PCR) Not detected Blood Type Antibody Screen MTS Gel Crossmatch 03/11/18 03/11/18 02:40 02:40 WBC 8.1 RBC 3.71 L Hgb 11.6 L Hct 34.6 L MCV 93.1 D MCH 31.3 MCHC 33.6 RDW 17.6 H Plt Count 85 L D MPV 8.7 Prelim Diff (Auto) Slide review pending Neut % (Auto) 72.0 H Lymph % (Auto) 15.6 [place] % (Auto) 10.8 H Eos % (Auto) 1.1 Baso % (Auto) 0.5 Neut # (Auto) 5.9 Lymph # (Auto) 1.3 [place] # (Auto) 0.9 Eos # (Auto) 0.1 Baso # (Auto) 0.0 WBC Differential Manual diff final Seg Neuts % (Manual) 74 H Band Neuts % (Manual) 9 H Lymphocytes % (Manual) 8 L Monocytes % (Manual) 7 Eosinophils % (Manual) 1 Metamyelocytes % (Man) 1 Abs Neuts (Manual) 6.8 Differential Comment . Platelet Estimate Low L Platelet Morphology Normal [place] Cells 1+ H Puncture Site Patient Temperature O2 Saturation ABG pH ABG pCO2 ABG pO2 ABG HCO3 ABG O2 Content ABG Base Excess ABG Methemoglobin VBG pH VBG pCO2 VBG pO2 VBG HCO3 VBG O2 Saturation VBG O2 Content VBG Base Excess VBG Carboxyhemoglobin VBG Methemoglobin Hemoglobin Carboxyhemoglobin O2 Delivery Device Vent Setting Inspired O2 Critical Value Sodium 148 H Potassium 4.0 Chloride 120 H D Carbon Dioxide 17.1 L Anion Gap 11 BUN 35 H Creatinine 0.74 Estimated GFR Greater than 89 Random Glucose 68 L Calcium 7.4 L* Prot Corrected Calcium 9.3 Iron TIBC % Saturation Ferritin Total Protein 3.9 L D Vitamin B12 Folate Nasal Screen MRSA (PCR) Blood Type Antibody Screen MTS Gel Crossmatch Microbiology 03/10/18 15:32 Blood - Peripheral Aerobic Blood Culture - Preliminary No growth in 1 day 03/10/18 15:32 Blood - Peripheral Anaerobic Blood Culture - Preliminary No growth in 1 day 03/10/18 15:26 Blood - Peripheral Aerobic Blood Culture - Preliminary No growth in 1 day 03/10/18 15:26 Blood - Peripheral Anaerobic Blood Culture - Preliminary No growth in 1 day 03/10/18 09:45 Stool Stool Occult Blood (MALIKA) - Final Hemoccult positive - Imaging Impressions Chest X-Ray 03/10/18 11:34 CONCLUSION: Status post placement of right subclavian central venous catheter which is in good position. No evidence of pneumothorax. COPD Left basilar airspace disease; unchanged <Karime Stone - Last Filed: 03/11/18 14:45> Assessment and Plan - Plan Assessment: - GIB- began this morning- maroon and BRB colored stools with large blood clots reported, now continuous. No reports of emesis or coffee ground/BRB secretions prior to intubation. Transfer to [facility] from [place] for emergent EGD and colonoscopy. Pt has been transfused 4 units of PRBCs and at this time is hemodynamically stable. Unable to obtain further history from patient because he is sedated and intubated. Unsure of previous EGD or colonoscopy. It is noted in pts records that he admitted to drinking a bottle of wine daily. - Abdominal pain, LLQ- noted in chart on admission. CT with no etiology for pain or acute findings - SHEEBA on admission, improved with IV fluids Discussed with Dr. Zapata, lugger Discussed with nurse, Kimmie (03/11) Pt remains intubated and sedated. S/P EGD yesterday with findings of large bleeding ulcer S/P treatment. Source of bleeding identified so no colonoscopy was pursued. Pt has not had a BM overnight. No OG/NG. H/H stable since blood transfusion yesterday. Plan: Monitor H/H Monitor stool Protonix gtt Further recommendations to follow Pt has been seen and examined by myself and Dr. Stone and this note is written on his behalf <Colleen Gonzalez - Last Filed: 03/11/18 09:16> - Attending Attestation Stable over night, no signs of active GI bleeding. Will follow up with you. <Karime Stone - Last Filed: 03/11/18 14:45>
[2018-03-11] MEDS: Pantoprazole Inj 80 MG in Sodium Chlor 0.9% Inj 100 ML IV.CONT SCH ×2 (09:32→19:40)
--- NOTE | 2018-03-11 10:51 | P.PNCC ---
Subjective Subjective Remarks/Hospital Course: 73-year-old male who was seen in consultation at the request of the hospitalist to assume medical management the patient while in the intensive care. The patient originally presented the hospital with acute severe lower abdomen pain with associated nausea vomiting patient was unable to keep anything down at that time. Patient is a heavy drinker that drinks at least one bottle of wine daily. The patient was admitted the hospital on the hospitalist care for abdominal pain, acute renal failure. Patient underwent IV hydration with significant improvement of his renal functions. Patient's abdominal pain did resolve during his stay in the hospital. Patient was placed on CIID protocol for his alcohol abuse. Patient tolerated treatment well and was anxiously awaiting discharge, however this morning patient had acute onset of lower GI bleed with high volume liquid stool that was maroon and bright red in coloration with large clots approximately 1.5 L on the first episode. Patient has had at least 3 other episodes of large-volume room/bright red blood stools. During each episode patient has significant drop in blood pressure as well as oxygenation. Originally patient blood pressure was 86/62. During subsequent episodes patient would drop down to a map of 40-50. Patient oxygenation would drop down to 70s. Patient was placed on nonrebreather with improvement of his oxygenation. Blood gases were performed which showed adequate oxygenation, however did indicate a hemoglobin of 6.4. On original presentation to the emergency department patient did have a hemoglobin of 14.6. He continued to trend downward to 9.1. Patient's last episode of lower GI hemorrhage. Patient very lethargic, difficulty in speaking. Patient was emergently intubated for airway support. Case was discussed with dye house wheel operator Dr. Zapata, who did come to [place] and evaluated the patient and placed central line and arterial line. Case was also discussed with membership coordinator Dr. Cuello who indicated patient needs to have stat transferred to the [facility] for emergent endoscopy with interventional radiologist back up. Patient was sent transferred to the [facility] 03/11/18: Patient was scoped yesterday had a large gastric ulcer which was clipped, also had severe esophagitis. No further GI bleed hemoglobin remained stable hemodynamically stable. Patient is heavily sedated but wakes up on sedation hold follows basic commands Objective Vital Signs / I&O: Vital Signs 03/10/18 11:12 03/10/18 12:15 03/10/18 13:15 Temperature Pulse Rate 85 Respiratory Rate 18 19 18 Blood Pressure 90/71 L Pulse Oximetry 100 95 100 03/10/18 15:35 03/10/18 15:53 03/10/18 15:54 Temperature 98.2 F Pulse Rate 84 84 Respiratory Rate 18 18 18 Blood Pressure 138/92 H Pulse Oximetry 100 100 100 03/10/18 15:57 03/10/18 16:00 03/10/18 16:03 Temperature Pulse Rate 84 85 86 Respiratory Rate 18 18 18 Blood Pressure 139/84 138/79 132/84 Pulse Oximetry 100 100 100 03/10/18 16:06 03/10/18 16:07 03/10/18 16:15 Temperature Pulse Rate 87 88 86 Respiratory Rate 18 26 H 18 Blood Pressure 139/80 137/78 168/86 H Pulse Oximetry 100 100 100 03/10/18 20:00 03/10/18 20:22 03/11/18 00:00 Temperature 98.1 F 97.8 F Pulse Rate 84 91 H Respiratory Rate 16 21 16 Blood Pressure 111/62 114/66 Pulse Oximetry 100 100 100 03/11/18 00:04 03/11/18 04:00 03/11/18 04:26 Temperature 98 F Pulse Rate 80 Respiratory Rate 18 18 19 Blood Pressure 121/67 Pulse Oximetry 100 100 100 03/11/18 07:00 03/11/18 07:15 03/11/18 07:30 Temperature 97.7 F Pulse Rate 80 78 78 Respiratory Rate 18 18 18 Blood Pressure 120/62 104/66 110/71 Pulse Oximetry 100 100 100 03/11/18 08:00 03/11/18 08:15 03/11/18 08:30 Temperature 97.7 F Pulse Rate 84 82 83 Respiratory Rate 18 18 18 Blood Pressure 109/64 109/68 103/63 Pulse Oximetry 100 100 100 03/11/18 08:44 03/11/18 08:45 03/11/18 09:00 Temperature Pulse Rate 80 78 Respiratory Rate 18 18 18 Blood Pressure 111/65 117/68 Pulse Oximetry 100 100 100 03/11/18 09:16 03/11/18 10:42 Temperature Pulse Rate 77 Respiratory Rate 18 19 Blood Pressure 108/67 Pulse Oximetry 100 100 Intake & Output 03/10/18 03/11/18 03/11/18 18:59 06:59 18:59 Intake Total 3200 / 3200 1611.2 / 1611.2 100 / 100 Output Total 500 / 500 375 / 375 Balance 2700 / 2700 1236.2 / 1236.2 100 / 100 Weight 51.5 kg Intake: IV 3000 / 3000 1611.2 / 1611.2 100 / 100 Protonix Inj 80 MG In NS Inj 100 / 100 100 / 100 100 ML @ 10 mls/hr IV.CONT Q10H [facility] Rx#:[id number] NS Inj 1,000 ML @ 84 mls/hr IV. 1000 / 1000 CONT .[id number] [facility] Rx#: [id number] MVI-12 Inj 10 ML Thiamine Inj 511.2 / 511.2 100 MG Folvite Inj 1 MG In NS Inj 500 ML @ 125 mls/hr IV.SIG Q24H [facility] Rx#:[id number] NS Inj 1,000 ML @ Wide Open IV. 3000 / 3000 [facility] Rx#:[id number] Oral 0 / 0 Anesthesia Amount 200 / 200 Intake (Blood Product) Amt 0 / 0 Rbc As-3 Leukoreduced Unit 0 / 0 [id number] Output: Urine Amount (Catheter) 500 / 500 375 / 375 Condom 500 / 500 375 / 375 Other: Date of Last Bowel Movement 03/10/18 03/10/18 03/10/18 # Bowel Movements 2 # Incontinent Bowel Movements 2 Result Diagrams: 03/11/18 02:40 03/11/18 02:40 Objective Remarks: GENERAL: Well-developed, cachectic, in no acute distress. Intubated sedated HEENT: Head is normocephalic Pupils equal round reactive to light. Extraocular muscles are intact. ET tube in place NECK: Supple without any masses. Trachea midline no deviation. No JVD, no bruits are appreciated CARDIAC: Regular rhythm, regular rate. S1/S2 are heard. 2/6 ejection murmur, no gallops or rubs. LUNGS: Clear to auscultation bilaterally. No wheeze, rhonchi or rales. No use of accessory muscles on inspiration or expiration. ABDOMEN: Soft, nontender. Nondistended. Bowel sounds heard in all 4 quadrants. No organomegaly or masses. EXTREMITIES: No edema, pulses are equal bilaterally. No cyanosis or clubbing NEUROLOGY: Intubated sedated. On sedation hold briefly follows commands on upper extremity. No focal deficits Assessment and Plan - Problem List (1) Acute lower GI hemorrhage Code(s): K92.2 - Gastrointestinal hemorrhage, unspecified Status: Acute (2) Acute respiratory failure Code(s): J96.00 - Acute respiratory failure, unspecified whether with hypoxia or hypercapnia Status: Acute (3) Hypovolemic shock Code(s): R57.1 - Hypovolemic shock Status: Acute - Assessment and Plan Plan: NEUROLOGY Versed/fentanyl for sedation to maintain redness -2 Hold all sedation now for weaning trials Daily sedation vacation CARDIOLOGY Hypovolemic/Hemorrhagic shock Status post 4 L of IV fluid bolus/4 units PRBC Levophed IV to maintain map greater than 65-currently off Stop IV fluids give IV Lasix 40 mg times 1 PULMONOLOGY Acute respiratory failure PRVC 18/600/1.0/5/100%, wean FiO2 to maintain O2 sats greater than 92% Daily ventilator weaning, SBT GASTROENTEROLOGY Acute lower GI hemorrhage Large gastric ulcer status post clipping keep patient n.p.o. status post EGD 03/10/2018 with clipping of large gastric ulcer NO OG tube due to esophagitis Bakery Products Checker following Continue Protonix drip Off octreotide drip RENAL Acute renal failure, resolved DC IV fluids. IV lasix 40 mg x1 Continue monitor renal function Replete electrolytes as needed INFECTIOUS DISEASE Continue to monitor for infection F/u blood cultures ENDOCRINOLOGY Continue monitor glucose and start Accu-Cheks with sliding scale insulin if needed HEMATOLOGY Acute lower GI hemorrhage Acute blood loss anemia Stat transfused 4 units of packed red blood cells Monitor hemoglobin and hematocrit every 4 hours PROPHYLAXIS Protonix IV gtt f Sequential compression devices for DVT prevention, unable to use chemical prophylaxis secondary to acute lower GI hemorrhage LINES Peripheral IVs Right subclavian central venous line: 03/10/18 Right radial arterial line: 03/10/18 CODE STATUS Full code CRITICAL CARE TIME: Level 3 Code Status: Full
[2018-03-11] MEDS: Multivitamin Inj 10 ML, Thiamine Inj 100 MG, Folic Acid Inj 1 MG in Sodium Chlor 0.9% I... IV.SIG SCH (19:20)
[2018-03-12] MEDS: Chlorhexidine Gluconate 2% 1 Pack (2 Cloths) TOPICAL SCH (05:28)
[2018-03-12] MEDS: Oral Hygiene Kit OROPHARYNG SCH ×3 (05:28→16:31)
[2018-03-12] MEDS: Pantoprazole Inj 80 MG in Sodium Chlor 0.9% Inj 100 ML IV.CONT SCH (05:28)
[2018-03-12] MEDS: Senna/Docusate Sodium 8.6/50 MG Tablet PO SCH ×2 (08:35→20:37)
[2018-03-12] MEDS: Famotidine PF Inj 20 MG/2 ML Vial IV.PUSH SCH (08:35)
[2018-03-12] MEDS: amLODIPine 10 MG Tablet PO SCH (08:35)
--- NOTE | 2018-03-12 10:44 | P.PNCC ---
Subjective Subjective Remarks/Hospital Course: 73-year-old male who was seen in consultation at the request of the hospitalist to assume medical management the patient while in the intensive care. The patient originally presented the hospital with acute severe lower abdomen pain with associated nausea vomiting patient was unable to keep anything down at that time. Patient is a heavy drinker that drinks at least one bottle of wine daily. The patient was admitted the hospital on the hospitalist care for abdominal pain, acute renal failure. Patient underwent IV hydration with significant improvement of his renal functions. Patient's abdominal pain did resolve during his stay in the hospital. Patient was placed on CIOH protocol for his alcohol abuse. Patient tolerated treatment well and was anxiously awaiting discharge, however this morning patient had acute onset of lower GI bleed with high volume liquid stool that was maroon and bright red in coloration with large clots approximately 1.5 L on the first episode. Patient has had at least 3 other episodes of large-volume room/bright red blood stools. During each episode patient has significant drop in blood pressure as well as oxygenation. Originally patient blood pressure was 86/62. During subsequent episodes patient would drop down to a map of 40-50. Patient oxygenation would drop down to 70s. Patient was placed on nonrebreather with improvement of his oxygenation. Blood gases were performed which showed adequate oxygenation, however did indicate a hemoglobin of 6.4. On original presentation to the emergency department patient did have a hemoglobin of 14.6. He continued to trend downward to 9.1. Patient's last episode of lower GI hemorrhage. Patient very lethargic, difficulty in speaking. Patient was emergently intubated for airway support. Case was discussed with electrodynamicist Dr. Zapata, who did come to [place] and evaluated the patient and placed central line and arterial line. Case was also discussed with hand drawer in helper Dr. Cuello who indicated patient needs to have stat transferred to the [facility] for emergent endoscopy with interventional radiologist back up. Patient was sent transferred to the [facility] 03/11/18: Patient was scoped yesterday had a large gastric ulcer which was clipped, also had severe esophagitis. No further GI bleed hemoglobin remained stable hemodynamically stable. Patient is heavily sedated but wakes up on sedation hold follows basic commands 03/12: doing well. extubated. no change in hgb. denies abd pain, denies complaints. no hematemesis. GI advancing diet. ROS otherwise negative. Objective Vital Signs / I&O: Vital Signs 03/11/18 10:42 03/11/18 10:45 03/11/18 11:00 Temperature Pulse Rate 83 85 Respiratory Rate 19 17 18 Blood Pressure 124/73 112/65 Pulse Oximetry 100 96 99 03/11/18 11:15 03/11/18 11:30 03/11/18 11:45 Temperature Pulse Rate 89 90 87 Respiratory Rate 18 18 18 Blood Pressure 106/59 L 114/68 111/71 Pulse Oximetry 88 L 100 100 03/11/18 12:00 03/11/18 12:15 03/11/18 12:30 Temperature 36.8 C Pulse Rate 92 H 95 H 86 Respiratory Rate 18 18 18 Blood Pressure 129/68 131/67 121/65 Pulse Oximetry 98 100 92 L 03/11/18 12:45 03/11/18 13:00 03/11/18 13:15 Temperature Pulse Rate 86 90 92 H Respiratory Rate 19 19 19 Blood Pressure 144/70 H 111/65 123/73 Pulse Oximetry 99 81 L 100 03/11/18 13:31 03/11/18 13:45 03/11/18 14:00 Temperature Pulse Rate 83 89 89 Respiratory Rate 19 21 23 Blood Pressure 116/56 L 112/63 111/71 Pulse Oximetry 97 100 99 03/11/18 14:15 03/11/18 14:30 03/11/18 14:45 Temperature Pulse Rate 92 H 95 H 94 H Respiratory Rate 22 22 20 Blood Pressure 116/66 114/63 106/57 L Pulse Oximetry 100 100 100 03/11/18 15:00 03/11/18 15:15 03/11/18 15:30 Temperature Pulse Rate 91 H 88 92 H Respiratory Rate 19 22 21 Blood Pressure 119/57 L 107/59 L 113/62 Pulse Oximetry 100 98 98 03/11/18 15:45 03/11/18 16:00 03/11/18 16:15 Temperature Pulse Rate 89 90 92 H Respiratory Rate 19 21 20 Blood Pressure 102/55 L 105/61 103/64 Pulse Oximetry 84 L 100 100 03/11/18 16:30 03/11/18 20:00 03/12/18 00:00 Temperature 36.8 C 37.2 C Pulse Rate 80 103 H 78 Respiratory Rate 22 23 23 Blood Pressure 107/59 L 108/63 98/57 L Pulse Oximetry 89 L 100 100 03/12/18 04:00 03/12/18 08:41 Temperature 37.2 C Pulse Rate 77 Respiratory Rate 20 Blood Pressure 101/55 L Pulse Oximetry 100 100 Intake & Output 03/11/18 03/12/18 03/12/18 18:59 06:59 18:59 Intake Total 100 / 100 711.2 / 711.2 Output Total 3050 / 3050 1300 / 1300 Balance -2950 / -2950 -588.8 / -588.8 Weight 45.5 kg Intake: IV 100 / 100 711.2 / 711.2 Protonix Inj 80 MG In NS Inj 100 / 100 200 / 200 100 ML @ 10 mls/hr IV.CONT Q10H [facility] Rx#:[id number] MVI-12 Inj 10 ML Thiamine Inj 511.2 / 511.2 100 MG Folvite Inj 1 MG In NS Inj 500 ML @ 125 mls/hr IV.SIG Q24H [facility] Rx#:[id number] Oral 0 / 0 0 / 0 Output: Stool 0 / 0 Urine/Stool Mix 0 / 0 Urine Amount (Catheter) 3050 / 3050 1300 / 1300 Condom 3050 / 3050 1300 / 1300 Other: Date of Last Bowel Movement 03/10/18 03/10/18 # Bowel Movements 0 # Incontinent Bowel Movements 0 Result Diagrams: 03/11/18 02:40 03/11/18 02:40 Objective Remarks: GENERAL: cachectic male, in no acute distress. HEENT: Head is normocephalic Pupils equal round reactive to light. Extraocular muscles are intact. NECK: Trachea midline no deviation. No JVD CARDIAC: Regular rhythm, regular rate. sinus. LUNGS: equal chest rise. unlabored. ABDOMEN: Soft, nontender. Nondistended. no guarding. EXTREMITIES: No edema, pulses are equal bilaterally. NEUROLOGY: RASS 0. follows commands. no focal deficits. Assessment and Plan - Problem List (1) Acute lower GI hemorrhage Code(s): K92.2 - Gastrointestinal hemorrhage, unspecified Status: Acute (2) Acute respiratory failure Code(s): J96.00 - Acute respiratory failure, unspecified whether with hypoxia or hypercapnia Status: Acute (3) Hypovolemic shock Code(s): R57.1 - Hypovolemic shock Status: Acute - Assessment and Plan Plan: Assessment: 73yM with GI bleeding originally admitted in shock, now resolved. clinically stable and extubated. continue to advance diet. mobilize. PT consult. appreciate GI recommendations. stable to transfer out of ICU. NEUROLOGY d/c CIWA protocol- appears to be out of withdraws avoid long-acting sedatives. CARDIOLOGY Hypovolemic/Hemorrhagic shock- resolved gentle diuresis. PULMONOLOGY Acute respiratory failure- resolved wean o2 by nc for goal spo2 > 90% OOB PT consult. GASTROENTEROLOGY Acute lower GI hemorrhage - resolved Large gastric ulcer status post clipping advance diet. Senior Financial Accountant following change to po ppi per GI. RENAL Acute renal failure, resolved Continue monitor renal function Replete electrolytes as needed no indication for greer. INFECTIOUS DISEASE Continue to monitor for infection F/u blood cultures: ngtd. ENDOCRINOLOGY Continue monitor glucose and start Accu-Cheks with sliding scale insulin if needed HEMATOLOGY Acute lower GI hemorrhage- resolved Acute blood loss anemia s/p transfused 4 units of packed red blood cells Monitor hemoglobin and hematocrit daily now. PROPHYLAXIS po ppi. Sequential compression devices for DVT prevention, unable to use chemical prophylaxis secondary to acute lower GI hemorrhage LINES Peripheral IVs Right subclavian central venous line: 03/10/18: d/c today. Right radial arterial line: 03/10/18: d/c today. CODE STATUS Full code
--- NOTE | 2018-03-12 12:28 | P.PNGI ---
Subjective Interval history: Patient is currently resting in the bed being monitored in the intensive care setting status post EGD. Hemoglobin currently 11.6. Denies any nausea vomiting or abdominal pain will transition IV PPI to Protonix 40 mg twice daily. <Kera Wu - Last Filed: 03/12/18 12:24> Physical Exam Vital signs: Vital Signs 03/11/18 12:30 03/11/18 12:45 03/11/18 13:00 Temperature Pulse Rate 86 86 90 Respiratory Rate 18 19 19 Blood Pressure 121/65 144/70 H 111/65 Pulse Oximetry 92 L 99 81 L 03/11/18 13:15 03/11/18 13:31 03/11/18 13:45 Temperature Pulse Rate 92 H 83 89 Respiratory Rate 19 19 21 Blood Pressure 123/73 116/56 L 112/63 Pulse Oximetry 100 97 100 03/11/18 14:00 03/11/18 14:15 03/11/18 14:30 Temperature Pulse Rate 89 92 H 95 H Respiratory Rate 23 22 22 Blood Pressure 111/71 116/66 114/63 Pulse Oximetry 99 100 100 03/11/18 14:45 03/11/18 15:00 03/11/18 15:15 Temperature Pulse Rate 94 H 91 H 88 Respiratory Rate 20 19 22 Blood Pressure 106/57 L 119/57 L 107/59 L Pulse Oximetry 100 100 98 03/11/18 15:30 03/11/18 15:45 03/11/18 16:00 Temperature Pulse Rate 92 H 89 90 Respiratory Rate 21 19 21 Blood Pressure 113/62 102/55 L 105/61 Pulse Oximetry 98 84 L 100 03/11/18 16:15 03/11/18 16:30 03/11/18 20:00 Temperature 98.3 F Pulse Rate 92 H 80 103 H Respiratory Rate 20 22 23 Blood Pressure 103/64 107/59 L 108/63 Pulse Oximetry 100 89 L 100 03/12/18 00:00 03/12/18 04:00 03/12/18 08:41 Temperature 98.9 F 99.0 F Pulse Rate 78 77 Respiratory Rate 23 20 Blood Pressure 98/57 L 101/55 L Pulse Oximetry 100 100 100 Intake & Output 03/11/18 03/12/18 03/12/18 18:59 06:59 18:59 Intake Total 100 / 100 711.2 / 711.2 Output Total 3050 / 3050 1300 / 1300 Balance -2950 / -2950 -588.8 / -588.8 Weight 45.5 kg Intake: IV 100 / 100 711.2 / 711.2 Protonix Inj 80 MG In NS Inj 100 / 100 200 / 200 100 ML @ 10 mls/hr IV.CONT Q10H [facility] Rx#:[id number] MVI-12 Inj 10 ML Thiamine Inj 511.2 / 511.2 100 MG Folvite Inj 1 MG In NS Inj 500 ML @ 125 mls/hr IV.SIG Q24H [facility] Rx#:[id number] Oral 0 / 0 0 / 0 Output: Stool 0 / 0 Urine/Stool Mix 0 / 0 Urine Amount (Catheter) 3050 / 3050 1300 / 1300 Condom 3050 / 3050 1300 / 1300 Other: Date of Last Bowel Movement 03/10/18 03/10/18 # Bowel Movements 0 # Incontinent Bowel Movements 0 - Constitutional no acute distress, thin, cachectic - Routine HEENT Exam Head: Present: normocephalic ENT: Present: mucous membranes dry - Routine Neck Exam Present: supple - Routine Respiratory Exam Present: accessory muscle use (Even, unlabored) - Routine Cardiovascular Exam Present: S1, S2 - Routine Abdominal Exam Present: soft (Flat,), normoactive bowel sounds (No obvious nausea or abdominal pain to light palpation) - Routine Neurological Exam Present: alert (Responds to verbal stimuli) - Urinary Catheter Management Indwelling Urethral Catheter Cath placed during this visit: yes, but has since been removed by the nurse Reason for continuing: Decision to DC catheter Insertion date: 03/05/18 Insertion time: 16:40 Removal date: 03/06/18 Removal time: 10:25 Condom Cath placed during this visit: no Reason for continuing: Not indwelling catheter <Kera Wu - Last Filed: 03/12/18 12:24> Vital signs: Vital Signs 03/11/18 13:45 03/11/18 14:00 03/11/18 14:15 Temperature Pulse Rate 89 89 92 H Respiratory Rate 21 23 22 Blood Pressure 112/63 111/71 116/66 Pulse Oximetry 100 99 100 03/11/18 14:30 03/11/18 14:45 03/11/18 15:00 Temperature Pulse Rate 95 H 94 H 91 H Respiratory Rate 22 20 19 Blood Pressure 114/63 106/57 L 119/57 L Pulse Oximetry 100 100 100 03/11/18 15:15 03/11/18 15:30 03/11/18 15:45 Temperature Pulse Rate 88 92 H 89 Respiratory Rate 22 21 19 Blood Pressure 107/59 L 113/62 102/55 L Pulse Oximetry 98 98 84 L 03/11/18 16:00 03/11/18 16:15 03/11/18 16:30 Temperature Pulse Rate 90 92 H 80 Respiratory Rate 21 20 22 Blood Pressure 105/61 103/64 107/59 L Pulse Oximetry 100 100 89 L 03/11/18 20:00 03/12/18 00:00 03/12/18 04:00 Temperature 98.3 F 98.9 F 99.0 F Pulse Rate 103 H 78 77 Respiratory Rate 23 23 20 Blood Pressure 108/63 98/57 L 101/55 L Pulse Oximetry 100 100 100 03/12/18 08:41 Temperature Pulse Rate Respiratory Rate Blood Pressure Pulse Oximetry 100 Intake & Output 03/11/18 03/12/18 03/12/18 18:59 06:59 18:59 Intake Total 100 / 100 711.2 / 711.2 Output Total 3050 / 3050 1300 / 1300 Balance -2950 / -2950 -588.8 / -588.8 Weight 45.5 kg Intake: IV 100 / 100 711.2 / 711.2 Protonix Inj 80 MG In NS Inj 100 / 100 200 / 200 100 ML @ 10 mls/hr IV.CONT Q10H [facility] Rx#:[id number] MVI-12 Inj 10 ML Thiamine Inj 511.2 / 511.2 100 MG Folvite Inj 1 MG In NS Inj 500 ML @ 125 mls/hr IV.SIG Q24H [facility] Rx#:[id number] Oral 0 / 0 0 / 0 Output: Stool 0 / 0 Urine/Stool Mix 0 / 0 Urine Amount (Catheter) 3050 / 3050 1300 / 1300 Condom 3050 / 3050 1300 / 1300 Other: Date of Last Bowel Movement 03/10/18 03/10/18 # Bowel Movements 0 # Incontinent Bowel Movements 0 - Urinary Catheter Management Indwelling Urethral Catheter Cath placed during this visit: no Condom Cath placed during this visit: no <Karime Stone - Last Filed: 03/12/18 13:41> Results - Labs CBC & Chem 7: 03/11/18 02:40 03/11/18 02:40 Microbiology 03/10/18 15:32 Blood - Peripheral Aerobic Blood Culture - Preliminary No growth in 2 days 03/10/18 15:32 Blood - Peripheral Anaerobic Blood Culture - Preliminary No growth in 2 days 03/10/18 15:26 Blood - Peripheral Aerobic Blood Culture - Preliminary No growth in 2 days 03/10/18 15:26 Blood - Peripheral Anaerobic Blood Culture - Preliminary No growth in 2 days <Kera Wu - Last Filed: 03/12/18 12:24> - Labs CBC & Chem 7: 03/11/18 02:40 03/11/18 02:40 Microbiology 03/10/18 15:32 Blood - Peripheral Aerobic Blood Culture - Preliminary No growth in 2 days 03/10/18 15:32 Blood - Peripheral Anaerobic Blood Culture - Preliminary No growth in 2 days 03/10/18 15:26 Blood - Peripheral Aerobic Blood Culture - Preliminary No growth in 2 days 03/10/18 15:26 Blood - Peripheral Anaerobic Blood Culture - Preliminary No growth in 2 days <Karime Stone - Last Filed: 03/12/18 13:41> Assessment and Plan - Plan Assessment: - GIB- began this morning- maroon and BRB colored stools with large blood clots reported, now continuous. No reports of emesis or coffee ground/BRB secretions prior to intubation. Transfer to [facility] from [place] for emergent EGD and colonoscopy. Pt has been transfused 4 units of PRBCs and at this time is hemodynamically stable. Unable to obtain further history from patient because he is sedated and intubated. Unsure of previous EGD or colonoscopy. It is noted in pts records that he admitted to drinking a bottle of wine daily. - Abdominal pain, LLQ- noted in chart on admission. CT with no etiology for pain or acute findings - SHEEBA on admission, improved with IV fluids Discussed with Dr. Zapata, superintendent ammunition storage Discussed with nurse, Kimmie (03/11) Pt remains intubated and sedated. S/P EGD yesterday with findings of large bleeding ulcer S/P treatment. Source of bleeding identified so no colonoscopy was pursued. Pt has not had a BM overnight. No OG/NG. H/H stable since blood transfusion yesterday. 03/12/2018 patient is resting in the bed still in the intensive care setting on a Protonix drip. No nausea no vomiting no abdominal pain and patient is hoping to be able to trial clear liquids today. Discussed alcohol abstinence as well as caution with mobility. No obvious GI bleed noted no rectal bleeding. As long as patient can tolerate liquids and food without any distress patient should be stable from a GI standpoint Plan: Diet trial clear liquids and advance as tolerate PPI Protonix 40 mg twice daily Bowel regimen Monitor labs with special attention to hemoglobin current the last check was 11.6 Patient was seen per myself and Dr. Stone, note was written on his behalf <Kera Wu - Last Filed: 03/12/18 12:24> - Attending Attestation Seen and examined, plan as above. Will follow up with you periodically and as needed. <Karime Stone - Last Filed: 03/12/18 13:41>
[2018-03-12] MEDS: Chlorhexidine 0.12% Oral Kit 15 ML UDC OROPHARYNG SCH ×2 (13:47→20:05)
[2018-03-12 15:54] LABS: Hematocrit 28.4 % (39.0-51.0); Hemoglobin 9.3 gm/dL (13.0-17.0)
[2018-03-12] MEDS: Multivitamin Inj 10 ML, Thiamine Inj 100 MG, Folic Acid Inj 1 MG in Sodium Chlor 0.9% I... IV.SIG SCH (19:11)
[2018-03-12 19:25] LABS: Hematocrit 27.4 % (39.0-51.0); Hemoglobin 9.1 gm/dL (13.0-17.0)
[2018-03-12] MEDS: Pantoprazole Inj 80 MG in Sodium Chlor 0.9% Inj 100 ML IV.SIG SCH (20:37)
[2018-03-13 00:02] LABS: Hematocrit 26.5 % (39.0-51.0)
[2018-03-13 05:03] LABS: Hematocrit 27.1 % (39.0-51.0); Hemoglobin 9.3 gm/dL (13.0-17.0)
[2018-03-13 05:05] LABS: Baso % (Auto) 0.5 % (0.0-2.0); Eos # (Auto) 0.1 th/mm3 (0.0-0.4); Eos % (Auto) 0.7 % (0.0-4.0); Hematocrit 26.8 % (39.0-51.0); Hemoglobin 9.1 gm/dL (13.0-17.0); Lymph # (Auto) 1.1 th/mm3 (1.0-4.8); Lymph % (Auto) 12.8 % (9.0-44.0); Mean Corpuscular HGB Conc 34.1 % (32.0-36.0); Mean Corpuscular Hemoglobin 31.9 pg (27.0-34.0); Mean Corpuscular Volume 93.6 fL (80.0-100.0); Mean Platelet Volume 8.1 fL (7.0-11.0); Mono # (Auto) 1.3 th/mm3 (0.0-0.9); Mono % (Auto) 15.5 % (0.0-8.0); Neut # (Auto) 5.9 th/mm3 (1.8-7.7); Neut % (Auto) 70.5 % (16.0-70.0); Platelet Count 155 th/mm3 (150-450); Red Blood Count 2.86 mil/mm3 (4.50-5.90); Red Cell Distribution Width 17.6 % (11.6-17.2); White Blood Count 8.4 th/mm3 (4.0-11.0)
[2018-03-13 05:31] LABS: Albumin 1.8 g/dL (3.4-5.0); Anion Gap 13 meq/L (5-15); Aspartate Aminotransferase 32 U/L (15-37); Blood Urea Nitrogen 19 mg/dL (7-18); Calcium 8.2 mg/dL (8.5-10.1); Carbon Dioxide 19.6 meq/L (21.0-32.0); Chloride 113 meq/L (98-107); Glomerular Filtration Rate Greater Than 89 mL/min (>89); Glucose,Random 65 mg/dL (74-106); Potassium 3.6 meq/L (3.5-5.1); Sodium 146 meq/L (136-145)
[2018-03-13 05:40] LABS: Alanine Aminotransferase 14 U/L (12-78); Alkaline Phosphatase 42 U/L (45-117); Total Protein 4.5 g/dL (6.4-8.2)
[2018-03-13] MEDS: Pantoprazole Inj 80 MG in Sodium Chlor 0.9% Inj 100 ML IV.SIG SCH ×2 (09:03→17:21)
[2018-03-13] MEDS: Senna/Docusate Sodium 8.6/50 MG Tablet PO SCH ×2 (09:03→20:24)
[2018-03-13] MEDS: Chlorhexidine Gluconate 2% 1 Pack (2 Cloths) TOPICAL SCH (09:49)
[2018-03-13] MEDS: amLODIPine 10 MG Tablet PO SCH (09:50)
[2018-03-13] MEDS: Chlorhexidine 0.12% Oral Kit 15 ML UDC OROPHARYNG SCH ×2 (09:50→20:24)
--- NOTE | 2018-03-13 09:50 | P.PNGI ---
Subjective Interval history: Pt is resting in bed, had bloody stools this morning, no nausea or vomiting or abd pain. <Roselyn Watters - Last Filed: 03/13/18 09:44> Physical Exam Vital signs: Vital Signs 03/12/18 10:30 03/12/18 10:45 03/12/18 11:00 Temperature Pulse Rate 90 83 84 Respiratory Rate 22 22 21 Blood Pressure 94/50 L 89/52 L 90/54 L Pulse Oximetry 98 99 100 03/12/18 11:15 03/12/18 11:30 03/12/18 11:45 Temperature Pulse Rate 88 83 92 H Respiratory Rate 22 26 H 23 Blood Pressure 93/55 L 105/55 L 85/51 L Pulse Oximetry 97 97 97 03/12/18 12:00 03/12/18 12:15 03/12/18 12:30 Temperature Pulse Rate 82 81 77 Respiratory Rate 22 21 22 Blood Pressure 86/54 L 91/54 L 93/55 L Pulse Oximetry 98 90 L 98 03/12/18 12:45 03/12/18 13:00 03/12/18 13:15 Temperature Pulse Rate 66 79 81 Respiratory Rate 17 24 22 Blood Pressure 94/55 L 95/53 L 95/54 L Pulse Oximetry 99 99 98 03/12/18 13:30 03/12/18 13:45 03/12/18 14:00 Temperature Pulse Rate 82 79 75 Respiratory Rate 25 H 20 21 Blood Pressure 97/57 L 94/53 L 88/51 L Pulse Oximetry 98 99 98 03/12/18 14:15 03/12/18 14:30 03/12/18 14:45 Temperature Pulse Rate 71 72 75 Respiratory Rate 21 20 26 H Blood Pressure 84/50 L 84/48 L 94/53 L Pulse Oximetry 98 98 95 03/12/18 15:00 03/12/18 15:15 03/12/18 15:17 Temperature Pulse Rate 81 79 79 Respiratory Rate 22 23 24 Blood Pressure 88/53 L 94/53 L 92/50 L Pulse Oximetry 98 98 98 03/12/18 15:30 03/12/18 15:45 03/12/18 16:00 Temperature Pulse Rate 78 76 77 Respiratory Rate 24 25 H 26 H Blood Pressure 84/51 L 98/50 L 87/50 L Pulse Oximetry 99 100 99 03/12/18 16:15 03/12/18 16:30 03/12/18 16:45 Temperature Pulse Rate 79 76 80 Respiratory Rate 26 H 23 25 H Blood Pressure 91/52 L 101/62 107/56 L Pulse Oximetry 97 98 97 03/12/18 17:00 03/12/18 17:15 03/12/18 17:30 Temperature Pulse Rate 83 81 82 Respiratory Rate 28 H 28 H 27 H Blood Pressure 109/55 L 105/58 L 104/56 L Pulse Oximetry 96 96 97 03/12/18 17:45 03/12/18 18:00 03/12/18 18:15 Temperature Pulse Rate 88 89 81 Respiratory Rate 26 H 26 H 22 Blood Pressure 108/57 L 104/59 L 96/55 L Pulse Oximetry 96 99 99 03/12/18 18:30 03/12/18 18:45 03/12/18 19:00 Temperature Pulse Rate 86 84 89 Respiratory Rate 24 25 H 30 H Blood Pressure 95/51 L 93/54 L 104/55 L Pulse Oximetry 95 96 96 03/12/18 19:15 03/12/18 19:30 03/12/18 19:45 Temperature Pulse Rate 79 76 75 Respiratory Rate 28 H 25 H 24 Blood Pressure 97/51 L 101/55 L 91/53 L Pulse Oximetry 99 85 L 99 03/12/18 20:00 03/12/18 20:15 03/12/18 20:30 Temperature 99 F Pulse Rate 79 86 83 Respiratory Rate 24 28 H 26 H Blood Pressure 106/58 L 114/58 L 108/59 L Pulse Oximetry 99 97 96 03/12/18 20:45 03/12/18 21:00 03/12/18 21:15 Temperature Pulse Rate 79 79 76 Respiratory Rate 26 H 26 H 26 H Blood Pressure 108/60 106/58 L 110/56 L Pulse Oximetry 97 97 95 03/12/18 21:30 03/12/18 21:45 03/12/18 22:00 Temperature Pulse Rate 78 75 74 Respiratory Rate 25 H 25 H 25 H Blood Pressure 112/55 L 109/57 L 114/56 L Pulse Oximetry 98 99 98 03/12/18 22:15 03/12/18 22:30 03/12/18 22:45 Temperature Pulse Rate 74 81 68 Respiratory Rate 24 32 H 22 Blood Pressure 111/56 L 118/64 100/54 L Pulse Oximetry 98 94 L 99 03/12/18 23:00 03/12/18 23:15 03/12/18 23:30 Temperature Pulse Rate 64 78 73 Respiratory Rate 24 24 25 H Blood Pressure 104/55 L 108/57 L 113/56 L Pulse Oximetry 98 97 98 03/12/18 23:45 03/13/18 00:00 03/13/18 00:15 Temperature 99 F Pulse Rate 71 74 70 Respiratory Rate 24 25 H 24 Blood Pressure 102/55 L 105/57 L 109/59 L Pulse Oximetry 98 99 98 03/13/18 00:30 03/13/18 00:45 03/13/18 01:00 Temperature Pulse Rate 87 77 74 Respiratory Rate 26 H 23 23 Blood Pressure 103/51 L 99/58 L 102/58 L Pulse Oximetry 94 L 99 98 03/13/18 01:15 03/13/18 01:30 03/13/18 01:45 Temperature Pulse Rate 76 68 75 Respiratory Rate 26 H 23 23 Blood Pressure 105/58 L 98/53 L 99/58 L Pulse Oximetry 95 83 L 92 L 03/13/18 02:00 03/13/18 02:15 03/13/18 02:30 Temperature Pulse Rate 71 72 75 Respiratory Rate 24 24 24 Blood Pressure 98/55 L 108/59 L 105/56 L Pulse Oximetry 94 L 93 L 95 03/13/18 02:45 03/13/18 03:00 03/13/18 03:15 Temperature Pulse Rate 76 75 76 Respiratory Rate 24 24 25 H Blood Pressure 105/58 L 111/59 L 108/55 L Pulse Oximetry 94 L 99 97 03/13/18 03:30 03/13/18 03:45 03/13/18 04:00 Temperature 99 F Pulse Rate 76 75 80 Respiratory Rate 25 H 26 H 26 H Blood Pressure 109/59 L 112/60 113/60 Pulse Oximetry 98 96 94 L 03/13/18 04:14 03/13/18 04:15 Temperature Pulse Rate 79 Respiratory Rate 26 H Blood Pressure 116/60 Pulse Oximetry 98 Intake & Output 03/12/18 03/13/18 03/13/18 18:59 06:59 18:59 Intake Total 680 / 680 100 / 100 Output Total 850 / 850 500 / 500 Balance -170 / -170 -400 / -400 Weight 46 kg Intake: IV 100 / 100 Protonix Inj 80 MG In NS Inj 100 / 100 100 ML @ 10 mls/hr IV.SIG Q10H [facility] Rx#:[id number] Oral 680 / 680 Output: Urine Amount (Catheter) 850 / 850 500 / 500 Condom 850 / 850 500 / 500 Other: Date of Last Bowel Movement 03/12/18 03/12/18 # Bowel Movements 1 - Constitutional no acute distress - Routine HEENT Exam Head: Present: normocephalic - Routine Respiratory Exam Present: CTA bilaterally - Routine Cardiovascular Exam Present: RRR - Routine Abdominal Exam Present: soft, normoactive bowel sounds. Absent: tenderness, distended - Routine Extremities Exam Absent: edema - Routine Skin Exam Present: intact, dry - Routine Neurological Exam Present: alert, oriented X3 - Urinary Catheter Management Indwelling Urethral Catheter Cath placed during this visit: yes, but has since been removed by the nurse Reason for continuing: Decision to DC catheter Insertion date: 03/05/18 Insertion time: 16:40 Removal date: 03/06/18 Removal time: 10:25 Condom Cath placed during this visit: no Reason for continuing: Not indwelling catheter <[email or web address] - Last Filed: 03/13/18 09:44> Vital signs: Vital Signs 03/12/18 18:00 03/12/18 18:15 03/12/18 18:30 Temperature Pulse Rate 89 81 86 Respiratory Rate 26 H 22 24 Blood Pressure 104/59 L 96/55 L 95/51 L Pulse Oximetry 99 99 95 03/12/18 18:45 03/12/18 19:00 03/12/18 19:15 Temperature Pulse Rate 84 89 79 Respiratory Rate 25 H 30 H 28 H Blood Pressure 93/54 L 104/55 L 97/51 L Pulse Oximetry 96 96 99 03/12/18 19:30 03/12/18 19:45 03/12/18 20:00 Temperature 99 F Pulse Rate 76 75 79 Respiratory Rate 25 H 24 24 Blood Pressure 101/55 L 91/53 L 106/58 L Pulse Oximetry 85 L 99 99 03/12/18 20:15 03/12/18 20:30 03/12/18 20:45 Temperature Pulse Rate 86 83 79 Respiratory Rate 28 H 26 H 26 H Blood Pressure 114/58 L 108/59 L 108/60 Pulse Oximetry 97 96 97 03/12/18 21:00 03/12/18 21:15 03/12/18 21:30 Temperature Pulse Rate 79 76 78 Respiratory Rate 26 H 26 H 25 H Blood Pressure 106/58 L 110/56 L 112/55 L Pulse Oximetry 97 95 98 03/12/18 21:45 03/12/18 22:00 03/12/18 22:15 Temperature Pulse Rate 75 74 74 Respiratory Rate 25 H 25 H 24 Blood Pressure 109/57 L 114/56 L 111/56 L Pulse Oximetry 99 98 98 03/12/18 22:30 03/12/18 22:45 03/12/18 23:00 Temperature Pulse Rate 81 68 64 Respiratory Rate 32 H 22 24 Blood Pressure 118/64 100/54 L 104/55 L Pulse Oximetry 94 L 99 98 03/12/18 23:15 03/12/18 23:30 03/12/18 23:45 Temperature Pulse Rate 78 73 71 Respiratory Rate 24 25 H 24 Blood Pressure 108/57 L 113/56 L 102/55 L Pulse Oximetry 97 98 98 03/13/18 00:00 03/13/18 00:15 03/13/18 00:30 Temperature 99 F Pulse Rate 74 70 87 Respiratory Rate 25 H 24 26 H Blood Pressure 105/57 L 109/59 L 103/51 L Pulse Oximetry 99 98 94 L 03/13/18 00:45 03/13/18 01:00 03/13/18 01:15 Temperature Pulse Rate 77 74 76 Respiratory Rate 23 23 26 H Blood Pressure 99/58 L 102/58 L 105/58 L Pulse Oximetry 99 98 95 03/13/18 01:30 03/13/18 01:45 03/13/18 02:00 Temperature Pulse Rate 68 75 71 Respiratory Rate 23 23 24 Blood Pressure 98/53 L 99/58 L 98/55 L Pulse Oximetry 83 L 92 L 94 L 03/13/18 02:15 03/13/18 02:30 03/13/18 02:45 Temperature Pulse Rate 72 75 76 Respiratory Rate 24 24 24 Blood Pressure 108/59 L 105/56 L 105/58 L Pulse Oximetry 93 L 95 94 L 03/13/18 03:00 03/13/18 03:15 03/13/18 03:30 Temperature Pulse Rate 75 76 76 Respiratory Rate 24 25 H 25 H Blood Pressure 111/59 L 108/55 L 109/59 L Pulse Oximetry 99 97 98 03/13/18 03:45 03/13/18 04:00 03/13/18 04:14 Temperature 99 F Pulse Rate 75 80 79 Respiratory Rate 26 H 26 H 26 H Blood Pressure 112/60 113/60 Pulse Oximetry 96 94 L 98 03/13/18 04:15 03/13/18 06:30 03/13/18 06:45 Temperature Pulse Rate 84 87 Respiratory Rate 27 H 28 H Blood Pressure 116/60 113/61 127/61 Pulse Oximetry 94 L 98 03/13/18 07:01 03/13/18 07:15 03/13/18 07:30 Temperature Pulse Rate 80 82 90 Respiratory Rate 28 H 27 H 27 H Blood Pressure 117/62 115/55 L 118/58 L Pulse Oximetry 96 95 88 L 03/13/18 07:45 03/13/18 08:00 03/13/18 08:15 Temperature Pulse Rate 81 82 80 Respiratory Rate 25 H 26 H 25 H Blood Pressure 112/56 L 112/56 L 115/58 L Pulse Oximetry 92 L 97 98 03/13/18 08:30 03/13/18 08:51 03/13/18 09:00 Temperature Pulse Rate 118 H 119 H 104 H Respiratory Rate 40 H 33 H 25 H Blood Pressure 125/63 129/72 114/61 Pulse Oximetry 79 L 100 100 03/13/18 09:15 03/13/18 09:30 03/13/18 09:53 Temperature Pulse Rate 97 H 92 H 85 Respiratory Rate 28 H 24 24 Blood Pressure 109/59 L 108/58 L 106/58 L Pulse Oximetry 98 99 100 03/13/18 10:00 03/13/18 10:15 03/13/18 10:30 Temperature Pulse Rate 85 86 79 Respiratory Rate 23 22 22 Blood Pressure 116/61 115/59 L 108/61 Pulse Oximetry 100 100 100 03/13/18 10:45 03/13/18 11:00 03/13/18 11:15 Temperature Pulse Rate 78 74 75 Respiratory Rate 20 20 20 Blood Pressure 105/56 L 113/62 110/59 L Pulse Oximetry 100 100 100 03/13/18 11:30 03/13/18 11:45 03/13/18 12:00 Temperature Pulse Rate 79 79 80 Respiratory Rate 20 21 23 Blood Pressure 116/57 L 109/56 L 106/58 L Pulse Oximetry 100 100 100 03/13/18 12:15 03/13/18 12:30 03/13/18 13:59 Temperature 98.2 F Pulse Rate 79 73 149 H Respiratory Rate 21 21 Blood Pressure 105/56 L 106/60 105/55 L Pulse Oximetry 100 100 03/13/18 14:00 03/13/18 15:00 03/13/18 16:00 Temperature 98.1 F Pulse Rate 193 H 74 82 Respiratory Rate 21 23 Blood Pressure 104/59 L 115/60 131/59 L Pulse Oximetry 99 100 82 L Intake & Output 03/12/18 03/13/18 03/13/18 18:59 06:59 18:59 Intake Total 680 / 680 100 / 100 300 / 300 Output Total 850 / 850 500 / 500 Balance -170 / -170 -400 / -400 300 / 300 Weight 46 kg Intake: IV 100 / 100 Protonix Inj 80 MG In NS Inj 100 / 100 100 ML @ 10 mls/hr IV.SIG Q10H [facility] Rx#:[id number] Oral 680 / 680 Anesthesia Amount 300 / 300 Output: Urine Amount (Catheter) 850 / 850 500 / 500 Condom 850 / 850 500 / 500 Other: Date of Last Bowel Movement 03/12/18 03/12/18 03/13/18 # Bowel Movements 1 - Urinary Catheter Management Indwelling Urethral Catheter Cath placed during this visit: no Condom Cath placed during this visit: no <Kelly James - Last Filed: 03/13/18 17:50> Results - Labs CBC & Chem 7: 03/13/18 03:40 03/13/18 03:40 Laboratory Results - last 24 hr 03/10/18 03/10/18 03/12/18 08:35 11:23 15:10 WBC RBC Hgb 9.3 L D Hct 28.4 L MCV MCH MCHC RDW Plt Count MPV Neut % (Auto) Lymph % (Auto) [place] % (Auto) Eos % (Auto) Baso % (Auto) Neut # (Auto) Lymph # (Auto) [place] # (Auto) Eos # (Auto) Baso # (Auto) WBC Differential Differential Comment PT INR Sodium Potassium Chloride Carbon Dioxide Anion Gap BUN Creatinine Estimated GFR Random Glucose Calcium Total Bilirubin AST ALT Alkaline Phosphatase Total Protein Albumin MTS Gel Crossmatch See Detail See Detail 03/12/18 03/12/18 03/12/18 15:10 19:13 23:19 WBC RBC Hgb 9.1 L 9.0 L Hct 27.4 L 26.5 L MCV MCH MCHC RDW Plt Count MPV Neut % (Auto) Lymph % (Auto) [place] % (Auto) Eos % (Auto) Baso % (Auto) Neut # (Auto) Lymph # (Auto) [place] # (Auto) Eos # (Auto) Baso # (Auto) WBC Differential Differential Comment PT 10.0 INR 1.0 Sodium Potassium Chloride Carbon Dioxide Anion Gap BUN Creatinine Estimated GFR Random Glucose Calcium Total Bilirubin AST ALT Alkaline Phosphatase Total Protein Albumin MTS Gel Crossmatch 03/13/18 03/13/18 03/13/18 03:40 03:40 03:40 WBC 8.4 RBC 2.86 L Hgb 9.1 L 9.3 L Hct 26.8 L 27.1 L MCV 93.6 MCH 31.9 MCHC 34.1 RDW 17.6 H Plt Count 155 D MPV 8.1 Neut % (Auto) 70.5 H Lymph % (Auto) 12.8 [place] % (Auto) 15.5 H Eos % (Auto) 0.7 Baso % (Auto) 0.5 Neut # (Auto) 5.9 Lymph # (Auto) 1.1 [place] # (Auto) 1.3 H Eos # (Auto) 0.1 Baso # (Auto) 0.0 WBC Differential . Differential Comment Auto diff final PT INR Sodium 146 H Potassium 3.6 Chloride 113 H Carbon Dioxide 19.6 L Anion Gap 13 BUN 19 H Creatinine 0.77 Estimated GFR Greater than 89 Random Glucose 65 L Calcium 8.2 L Total Bilirubin 0.5 AST 32 ALT 14 Alkaline Phosphatase 42 L Total Protein 4.5 L D Albumin 1.8 L MTS Gel Crossmatch Microbiology 03/10/18 15:32 Blood - Peripheral Aerobic Blood Culture - Preliminary No growth in 2 days 03/10/18 15:32 Blood - Peripheral Anaerobic Blood Culture - Preliminary No growth in 2 days 03/10/18 15:26 Blood - Peripheral Aerobic Blood Culture - Preliminary No growth in 2 days 03/10/18 15:26 Blood - Peripheral Anaerobic Blood Culture - Preliminary No growth in 2 days <Amawi,Khawla - Last Filed: 03/13/18 09:44> - Labs CBC & Chem 7: 03/13/18 03:40 03/13/18 03:40 Laboratory Results - last 24 hr 03/10/18 03/10/18 03/12/18 08:35 11:23 19:13 WBC RBC Hgb 9.1 L Hct 27.4 L MCV MCH MCHC RDW Plt Count MPV Neut % (Auto) Lymph % (Auto) [place] % (Auto) Eos % (Auto) Baso % (Auto) Neut # (Auto) Lymph # (Auto) [place] # (Auto) Eos # (Auto) Baso # (Auto) WBC Differential Differential Comment Sodium Potassium Chloride Carbon Dioxide Anion Gap BUN Creatinine Estimated GFR Random Glucose Calcium Total Bilirubin AST ALT Alkaline Phosphatase Total Protein Albumin MTS Gel Crossmatch See Detail See Detail 03/12/18 03/13/18 03/13/18 23:19 03:40 03:40 WBC 8.4 RBC 2.86 L Hgb 9.0 L 9.1 L Hct 26.5 L 26.8 L MCV 93.6 MCH 31.9 MCHC 34.1 RDW 17.6 H Plt Count 155 D MPV 8.1 Neut % (Auto) 70.5 H Lymph % (Auto) 12.8 [place] % (Auto) 15.5 H Eos % (Auto) 0.7 Baso % (Auto) 0.5 Neut # (Auto) 5.9 Lymph # (Auto) 1.1 [place] # (Auto) 1.3 H Eos # (Auto) 0.1 Baso # (Auto) 0.0 WBC Differential . Differential Comment Auto diff final Sodium 146 H Potassium 3.6 Chloride 113 H Carbon Dioxide 19.6 L Anion Gap 13 BUN 19 H Creatinine 0.77 Estimated GFR Greater than 89 Random Glucose 65 L Calcium 8.2 L Total Bilirubin 0.5 AST 32 ALT 14 Alkaline Phosphatase 42 L Total Protein 4.5 L D Albumin 1.8 L MTS Gel Crossmatch 03/13/18 03:40 WBC RBC Hgb 9.3 L Hct 27.1 L MCV MCH MCHC RDW Plt Count MPV Neut % (Auto) Lymph % (Auto) [place] % (Auto) Eos % (Auto) Baso % (Auto) Neut # (Auto) Lymph # (Auto) [place] # (Auto) Eos # (Auto) Baso # (Auto) WBC Differential Differential Comment Sodium Potassium Chloride Carbon Dioxide Anion Gap BUN Creatinine Estimated GFR Random Glucose Calcium Total Bilirubin AST ALT Alkaline Phosphatase Total Protein Albumin MTS Gel Crossmatch Microbiology 03/10/18 15:32 Blood - Peripheral Aerobic Blood Culture - Preliminary No growth in 3 days 03/10/18 15:32 Blood - Peripheral Anaerobic Blood Culture - Preliminary No growth in 3 days 03/10/18 15:26 Blood - Peripheral Aerobic Blood Culture - Preliminary No growth in 3 days 03/10/18 15:26 Blood - Peripheral Anaerobic Blood Culture - Preliminary No growth in 3 days <Kelly James - Last Filed: 03/13/18 17:50> Assessment and Plan - Plan Assessment: - GIB- began this morning- maroon and BRB colored stools with large blood clots reported, now continuous. No reports of emesis or coffee ground/BRB secretions prior to intubation. Transfer to [facility] from [place] for emergent EGD and colonoscopy. Pt has been transfused 4 units of PRBCs and at this time is hemodynamically stable. Unable to obtain further history from patient because he is sedated and intubated. Unsure of previous EGD or colonoscopy. It is noted in pts records that he admitted to drinking a bottle of wine daily. - Abdominal pain, LLQ- noted in chart on admission. CT with no etiology for pain or acute findings - SHEEBA on admission, improved with IV fluids Discussed with Dr. Zapata, sharepoint manager Discussed with nurse, Kimmie (03/11) Pt remains intubated and sedated. S/P EGD yesterday with findings of large bleeding ulcer S/P treatment. Source of bleeding identified so no colonoscopy was pursued. Pt has not had a BM overnight. No OG/NG. H/H stable since blood transfusion yesterday. 03/12/2018 patient is resting in the bed still in the intensive care setting on a Protonix drip. No nausea no vomiting no abdominal pain and patient is hoping to be able to trial clear liquids today. Discussed alcohol abstinence as well as caution with mobility. No obvious GI bleed noted no rectal bleeding. As long as patient can tolerate liquids and food without any distress patient should be stable from a GI standpoint 03/13/18 Pt had bleeding this morning. no nausea or vomiting or abd pain hgb is 9.3 Plan: NPO EGD today consents Cont Protonix 40 mg twice daily Monitor hh Transfuse as needed Supportive care Patient was seen by Dr James and myself and this note is written on her behalf <Roselyn Watters - Last Filed: 03/13/18 09:44> - Attending Attestation seen, examined agree with above egd today <Kelly James - Last Filed: 03/13/18 17:50>
[2018-03-13] MEDS ORDERED: Lidocaine PF 1% Inj 5 ML Syringe OTHER ONE (13:20)
--- NOTE | 2018-03-13 13:45 | GIPROC ---
[facility] [address] [facility]. [facility], [address] EGD PROCEDURE REPORT EXAM DATE: 03/13/2018 PATIENT NAME: Garcia Cabrera MR #: [id number] BIRTHDATE: 1945 ATTENDING: Kelly James MD ORDER #: [id number] SHIFT NURSE MANAGER: Johan Florian and Carlie Tipton STATUS: inpatient INDICATIONS: The patient is a 73 yr old male here for an EGD due to anemia gi bleeding PROCEDURE PERFORMED: EGD w/ biopsy MEDICATIONS: None and Per Anesthesia. TOPICAL ANESTHETIC: none CONSENT: The patient understands the risks and benefits of the procedure and understands that these risks include, but are not limited to: sedation, allergic reaction, infection, perforation and/or bleeding. Alternative means of evaluation and treatment include, among others: physical exam, x-rays, and/or surgical intervention. The patient elects to proceed with this endoscopic procedure. medical equipment was checked for proper function. Hand hygiene and appropriate measures for infection prevention was taken. After the risks, benefits and alternatives of the procedure were thoroughly explained, Informed consent was verified, confirmed and timeout was successfully executed by the treatment team. The patient was anesthetized with topical anesthesia and the Pentax EG-[id number] endoscope was introduced through the mouth and advanced to the second portion of the duodenum. Retroflexed views revealed a hiatal hernia The gastroscope was then slowly withdrawn and removed. Duodenal bulb ulcer -[id number] active bleeding gastritis antrum, small gastric ulcer-biopsy esophagitis, nodular mucosa distal esophagus-biopsy hiatal hernia no active bleeding. ADVERSE EVENTS: There were no complications. IMPRESSIONS: 1. Duodenal bulb ulcer -[id number] active bleeding gastritis antrum, small gastric ulcer-biopsy esophagitis, nodular mucosa distal esophagus-biopsy hiatal hernia no active bleeding 2. Retroflexed views revealed a hiatal hernia RECOMMENDATIONS: 1. Await biopsy results. Biopsy results will not be ready for 7-10 days. If you don't hear from us in two weeks, call our office for biopsy results. 2. Anti-reflux regimen 3. Continue PPI 4. Carafate liquid clear liquid PATIENT CONDITION: stable DISPOSITION: Inpatient REPEAT EXAM: Return 6 weeks EGD Kelly James MD eSigned: Kelly James MD 03/13/2018 1:45 PM cc: PATIENT NAME: Garcia Cabrera MR#: [id number]
--- NOTE | 2018-03-13 14:03 | P.PNCC ---
Subjective Subjective Remarks/Hospital Course: 73-year-old male who was seen in consultation at the request of the hospitalist to assume medical management the patient while in the intensive care. The patient originally presented the hospital with acute severe lower abdomen pain with associated nausea vomiting patient was unable to keep anything down at that time. Patient is a heavy drinker that drinks at least one bottle of wine daily. The patient was admitted the hospital on the hospitalist care for abdominal pain, acute renal failure. Patient underwent IV hydration with significant improvement of his renal functions. Patient's abdominal pain did resolve during his stay in the hospital. Patient was placed on CICO protocol for his alcohol abuse. Patient tolerated treatment well and was anxiously awaiting discharge, however this morning patient had acute onset of lower GI bleed with high volume liquid stool that was maroon and bright red in coloration with large clots approximately 1.5 L on the first episode. Patient has had at least 3 other episodes of large-volume room/bright red blood stools. During each episode patient has significant drop in blood pressure as well as oxygenation. Originally patient blood pressure was 86/62. During subsequent episodes patient would drop down to a map of 40-50. Patient oxygenation would drop down to 70s. Patient was placed on nonrebreather with improvement of his oxygenation. Blood gases were performed which showed adequate oxygenation, however did indicate a hemoglobin of 6.4. On original presentation to the emergency department patient did have a hemoglobin of 14.6. He continued to trend downward to 9.1. Patient's last episode of lower GI hemorrhage. Patient very lethargic, difficulty in speaking. Patient was emergently intubated for airway support. Case was discussed with senior data architect Dr. Zapata, who did come to [place] and evaluated the patient and placed central line and arterial line. Case was also discussed with patrol sergeant Dr. Cuello who indicated patient needs to have stat transferred to the [facility] for emergent endoscopy with interventional radiologist back up. Patient was sent transferred to the [facility] 03/11/18: Patient was scoped yesterday had a large gastric ulcer which was clipped, also had severe esophagitis. No further GI bleed hemoglobin remained stable hemodynamically stable. Patient is heavily sedated but wakes up on sedation hold follows basic commands 03/12: doing well. extubated. no change in hgb. denies abd pain, denies complaints. no hematemesis. GI advancing diet. ROS otherwise negative. 03/13: continues to do well. 1 episode yesterday afternoon of bleeding with hypotension, but no episodes since then. repeat EGD today without bleeding. hgb stable. Objective Vital Signs / I&O: Vital Signs 03/12/18 14:15 03/12/18 14:30 03/12/18 14:45 Temperature Pulse Rate 71 72 75 Respiratory Rate 21 20 26 H Blood Pressure 84/50 L 84/48 L 94/53 L Pulse Oximetry 98 98 95 03/12/18 15:00 03/12/18 15:15 03/12/18 15:17 Temperature Pulse Rate 81 79 79 Respiratory Rate 22 23 24 Blood Pressure 88/53 L 94/53 L 92/50 L Pulse Oximetry 98 98 98 03/12/18 15:30 03/12/18 15:45 03/12/18 16:00 Temperature Pulse Rate 78 76 77 Respiratory Rate 24 25 H 26 H Blood Pressure 84/51 L 98/50 L 87/50 L Pulse Oximetry 99 100 99 03/12/18 16:15 03/12/18 16:30 03/12/18 16:45 Temperature Pulse Rate 79 76 80 Respiratory Rate 26 H 23 25 H Blood Pressure 91/52 L 101/62 107/56 L Pulse Oximetry 97 98 97 03/12/18 17:00 03/12/18 17:15 03/12/18 17:30 Temperature Pulse Rate 83 81 82 Respiratory Rate 28 H 28 H 27 H Blood Pressure 109/55 L 105/58 L 104/56 L Pulse Oximetry 96 96 97 03/12/18 17:45 03/12/18 18:00 03/12/18 18:15 Temperature Pulse Rate 88 89 81 Respiratory Rate 26 H 26 H 22 Blood Pressure 108/57 L 104/59 L 96/55 L Pulse Oximetry 96 99 99 03/12/18 18:30 03/12/18 18:45 03/12/18 19:00 Temperature Pulse Rate 86 84 89 Respiratory Rate 24 25 H 30 H Blood Pressure 95/51 L 93/54 L 104/55 L Pulse Oximetry 95 96 96 03/12/18 19:15 03/12/18 19:30 03/12/18 19:45 Temperature Pulse Rate 79 76 75 Respiratory Rate 28 H 25 H 24 Blood Pressure 97/51 L 101/55 L 91/53 L Pulse Oximetry 99 85 L 99 03/12/18 20:00 03/12/18 20:15 03/12/18 20:30 Temperature 37.2 C Pulse Rate 79 86 83 Respiratory Rate 24 28 H 26 H Blood Pressure 106/58 L 114/58 L 108/59 L Pulse Oximetry 99 97 96 03/12/18 20:45 03/12/18 21:00 03/12/18 21:15 Temperature Pulse Rate 79 79 76 Respiratory Rate 26 H 26 H 26 H Blood Pressure 108/60 106/58 L 110/56 L Pulse Oximetry 97 97 95 03/12/18 21:30 03/12/18 21:45 03/12/18 22:00 Temperature Pulse Rate 78 75 74 Respiratory Rate 25 H 25 H 25 H Blood Pressure 112/55 L 109/57 L 114/56 L Pulse Oximetry 98 99 98 03/12/18 22:15 03/12/18 22:30 03/12/18 22:45 Temperature Pulse Rate 74 81 68 Respiratory Rate 24 32 H 22 Blood Pressure 111/56 L 118/64 100/54 L Pulse Oximetry 98 94 L 99 03/12/18 23:00 03/12/18 23:15 03/12/18 23:30 Temperature Pulse Rate 64 78 73 Respiratory Rate 24 24 25 H Blood Pressure 104/55 L 108/57 L 113/56 L Pulse Oximetry 98 97 98 03/12/18 23:45 03/13/18 00:00 03/13/18 00:15 Temperature 37.2 C Pulse Rate 71 74 70 Respiratory Rate 24 25 H 24 Blood Pressure 102/55 L 105/57 L 109/59 L Pulse Oximetry 98 99 98 03/13/18 00:30 03/13/18 00:45 03/13/18 01:00 Temperature Pulse Rate 87 77 74 Respiratory Rate 26 H 23 23 Blood Pressure 103/51 L 99/58 L 102/58 L Pulse Oximetry 94 L 99 98 03/13/18 01:15 03/13/18 01:30 03/13/18 01:45 Temperature Pulse Rate 76 68 75 Respiratory Rate 26 H 23 23 Blood Pressure 105/58 L 98/53 L 99/58 L Pulse Oximetry 95 83 L 92 L 03/13/18 02:00 03/13/18 02:15 03/13/18 02:30 Temperature Pulse Rate 71 72 75 Respiratory Rate 24 24 24 Blood Pressure 98/55 L 108/59 L 105/56 L Pulse Oximetry 94 L 93 L 95 03/13/18 02:45 03/13/18 03:00 03/13/18 03:15 Temperature Pulse Rate 76 75 76 Respiratory Rate 24 24 25 H Blood Pressure 105/58 L 111/59 L 108/55 L Pulse Oximetry 94 L 99 97 03/13/18 03:30 03/13/18 03:45 03/13/18 04:00 Temperature 37.2 C Pulse Rate 76 75 80 Respiratory Rate 25 H 26 H 26 H Blood Pressure 109/59 L 112/60 113/60 Pulse Oximetry 98 96 94 L 03/13/18 04:14 03/13/18 04:15 03/13/18 06:30 Temperature Pulse Rate 79 84 Respiratory Rate 26 H 27 H Blood Pressure 116/60 113/61 Pulse Oximetry 98 94 L 03/13/18 06:45 03/13/18 07:01 03/13/18 07:15 Temperature Pulse Rate 87 80 82 Respiratory Rate 28 H 28 H 27 H Blood Pressure 127/61 117/62 115/55 L Pulse Oximetry 98 96 95 03/13/18 07:30 03/13/18 07:45 03/13/18 08:00 Temperature Pulse Rate 90 81 82 Respiratory Rate 27 H 25 H 26 H Blood Pressure 118/58 L 112/56 L 112/56 L Pulse Oximetry 88 L 92 L 97 03/13/18 08:15 03/13/18 08:30 03/13/18 08:51 Temperature Pulse Rate 80 118 H 119 H Respiratory Rate 25 H 40 H 33 H Blood Pressure 115/58 L 125/63 129/72 Pulse Oximetry 98 79 L 100 03/13/18 09:00 03/13/18 09:15 03/13/18 09:30 Temperature Pulse Rate 104 H 97 H 92 H Respiratory Rate 25 H 28 H 24 Blood Pressure 114/61 109/59 L 108/58 L Pulse Oximetry 100 98 99 03/13/18 09:53 03/13/18 10:00 03/13/18 10:15 Temperature Pulse Rate 85 85 86 Respiratory Rate 24 23 22 Blood Pressure 106/58 L 116/61 115/59 L Pulse Oximetry 100 100 100 03/13/18 10:30 03/13/18 10:45 03/13/18 11:00 Temperature Pulse Rate 79 78 74 Respiratory Rate 22 20 20 Blood Pressure 108/61 105/56 L 113/62 Pulse Oximetry 100 100 100 03/13/18 11:15 03/13/18 11:30 03/13/18 11:45 Temperature Pulse Rate 75 79 79 Respiratory Rate 20 20 21 Blood Pressure 110/59 L 116/57 L 109/56 L Pulse Oximetry 100 100 100 03/13/18 12:00 03/13/18 12:15 03/13/18 12:30 Temperature Pulse Rate 80 79 73 Respiratory Rate 23 21 21 Blood Pressure 106/58 L 105/56 L 106/60 Pulse Oximetry 100 100 100 Intake & Output 03/12/18 03/13/18 03/13/18 18:59 06:59 18:59 Intake Total 680 / 680 100 / 100 Output Total 850 / 850 500 / 500 Balance -170 / -170 -400 / -400 Weight 46 kg Intake: IV 100 / 100 Protonix Inj 80 MG In NS Inj 100 / 100 100 ML @ 10 mls/hr IV.SIG Q10H PHILLIP Rx#:[id number] Oral 680 / 680 Output: Urine Amount (Catheter) 850 / 850 500 / 500 Condom 850 / 850 500 / 500 Other: Date of Last Bowel Movement 03/12/18 03/12/18 03/13/18 # Bowel Movements 1 Result Diagrams: 03/13/18 03:40 03/13/18 03:40 Objective Remarks: GENERAL: cachectic male, in no acute distress. HEENT: Head is normocephalic Pupils equal round reactive to light. Extraocular muscles are intact. NECK: Trachea midline no deviation. No JVD CARDIAC: Regular rhythm, regular rate. sinus. LUNGS: equal chest rise. unlabored. ABDOMEN: Soft, nontender. Nondistended. no guarding. EXTREMITIES: No edema, pulses are equal bilaterally. NEUROLOGY: RASS 0. follows commands. no focal deficits. Assessment and Plan - Problem List (1) Acute lower GI hemorrhage Code(s): K92.2 - Gastrointestinal hemorrhage, unspecified Status: Acute (2) Acute respiratory failure Code(s): J96.00 - Acute respiratory failure, unspecified whether with hypoxia or hypercapnia Status: Acute (3) Hypovolemic shock Code(s): R57.1 - Hypovolemic shock Status: Acute - Assessment and Plan Plan: Assessment: 73yM with GI bleeding originally admitted in shock, now resolved. clinically stable and extubated. continue to advance diet. mobilize. PT consult. appreciate GI recommendations. NEUROLOGY d/c CIWA protocol- appears to be out of withdraws avoid long-acting sedatives. CARDIOLOGY Hypovolemic/Hemorrhagic shock- resolved gentle diuresis. PULMONOLOGY Acute respiratory failure- resolved wean o2 by nc for goal spo2 > 90% OOB PT consult. GASTROENTEROLOGY Acute lower GI hemorrhage - resolved Large gastric ulcer status post clipping advance diet. Table Assembler following continue iv ppi. RENAL Acute renal failure, resolved Continue monitor renal function Replete electrolytes as needed no indication for greer. INFECTIOUS DISEASE Continue to monitor for infection F/u blood cultures: ngtd. ENDOCRINOLOGY Continue monitor glucose and start Accu-Cheks with sliding scale insulin if needed HEMATOLOGY Acute lower GI hemorrhage- resolved Acute blood loss anemia s/p transfused 4 units of packed red blood cells Monitor hemoglobin and hematocrit daily now. PROPHYLAXIS iv ppi. Sequential compression devices for DVT prevention, unable to use chemical prophylaxis secondary to acute lower GI hemorrhage LINES Peripheral IVs CODE STATUS Full code
[2018-03-13] MEDS ORDERED: fentaNYL Citrate Inj 100 MCG/2 ML Ampul ONE (14:06)
[2018-03-13] MEDS: Oral Hygiene Kit OROPHARYNG SCH ×2 (15:41→17:20)
[2018-03-14] MEDS: Pantoprazole Inj 80 MG in Sodium Chlor 0.9% Inj 100 ML IV.SIG SCH (02:55)
[2018-03-14] MEDS: Oral Hygiene Kit OROPHARYNG SCH ×3 (03:32→20:32)
[2018-03-14] MEDS: Chlorhexidine Gluconate 2% 1 Pack (2 Cloths) TOPICAL SCH (03:32)
[2018-03-14 05:56] LABS: Hematocrit 26.4 % (39.0-51.0); Hemoglobin 8.9 gm/dL (13.0-17.0); Mean Corpuscular HGB Conc 33.8 % (32.0-36.0); Mean Corpuscular Hemoglobin 32.1 pg (27.0-34.0); Mean Platelet Volume 7.8 fL (7.0-11.0); Platelet Count 207 th/mm3 (150-450); Red Blood Count 2.78 mil/mm3 (4.50-5.90); Red Cell Distribution Width 17.8 % (11.6-17.2); White Blood Count 8.4 th/mm3 (4.0-11.0)
[2018-03-14 06:23] LABS: Anion Gap 15 meq/L (5-15); Blood Urea Nitrogen 14 mg/dL (7-18); Calcium 8.1 mg/dL (8.5-10.1); Carbon Dioxide 18.5 meq/L (21.0-32.0); Chloride 114 meq/L (98-107); Glomerular Filtration Rate Greater Than 89 mL/min (>89); Glucose,Random 73 mg/dL (74-106); Potassium 3.1 meq/L (3.5-5.1); Sodium 147 meq/L (136-145)
[2018-03-14] MEDS: amLODIPine 10 MG Tablet PO SCH (09:21)
[2018-03-14] MEDS: Senna/Docusate Sodium 8.6/50 MG Tablet PO SCH (09:21)
[2018-03-14] MEDS: Chlorhexidine 0.12% Oral Kit 15 ML UDC OROPHARYNG SCH ×2 (09:23→20:32)
--- NOTE | 2018-03-14 13:31 | P.PNGI ---
Subjective Interval history: Pt is resting in bed, no bleeding reported today, doing good <Roselyn Watters - Last Filed: 03/14/18 13:25> Physical Exam Vital signs: Vital Signs 03/13/18 13:59 03/13/18 14:00 03/13/18 15:00 Temperature 98.2 F Pulse Rate 149 H 193 H 74 Respiratory Rate 21 Blood Pressure 105/55 L 104/59 L 115/60 Pulse Oximetry 99 100 03/13/18 16:00 03/13/18 17:08 03/13/18 18:00 Temperature 98.1 F Pulse Rate 82 93 H 85 Respiratory Rate 23 30 H 25 H Blood Pressure 131/59 L 135/64 Pulse Oximetry 82 L 97 03/13/18 19:32 03/13/18 20:00 03/13/18 21:01 Temperature 98.7 F Pulse Rate 105 H 87 105 H Respiratory Rate 28 H 26 H 29 H Blood Pressure 110/77 115/56 L 116/58 L Pulse Oximetry 98 97 94 L 03/13/18 22:00 03/13/18 23:10 03/14/18 00:00 Temperature 97.7 F Pulse Rate 74 85 106 H Respiratory Rate 24 28 H 32 H Blood Pressure 119/57 L 120/63 131/67 Pulse Oximetry 98 96 91 L 03/14/18 00:08 03/14/18 01:00 03/14/18 02:00 Temperature Pulse Rate 91 H 88 83 Respiratory Rate 30 H 27 H 26 H Blood Pressure 131/67 137/70 142/80 H Pulse Oximetry 95 94 L 95 03/14/18 03:00 03/14/18 04:00 03/14/18 05:00 Temperature 98.2 F Pulse Rate 79 95 H 88 Respiratory Rate 23 26 H 28 H Blood Pressure 135/67 137/63 123/61 Pulse Oximetry 95 94 L 96 03/14/18 06:00 03/14/18 07:00 03/14/18 08:00 Temperature 98.5 F Pulse Rate 71 81 68 Respiratory Rate 21 22 18 Blood Pressure 122/70 126/73 116/81 Pulse Oximetry 97 100 96 03/14/18 09:00 03/14/18 10:00 03/14/18 11:00 Temperature Pulse Rate 82 97 H 75 Respiratory Rate 16 22 20 Blood Pressure 161/75 H 122/59 L 106/55 L Pulse Oximetry 96 98 100 03/14/18 12:00 Temperature 99.6 F Pulse Rate 77 Respiratory Rate 18 Blood Pressure 127/61 Pulse Oximetry 96 Intake & Output 03/13/18 03/14/18 03/14/18 18:59 06:59 18:59 Intake Total 1220 / 1220 Output Total 650 / 650 550 / 550 Balance 570 / 570 -550 / -550 Weight 46 kg Intake: Oral 620 / 620 Anesthesia Amount 600 / 600 Output: Urine 650 / 650 550 / 550 Stool 0 / 0 Urine/Stool Mix 0 / 0 Urine Amount (Catheter) 0 / 0 Condom 0 / 0 Other: # Voids 0 # Incontinent Voids 1 Date of Last Bowel Movement 03/13/18 03/13/18 03/13/18 # Bowel Movements 1 # Incontinent Bowel Movements 0 - Constitutional no acute distress - Routine HEENT Exam Head: Present: normocephalic - Routine Neck Exam Present: supple - Routine Respiratory Exam Present: CTA bilaterally - Routine Cardiovascular Exam Present: RRR - Routine Abdominal Exam Present: soft, normoactive bowel sounds. Absent: tenderness - Routine Skin Exam Present: intact, dry - Routine Neurological Exam Present: alert, oriented X3 - Urinary Catheter Management Indwelling Urethral Catheter Cath placed during this visit: yes, but has since been removed by the nurse Reason for continuing: Decision to DC catheter Insertion date: 03/05/18 Insertion time: 16:40 Removal date: 03/06/18 Removal time: 10:25 Condom Cath placed during this visit: no Reason for continuing: Not indwelling catheter <Roselyn Watters - Last Filed: 03/14/18 13:25> Vital signs: Vital Signs 03/13/18 18:00 03/13/18 19:32 03/13/18 20:00 Temperature 98.7 F Pulse Rate 85 105 H 87 Respiratory Rate 25 H 28 H 26 H Blood Pressure 110/77 115/56 L Pulse Oximetry 97 98 97 03/13/18 21:01 03/13/18 22:00 03/13/18 23:10 Temperature Pulse Rate 105 H 74 85 Respiratory Rate 29 H 24 28 H Blood Pressure 116/58 L 119/57 L 120/63 Pulse Oximetry 94 L 98 96 03/14/18 00:00 03/14/18 00:08 03/14/18 01:00 Temperature 97.7 F Pulse Rate 106 H 91 H 88 Respiratory Rate 32 H 30 H 27 H Blood Pressure 131/67 131/67 137/70 Pulse Oximetry 91 L 95 94 L 03/14/18 02:00 03/14/18 03:00 03/14/18 04:00 Temperature 98.2 F Pulse Rate 83 79 95 H Respiratory Rate 26 H 23 26 H Blood Pressure 142/80 H 135/67 137/63 Pulse Oximetry 95 95 94 L 03/14/18 05:00 03/14/18 06:00 03/14/18 07:00 Temperature Pulse Rate 88 71 81 Respiratory Rate 28 H 21 22 Blood Pressure 123/61 122/70 126/73 Pulse Oximetry 96 97 100 03/14/18 08:00 03/14/18 09:00 03/14/18 10:00 Temperature 98.5 F Pulse Rate 68 82 97 H Respiratory Rate 18 16 22 Blood Pressure 116/81 161/75 H 122/59 L Pulse Oximetry 96 96 98 03/14/18 11:00 03/14/18 12:00 03/14/18 13:00 Temperature 99.6 F Pulse Rate 75 77 73 Respiratory Rate 20 18 17 Blood Pressure 106/55 L 127/61 116/62 Pulse Oximetry 100 96 98 03/14/18 14:00 03/14/18 14:43 03/14/18 15:00 Temperature Pulse Rate 87 91 H 81 Respiratory Rate 24 29 H 23 Blood Pressure 110/57 L 110/64 101/58 L Pulse Oximetry 96 98 90 L 03/14/18 16:00 03/14/18 17:00 Temperature Pulse Rate 60 79 Respiratory Rate 20 21 Blood Pressure 124/59 L 120/70 Pulse Oximetry 97 99 Intake & Output 03/13/18 03/14/18 03/14/18 18:59 06:59 18:59 Intake Total 1220 / 1220 Output Total 650 / 650 550 / 550 Balance 570 / 570 -550 / -550 Weight 46 kg Intake: Oral 620 / 620 Anesthesia Amount 600 / 600 Output: Urine 650 / 650 550 / 550 Stool 0 / 0 Urine/Stool Mix 0 / 0 Urine Amount (Catheter) 0 / 0 Condom 0 / 0 Other: # Voids 0 # Incontinent Voids 1 Date of Last Bowel Movement 09/15/18 09/15/18 09/16/18 # Bowel Movements 1 # Incontinent Bowel Movements 0 - Urinary Catheter Management Indwelling Urethral Catheter Cath placed during this visit: no Condom Cath placed during this visit: no <Kelly James - Last Filed: 03/14/18 17:32> Results - Labs CBC & Chem 7: 03/14/18 05:04 03/14/18 05:01 Laboratory Results - last 24 hr 03/14/18 03/14/18 05:01 05:04 WBC 8.4 RBC 2.78 L Hgb 8.9 L Hct 26.4 L MCV 95.0 MCH 32.1 MCHC 33.8 RDW 17.8 H Plt Count 207 D MPV 7.8 Sodium 147 H Potassium 3.1 L Chloride 114 H Carbon Dioxide 18.5 L Anion Gap 15 BUN 14 Creatinine 0.73 Estimated GFR Greater than 89 Random Glucose 73 L Calcium 8.1 L Microbiology 03/10/18 15:32 Blood - Peripheral Aerobic Blood Culture - Preliminary No growth in 4 days 03/10/18 15:32 Blood - Peripheral Anaerobic Blood Culture - Preliminary No growth in 4 days 03/10/18 15:26 Blood - Peripheral Aerobic Blood Culture - Preliminary No growth in 4 days 03/10/18 15:26 Blood - Peripheral Anaerobic Blood Culture - Preliminary No growth in 4 days <LissethelizabethRoselyn - Last Filed: 03/14/18 13:25> - Labs CBC & Chem 7: 03/14/18 05:04 03/14/18 05:01 Laboratory Results - last 24 hr 03/14/18 03/14/18 05:01 05:04 WBC 8.4 RBC 2.78 L Hgb 8.9 L Hct 26.4 L MCV 95.0 MCH 32.1 MCHC 33.8 RDW 17.8 H Plt Count 207 D MPV 7.8 Sodium 147 H Potassium 3.1 L Chloride 114 H Carbon Dioxide 18.5 L Anion Gap 15 BUN 14 Creatinine 0.73 Estimated GFR Greater than 89 Random Glucose 73 L Calcium 8.1 L Microbiology 03/10/18 15:32 Blood - Peripheral Aerobic Blood Culture - Preliminary No growth in 4 days 03/10/18 15:32 Blood - Peripheral Anaerobic Blood Culture - Preliminary No growth in 4 days 03/10/18 15:26 Blood - Peripheral Aerobic Blood Culture - Preliminary No growth in 4 days 03/10/18 15:26 Blood - Peripheral Anaerobic Blood Culture - Preliminary No growth in 4 days <Kelly James - Last Filed: 03/14/18 17:32> Assessment and Plan - Plan Assessment: - GIB- began this morning- maroon and BRB colored stools with large blood clots reported, now continuous. No reports of emesis or coffee ground/BRB secretions prior to intubation. Transfer to [facility] from [place] for emergent EGD and colonoscopy. Pt has been transfused 4 units of PRBCs and at this time is hemodynamically stable. Unable to obtain further history from patient because he is sedated and intubated. Unsure of previous EGD or colonoscopy. It is noted in pts records that he admitted to drinking a bottle of wine daily. - Abdominal pain, LLQ- noted in chart on admission. CT with no etiology for pain or acute findings - SHEEBA on admission, improved with IV fluids Discussed with Dr. Zapata, environment friendly landscape designer Discussed with nurse, Kimmie (03/11) Pt remains intubated and sedated. S/P EGD yesterday with findings of large bleeding ulcer S/P treatment. Source of bleeding identified so no colonoscopy was pursued. Pt has not had a BM overnight. No OG/NG. H/H stable since blood transfusion yesterday. 03/12/2018 patient is resting in the bed still in the intensive care setting on a Protonix drip. No nausea no vomiting no abdominal pain and patient is hoping to be able to trial clear liquids today. Discussed alcohol abstinence as well as caution with mobility. No obvious GI bleed noted no rectal bleeding. As long as patient can tolerate liquids and food without any distress patient should be stable from a GI standpoint 03/13/18 Pt had bleeding this morning. no nausea or vomiting or abd pain hgb is 9.3 03/14/18 no bleeding today s/p EGD on 03/13/18---> Duodenal bulb ulcer -[id number] active bleeding gastritis antrum, small gastric ulcer-biopsy, esophagitis, nodular mucosa distal esophagus-biopsy hiatal hernia, no active bleeding. Retroflexed views revealed a hiatal hernia hh 8.03/24.4 Plan: DERECK Await bx EGD in 6 weeks Carafate Cont Protonix 40 mg twice daily Monitor hh Transfuse as needed Supportive care Patient was seen by Dr James and myself and this note is written on her behalf <Roselyn Watters - Last Filed: 03/14/18 13:25> - Attending Attestation seen, examined agree with above fu biopsy colonoscopy same time with repeat egd gi will sign off call us as needed ppi-bid <Kelly James - Last Filed: 03/14/18 17:32>
--- NOTE | 2018-03-14 14:09 | P.PNIM ---
Subjective Interval history: Tolerating soft diet. No abdominal pain. Doing well. Happy to get out of the intensive care unit. Physical Exam Vital signs: Vital Signs 03/13/18 15:00 03/13/18 16:00 03/13/18 17:08 Temperature 98.1 F Pulse Rate 74 82 93 H Respiratory Rate 21 23 30 H Blood Pressure 115/60 131/59 L 135/64 Pulse Oximetry 100 82 L 03/13/18 18:00 03/13/18 19:32 03/13/18 20:00 Temperature 98.7 F Pulse Rate 85 105 H 87 Respiratory Rate 25 H 28 H 26 H Blood Pressure 110/77 115/56 L Pulse Oximetry 97 98 97 03/13/18 21:01 03/13/18 22:00 03/13/18 23:10 Temperature Pulse Rate 105 H 74 85 Respiratory Rate 29 H 24 28 H Blood Pressure 116/58 L 119/57 L 120/63 Pulse Oximetry 94 L 98 96 03/14/18 00:00 03/14/18 00:08 03/14/18 01:00 Temperature 97.7 F Pulse Rate 106 H 91 H 88 Respiratory Rate 32 H 30 H 27 H Blood Pressure 131/67 131/67 137/70 Pulse Oximetry 91 L 95 94 L 03/14/18 02:00 03/14/18 03:00 03/14/18 04:00 Temperature 98.2 F Pulse Rate 83 79 95 H Respiratory Rate 26 H 23 26 H Blood Pressure 142/80 H 135/67 137/63 Pulse Oximetry 95 95 94 L 03/14/18 05:00 03/14/18 06:00 03/14/18 07:00 Temperature Pulse Rate 88 71 81 Respiratory Rate 28 H 21 22 Blood Pressure 123/61 122/70 126/73 Pulse Oximetry 96 97 100 03/14/18 08:00 03/14/18 09:00 03/14/18 10:00 Temperature 98.5 F Pulse Rate 68 82 97 H Respiratory Rate 18 16 22 Blood Pressure 116/81 161/75 H 122/59 L Pulse Oximetry 96 96 98 03/14/18 11:00 03/14/18 12:00 Temperature 99.6 F Pulse Rate 75 77 Respiratory Rate 20 18 Blood Pressure 106/55 L 127/61 Pulse Oximetry 100 96 Intake & Output 03/13/18 03/14/18 03/14/18 18:59 06:59 18:59 Intake Total 1220 / 1220 Output Total 650 / 650 550 / 550 Balance 570 / 570 -550 / -550 Weight 46 kg Intake: Oral 620 / 620 Anesthesia Amount 600 / 600 Output: Urine 650 / 650 550 / 550 Stool 0 / 0 Urine/Stool Mix 0 / 0 Urine Amount (Catheter) 0 / 0 Condom 0 / 0 Other: # Voids 0 # Incontinent Voids 1 Date of Last Bowel Movement 03/13/18 03/13/18 03/13/18 # Bowel Movements 1 # Incontinent Bowel Movements 0 Narrative: GENERAL: This is a well-nourished, well-developed patient, in no apparent distress. CARDIOVASCULAR: Regular rate and rhythm RESPIRATORY: Clear to auscultation. Breath sounds equal bilaterally. No wheezes , rales, or rhonchi. GASTROINTESTINAL: Abdomen soft, non-tender, nondistended. Normal active bowel sounds MUSCULOSKELETAL: Extremities without clubbing, cyanosis, or edema. NEURO: Alert & Oriented x4 to person, place, time, situation. Moves all ext x4 - Urinary Catheter Management Indwelling Urethral Catheter Cath placed during this visit: yes, but has since been removed by the nurse Reason for continuing: Decision to DC catheter Insertion date: 03/05/18 Insertion time: 16:40 Removal date: 03/06/18 Removal time: 10:25 Condom Cath placed during this visit: no Reason for continuing: Not indwelling catheter Results - Labs CBC & Chem 7: 03/14/18 05:04 03/14/18 05:01 Laboratory Results - last 24 hr 03/14/18 03/14/18 05:01 05:04 WBC 8.4 RBC 2.78 L Hgb 8.9 L Hct 26.4 L MCV 95.0 MCH 32.1 MCHC 33.8 RDW 17.8 H Plt Count 207 D MPV 7.8 Sodium 147 H Potassium 3.1 L Chloride 114 H Carbon Dioxide 18.5 L Anion Gap 15 BUN 14 Creatinine 0.73 Estimated GFR Greater than 89 Random Glucose 73 L Calcium 8.1 L Microbiology 03/10/18 15:32 Blood - Peripheral Aerobic Blood Culture - Preliminary No growth in 4 days 03/10/18 15:32 Blood - Peripheral Anaerobic Blood Culture - Preliminary No growth in 4 days 03/10/18 15:26 Blood - Peripheral Aerobic Blood Culture - Preliminary No growth in 4 days 03/10/18 15:26 Blood - Peripheral Anaerobic Blood Culture - Preliminary No growth in 4 days Assessment and Plan - Assessment (1) Acute lower GI hemorrhage Code(s): K92.2 - Gastrointestinal hemorrhage, unspecified Status: Resolved (2) Acute respiratory failure Code(s): J96.00 - Acute respiratory failure, unspecified whether with hypoxia or hypercapnia Status: Resolved (3) Hypovolemic shock Code(s): R57.1 - Hypovolemic shock Status: Resolved - Plan 73yM with GI bleeding originally admitted in shock, now resolved. clinically stable and extubated. continue to advance diet. mobilize. PT consult. appreciate GI recommendations. Acute lower GI hemorrhage - resolved Large gastric ulcer status post clipping advance diet as tolerated. Respite Coordinator following Change IV Protonix drip to Protonix p.o. twice daily Hemoglobin remained stable we will continue to monitor Hypovolemic/Hemorrhagic shock due to GI bleed resolved Acute respiratory failure- resolved wean o2 by nc for goal spo2 > 90% Acute renal failure, resolved Continue monitor renal function Replete electrolytes as needed Acute blood loss anemia due to acute GI hemorrhage and bleeding s/p transfused 4 units of packed red blood cells Monitor hemoglobin and hematocrit daily ; hemoglobin remained stable today PROPHYLAXIS DVT prophylaxis Sequential compression devices for DVT prevention, unable to use chemical prophylaxis secondary to acute lower GI hemorrhage LINES Peripheral IVs CODE STATUS Full code Transfer out of intensive care unit to [facility] floor Discharge Planning: Home when medically stable (2) Acute respiratory failure Qualifiers: Respiratory failure complication: hypoxia Qualified Code(s): J96.01 - Acute respiratory failure with hypoxia
[2018-03-15] MEDS: Oral Hygiene Kit OROPHARYNG SCH ×2 (05:22→12:27)
[2018-03-15] MEDS: Chlorhexidine Gluconate 2% 1 Pack (2 Cloths) TOPICAL SCH (05:22)
[2018-03-15 05:54] LABS: Hematocrit 27.9 % (39.0-51.0); Hemoglobin 9.4 gm/dL (13.0-17.0); Mean Corpuscular HGB Conc 33.8 % (32.0-36.0); Mean Corpuscular Hemoglobin 32.1 pg (27.0-34.0); Mean Corpuscular Volume 94.9 fL (80.0-100.0); Mean Platelet Volume 7.9 fL (7.0-11.0); Platelet Count 255 th/mm3 (150-450); Red Blood Count 2.94 mil/mm3 (4.50-5.90); Red Cell Distribution Width 17.9 % (11.6-17.2); White Blood Count 7.2 th/mm3 (4.0-11.0)
[2018-03-15 06:09] LABS: Anion Gap 9 meq/L (5-15); Blood Urea Nitrogen 10 mg/dL (7-18); Calcium 8.3 mg/dL (8.5-10.1); Carbon Dioxide 22.5 meq/L (21.0-32.0); Chloride 115 meq/L (98-107); Glomerular Filtration Rate Greater Than 89 mL/min (>89); Glucose,Random 81 mg/dL (74-106); Potassium 3.4 meq/L (3.5-5.1); Sodium 146 meq/L (136-145)
[2018-03-15] MEDS: amLODIPine 10 MG Tablet PO SCH (10:58)
[2018-03-15] MEDS: Chlorhexidine 0.12% Oral Kit 15 ML UDC OROPHARYNG SCH (11:03)
--- NOTE | 2018-03-15 12:03 | P.PNIM ---
Subjective Interval history: 73-year-old male who was seen in consultation at the request of the hospitalist to assume medical management the patient while in the intensive care. The patient originally presented the hospital with acute severe lower abdomen pain with associated nausea vomiting patient was unable to keep anything down at that time. Patient is a heavy drinker that drinks at least one bottle of wine daily. The patient was admitted the hospital on the hospitalist care for abdominal pain, acute renal failure. Patient underwent IV hydration with significant improvement of his renal functions. Patient's abdominal pain did resolve during his stay in the hospital. Patient was placed on CIWA protocol for his alcohol abuse. Patient tolerated treatment well and was anxiously awaiting discharge, however this morning patient had acute onset of lower GI bleed with high volume liquid stool that was maroon and bright red in coloration with large clots approximately 1.5 L on the first episode. Patient has had at least 3 other episodes of large-volume room/bright red blood stools. During each episode patient has significant drop in blood pressure as well as oxygenation. Originally patient blood pressure was 86/62. During subsequent episodes patient would drop down to a map of 40-50. Patient oxygenation would drop down to 70s. Patient was placed on nonrebreather with improvement of his oxygenation. Blood gases were performed which showed adequate oxygenation, however did indicate a hemoglobin of 6.4. On original presentation to the emergency department patient did have a hemoglobin of 14.6. He continued to trend downward to 9.1. Patient's last episode of lower GI hemorrhage. Patient very lethargic, difficulty in speaking. Patient was emergently intubated for airway support. Case was discussed with business employment specialist Dr. Zapata, who did come to [place] and evaluated the patient and placed central line and arterial line. Case was also discussed with clinical operations leader Dr. Cuello who indicated patient needs to have stat transferred to the [facility] for emergent endoscopy with interventional radiologist back up. Patient was sent transferred to the [facility] 03/11/18: Patient was scoped yesterday had a large gastric ulcer which was clipped, also had severe esophagitis. No further GI bleed hemoglobin remained stable hemodynamically stable. Patient is heavily sedated but wakes up on sedation hold follows basic commands 03/12: doing well. extubated. no change in hgb. denies abd pain, denies complaints. no hematemesis. GI advancing diet. ROS otherwise negative. 03/13: continues to do well. 1 episode yesterday afternoon of bleeding with hypotension, but no episodes since then. repeat EGD today without bleeding. hgb stable. 03-14 Tolerating soft diet. No abdominal pain. Doing well. Happy to get out of the intensive care unit. 03-15 REPLACE POTASSIUM DC TO SNF TODAY DW RN AND PT AND CM Physical Exam Vital signs: Vital Signs 03/14/18 12:00 03/14/18 13:00 03/14/18 14:00 Temperature 99.6 F Pulse Rate 77 73 87 Respiratory Rate 18 17 24 Blood Pressure 127/61 116/62 110/57 L Pulse Oximetry 96 98 96 03/14/18 14:43 03/14/18 15:00 03/14/18 16:00 Temperature Pulse Rate 91 H 81 60 Respiratory Rate 29 H 23 20 Blood Pressure 110/64 101/58 L 124/59 L Pulse Oximetry 98 90 L 97 03/14/18 17:00 03/14/18 20:00 03/15/18 00:00 Temperature 98.0 F 98.1 F Pulse Rate 79 87 71 Respiratory Rate 21 18 18 Blood Pressure 120/70 122/67 105/60 Pulse Oximetry 99 95 97 03/15/18 02:42 03/15/18 04:00 03/15/18 04:30 Temperature 98.1 F Pulse Rate 70 59 L Respiratory Rate 18 18 Blood Pressure 128/60 Pulse Oximetry 98 03/15/18 07:30 03/15/18 08:00 Temperature 97.7 F Pulse Rate 81 Respiratory Rate 17 17 Blood Pressure 132/67 Pulse Oximetry 96 Intake & Output 03/14/18 03/15/18 03/15/18 18:59 06:59 18:59 Intake Total 540 / 540 Output Total 500 / 500 200 / 200 Balance 40 / 40 -200 / -200 Intake: Oral 540 / 540 Output: Urine 500 / 500 200 / 200 Other: # Incontinent Voids 1 Date of Last Bowel Movement 03/14/18 03/14/18 03/14/18 Narrative: GENERAL: Awake alert and oriented 3 talkative and cooperative SKIN: Warm and dry. HEAD: Atraumatic. Normocephalic. EYES: Pupils equal and round. No scleral icterus. No injection or drainage. EOMI ENT: No nasal bleeding or discharge. Mucous membranes pink and moist. Tongue is midline NECK: Trachea midline. No JVD. Supple CARDIOVASCULAR: Regular rate and rhythm. S1-S2 no S3 or S4 RESPIRATORY: No accessory muscle use. Clear to auscultation. Breath sounds equal bilaterally. GASTROINTESTINAL: Abdomen soft, non-tender, nondistended. Hepatic and splenic margins not palpable. MUSCULOSKELETAL: Extremities without clubbing, cyanosis, or edema. No obvious deformities. NEUROLOGICAL: Awake and alert. No obvious cranial nerve deficits. Motor grossly within normal limits. Five out of 5 muscle strength in the arms and legs. Normal speech. PSYCHIATRIC: Appropriate mood and affect; insight and judgment normal. - Urinary Catheter Management Indwelling Urethral Catheter Cath placed during this visit: yes, but has since been removed by the nurse Reason for continuing: Decision to DC catheter Insertion date: 03/05/18 Insertion time: 16:40 Removal date: 03/06/18 Removal time: 10:25 Condom Cath placed during this visit: no Reason for continuing: Not indwelling catheter Results - Labs CBC & Chem 7: 03/15/18 05:19 03/15/18 05:19 Laboratory Results - last 24 hr 03/15/18 03/15/18 05:19 05:19 WBC 7.2 RBC 2.94 L Hgb 9.4 L Hct 27.9 L MCV 94.9 MCH 32.1 MCHC 33.8 RDW 17.9 H Plt Count 255 MPV 7.9 Sodium 146 H Potassium 3.4 L Chloride 115 H Carbon Dioxide 22.5 Anion Gap 9 BUN 10 Creatinine 0.76 Estimated GFR Greater than 89 Random Glucose 81 Calcium 8.3 L Microbiology 03/10/18 15:32 Blood - Peripheral Aerobic Blood Culture - Final No growth in 5 days 03/10/18 15:32 Blood - Peripheral Anaerobic Blood Culture - Final No growth in 5 days 03/10/18 15:26 Blood - Peripheral Aerobic Blood Culture - Final No growth in 5 days 03/10/18 15:26 Blood - Peripheral Anaerobic Blood Culture - Final No growth in 5 days - Imaging ITS Impressions Abdomen/Pelvis CT 03/05/18 16:17 CONCLUSION: 1. I do not see an etiology of patient's left lower quadrant pain. 2. There are no inflammatory changes 3. Bladder decompressed by Jeong. Chest X-Ray 03/10/18 11:34 CONCLUSION: Status post placement of right subclavian central venous catheter which is in good position. No evidence of pneumothorax. COPD Left basilar airspace disease; unchanged - Procedures EGD with GI bleeding control and PANendoscopy Had multiple large ulcers were found in the middle third of the esophagus and lower third esophagus The mucosa of the stomach appeared normal Large ulcer was found in the duodenal bulb, complete hemostasis was achieved placing 2 hemoclips on the bleeding sites Retroflexed views revealed a hiatal hernia Continue on PPI and avoid NSAIDs IMPRESSIONS: 1. Duodenal bulb ulcer -[id number] active bleeding gastritis antrum, small gastric ulcer-biopsy esophagitis, nodular mucosa distal esophagus-biopsy hiatal hernia no active bleeding 2. Retroflexed views revealed a hiatal hernia RECOMMENDATIONS: 1. Await biopsy results. Biopsy results will not be ready for 7-10 days. If you don't hear from us in two weeks, call our office for biopsy results. 2. Anti-reflux regimen 3. Continue PPI 4. Carafate liquid clear liquid Assessment and Plan - Assessment (1) Acute lower GI hemorrhage Code(s): K92.2 - Gastrointestinal hemorrhage, unspecified Status: Resolved (2) Acute respiratory failure Code(s): J96.00 - Acute respiratory failure, unspecified whether with hypoxia or hypercapnia Status: Resolved (3) Hypovolemic shock Code(s): R57.1 - Hypovolemic shock Status: Resolved - Plan 73yM with GI bleeding originally admitted in shock, now resolved. clinically stable and extubated. continue to advance diet. mobilize. PT consult. appreciate GI recommendations. Acute lower GI hemorrhage - resolved Large gastric ulcer status post clipping advance diet as tolerated. Sonar Subsystem Equipment Operator following Change IV Protonix drip to Protonix p.o. twice daily Hemoglobin remained stable we will continue to monitor Hypovolemic/Hemorrhagic shock due to GI bleed resolved Acute respiratory failure- resolved wean o2 by nc for goal spo2 > 90% Acute renal failure, resolved Continue monitor renal function Replete electrolytes as needed Acute blood loss anemia due to acute GI hemorrhage and bleeding s/p transfused 4 units of packed red blood cells Monitor hemoglobin and hematocrit daily ; hemoglobin remained stable today PROPHYLAXIS DVT prophylaxis Sequential compression devices for DVT prevention, unable to use chemical prophylaxis secondary to acute lower GI hemorrhage LINES Peripheral IVs CODE STATUS Full code Transfer [facility] intensive [facility] today if accepted Code Status: Full code Discussed Condition With: RN and patient and case management Discharge Planning: Hopefully DC to SNF today (2) Acute respiratory failure Qualifiers: Respiratory failure complication: hypoxia Qualified Code(s): J96.01 - Acute respiratory failure with hypoxia
--- NOTE | 2018-03-15 12:15 | P.DS ---
Date of admission: 03/08/18 12:16 Primary care physician: [facility] Attending physician on discharge: Kleber Zambrano Anticipated date of discharge: 03/15/18 Brief History from admission: The patient is a 73 year old male with a past medical history significant for hypertension who is presenting to the hospital with abdominal pain. The patient says that he has had severe pain in his lower left abdomen. He has had associated nausea and vomiting. He states that he has been unable to keep anything down. The last thing he tried to eat was some oatmeal yesterday. He states that the abdominal pain has resolved at this time. The patient denies a history of kidney problems. He currently feels well. He said he would be willing to try to eat something. He says he smokes a pack of cigarettes a day and drinks at least one bottle of wine daily. He says he has a history of prostate problems but does not think it's prostate cancer. Discussed with nursing. Patient update on day of discharge: 73-year-old male who was seen in consultation at the request of the hospitalist to assume medical management the patient while in the intensive care. The patient originally presented the hospital with acute severe lower abdomen pain with associated nausea vomiting patient was unable to keep anything down at that time. Patient is a heavy drinker that drinks at least one bottle of wine daily. The patient was admitted the hospital on the hospitalist care for abdominal pain, acute renal failure. Patient underwent IV hydration with significant improvement of his renal functions. Patient's abdominal pain did resolve during his stay in the hospital. Patient was placed on [facility] protocol for his alcohol abuse. Patient tolerated treatment well and was anxiously awaiting discharge, however this morning patient had acute onset of lower GI bleed with high volume liquid stool that was maroon and bright red in coloration with large clots approximately 1.5 L on the first episode. Patient has had at least 3 other episodes of large-volume room/bright red blood stools. During each episode patient has significant drop in blood pressure as well as oxygenation. Originally patient blood pressure was 86/62. During subsequent episodes patient would drop down to a map of 40-50. Patient oxygenation would drop down to 70s. Patient was placed on nonrebreather with improvement of his oxygenation. Blood gases were performed which showed adequate oxygenation, however did indicate a hemoglobin of 6.4. On original presentation to the emergency department patient did have a hemoglobin of 14.6. He continued to trend downward to 9.1. Patient's last episode of lower GI hemorrhage. Patient very lethargic, difficulty in speaking. Patient was emergently intubated for airway support. Case was discussed with prick stitcher Dr. Zapata, who did come to [place] and evaluated the patient and placed central line and arterial line. Case was also discussed with bellperson Dr. Cuello who indicated patient needs to have stat transferred to the [facility] for emergent endoscopy with interventional radiologist back up. Patient was sent transferred to the [facility] 03/11/18: Patient was scoped yesterday had a large gastric ulcer which was clipped, also had severe esophagitis. No further GI bleed hemoglobin remained stable hemodynamically stable. Patient is heavily sedated but wakes up on sedation hold follows basic commands 03/12: doing well. extubated. no change in hgb. denies abd pain, denies complaints. no hematemesis. GI advancing diet. ROS otherwise negative. 03/13: continues to do well. 1 episode yesterday afternoon of bleeding with hypotension, but no episodes since then. repeat EGD today without bleeding. hgb stable. - Tolerating soft diet. No abdominal pain. Doing well. Happy to get out of the intensive care unit. 03-15 REPLACE POTASSIUM DC TO SNF TODAY DW RN AND PT AND CM DS: Diagnosis - Discharge Diagnosis (1) Acute lower GI hemorrhage Status: Acute (2) Acute respiratory failure Status: Resolved (3) Hypovolemic shock Status: Resolved (4) SHEEBA (acute kidney injury) Status: Resolved (5) Abdominal pain Status: Resolved DS: Medications - Discharge Medications Prescriptions: amlodipine [Norvasc] 10 mg PO DAILY #60 tab oxycodone 5 mg PO Q4H PRN #12 tab PRN Reason: Acute Pain pantoprazole 40 mg PO BID #62 tab sucralfate [Carafate] 1 g PO QID #120 tab DS: Summary Hospital Course: 73-year-old male who was seen in consultation at the request of the hospitalist to assume medical management the patient while in the intensive care. The patient originally presented the hospital with acute severe lower abdomen pain with associated nausea vomiting patient was unable to keep anything down at that time. Patient is a heavy drinker that drinks at least one bottle of wine daily. The patient was admitted the hospital on the hospitalist care for abdominal pain, acute renal failure. Patient underwent IV hydration with significant improvement of his renal functions. Patient's abdominal pain did resolve during his stay in the hospital. Patient was placed on [facility] protocol for his alcohol abuse. Patient tolerated treatment well and was anxiously awaiting discharge, however this morning patient had acute onset of lower GI bleed with high volume liquid stool that was maroon and bright red in coloration with large clots approximately 1.5 L on the first episode. Patient has had at least 3 other episodes of large-volume room/bright red blood stools. During each episode patient has significant drop in blood pressure as well as oxygenation. Originally patient blood pressure was 86/62. During subsequent episodes patient would drop down to a map of 40-50. Patient oxygenation would drop down to 70s. Patient was placed on nonrebreather with improvement of his oxygenation. Blood gases were performed which showed adequate oxygenation, however did indicate a hemoglobin of 6.4. On original presentation to the emergency department patient did have a hemoglobin of 14.6. He continued to trend downward to 9.1. Patient's last episode of lower GI hemorrhage. Patient very lethargic, difficulty in speaking. Patient was emergently intubated for airway support. Case was discussed with prick stitcher Dr. Zapata, who did come to [place] and evaluated the patient and placed central line and arterial line. Case was also discussed with bellperson Dr. Cuello who indicated patient needs to have stat transferred to the [facility] for emergent endoscopy with interventional radiologist back up. Patient was sent transferred to the [facility] 03/11/18: Patient was scoped yesterday had a large gastric ulcer which was clipped, also had severe esophagitis. No further GI bleed hemoglobin remained stable hemodynamically stable. Patient is heavily sedated but wakes up on sedation hold follows basic commands 03/12: doing well. extubated. no change in hgb. denies abd pain, denies complaints. no hematemesis. GI advancing diet. ROS otherwise negative. 03/13: continues to do well. 1 episode yesterday afternoon of bleeding with hypotension, but no episodes since then. repeat EGD today without bleeding. hgb stable. 03-14 Tolerating soft diet. No abdominal pain. Doing well. Happy to get out of the intensive care unit. 03-15 REPLACE POTASSIUM DC TO SNF TODAY DW RN AND PT AND CM [facility] has been consulted no prescriptions on - Time Spent with Patient Total time spent providing and/or coordinating discharge services: Greater than 30 minutes - Quality: VTE Deep Vein Thrombosis/Pulmonary Embolism Present on Admission: No Exam Vital signs: Vital Signs 03/14/18 13:00 03/14/18 14:00 03/14/18 14:43 Temperature Pulse Rate 73 87 91 H Respiratory Rate 17 24 29 H Blood Pressure 116/62 110/57 L 110/64 Pulse Oximetry 98 96 98 03/14/18 15:00 03/14/18 16:00 03/14/18 17:00 Temperature Pulse Rate 81 60 79 Respiratory Rate 23 20 21 Blood Pressure 101/58 L 124/59 L 120/70 Pulse Oximetry 90 L 97 99 03/14/18 20:00 03/15/18 00:00 03/15/18 02:42 Temperature 98.0 F 98.1 F Pulse Rate 87 71 Respiratory Rate 18 18 18 Blood Pressure 122/67 105/60 Pulse Oximetry 95 97 03/15/18 04:00 03/15/18 04:30 03/15/18 07:30 Temperature 98.1 F Pulse Rate 70 59 L Respiratory Rate 18 17 Blood Pressure 128/60 Pulse Oximetry 98 03/15/18 08:00 Temperature 97.7 F Pulse Rate 81 Respiratory Rate 17 Blood Pressure 132/67 Pulse Oximetry 96 Intake & Output 03/14/18 03/15/18 03/15/18 18:59 06:59 18:59 Intake Total 540 / 540 Output Total 500 / 500 200 / 200 Balance 40 / 40 -200 / -200 Intake: Oral 540 / 540 Output: Urine 500 / 500 200 / 200 Other: # Incontinent Voids 1 Date of Last Bowel Movement 03/14/18 03/14/18 03/14/18 Narrative: GENERAL: Awake alert and oriented 3 talkative and cooperative SKIN: Warm and dry. HEAD: Atraumatic. Normocephalic. EYES: Pupils equal and round. No scleral icterus. No injection or drainage. EOMI ENT: No nasal bleeding or discharge. Mucous membranes pink and moist. Tongue is midline NECK: Trachea midline. No JVD. Supple CARDIOVASCULAR: Regular rate and rhythm. S1-S2 no S3 or S4 RESPIRATORY: No accessory muscle use. Clear to auscultation. Breath sounds equal bilaterally. GASTROINTESTINAL: Abdomen soft, non-tender, nondistended. Hepatic and splenic margins not palpable. MUSCULOSKELETAL: Extremities without clubbing, cyanosis, or edema. No obvious deformities. NEUROLOGICAL: Awake and alert. No obvious cranial nerve deficits. Motor grossly within normal limits. Five out of 5 muscle strength in the arms and legs. Normal speech. PSYCHIATRIC: Appropriate mood and affect; insight and judgment normal. Results Procedures completed during hospitalization: EGD with GI bleeding control and PANendoscopy Had multiple large ulcers were found in the middle third of the esophagus and lower third esophagus The mucosa of the stomach appeared normal Large ulcer was found in the duodenal bulb, complete hemostasis was achieved placing 2 hemoclips on the bleeding sites Retroflexed views revealed a hiatal hernia Continue on PPI and avoid NSAIDs IMPRESSIONS: 1. Duodenal bulb ulcer -hfnm9ly active bleeding gastritis antrum, small gastric ulcer-biopsy esophagitis, nodular mucosa distal esophagus-biopsy hiatal hernia no active bleeding 2. Retroflexed views revealed a hiatal hernia RECOMMENDATIONS: 1. Await biopsy results. Biopsy results will not be ready for 7-10 days. If you don't hear from us in two weeks, call our office for biopsy results. 2. Anti-reflux regimen 3. Continue PPI 4. Carafate liquid clear liquid Completed studies during hospitalization: Laboratory Results CBC w Diff Auto diff final 03/10/18 08:45 WBC 7.2 th/mm3 (4.0-11.0) 03/15/18 05:19 RBC 2.94 mil/mm3 (4.50-5.90) L 03/15/18 05:19 Hgb 9.4 gm/dL (13.0-17.0) L 03/15/18 05:19 Hct 27.9 % (39.0-51.0) L 03/15/18 05:19 MCV 94.9 fL (80.0-100.0) 03/15/18 05:19 MCH 32.1 pg (27.0-34.0) 03/15/18 05:19 MCHC 33.8 % (32.0-36.0) 03/15/18 05:19 RDW 17.9 % (11.6-17.2) H 03/15/18 05:19 Plt Count 255 th/mm3 (150-450) 03/15/18 05:19 MPV 7.9 fL (7.0-11.0) 03/15/18 05:19 Prelim Diff (Auto) Slide review pending 03/11/18 02:40 Neut % (Auto) 70.5 % (16.0-70.0) H 03/13/18 03:40 Lymph % (Auto) 12.8 % (9.0-44.0) 03/13/18 03:40 [place] % (Auto) 15.5 % (0.0-8.0) H 03/13/18 03:40 Eos % (Auto) 0.7 % (0.0-4.0) 03/13/18 03:40 Baso % (Auto) 0.5 % (0.0-2.0) 03/13/18 03:40 Neut # (Auto) 5.9 th/mm3 (1.8-7.7) 03/13/18 03:40 Lymph # (Auto) 1.1 th/mm3 (1.0-4.8) 03/13/18 03:40 [place] # (Auto) 1.3 th/mm3 (0.0-0.9) H 03/13/18 03:40 Eos # (Auto) 0.1 th/mm3 (0.0-0.4) 03/13/18 03:40 Baso # (Auto) 0.0 th/mm3 (0.0-0.2) 03/13/18 03:40 WBC Differential . 03/13/18 03:40 Diff Scan Auto diff confirmed 03/06/18 07:50 Seg Neuts % (Manual) 74 % (16-70) H 03/11/18 02:40 Band Neuts % (Manual) 9 % (0-6) H 03/11/18 02:40 Lymphocytes % (Manual) 8 % (9-44) L 03/11/18 02:40 Monocytes % (Manual) 7 % (0-8) 03/11/18 02:40 Eosinophils % (Manual) 1 % (0-4) 03/11/18 02:40 Metamyelocytes % (Man) 1 % (0-1) 03/11/18 02:40 Abs Neuts (Manual) 6.8 th/mm3 (1.8-7.7) 03/11/18 02:40 Differential Comment Auto diff final 03/13/18 03:40 Platelet Estimate Low (Normal) L 03/11/18 02:40 Platelet Morphology Normal (Normal) 03/11/18 02:40 Ramsey Cells 1+ (None) H 03/11/18 02:40 PT 10.0 sec (9.8-11.6) 03/12/18 15:10 INR 1.0 Ratio 03/12/18 15:10 APTT 56.4 sec (24.3-30.1) H 03/10/18 08:45 Puncture Site Central line 03/10/18 11:55 Patient Temperature 98.6 03/10/18 11:55 O2 Saturation 99 % (90-100) 03/10/18 11:39 ABG pH 7.36 (7.380-7.420) L 03/10/18 11:39 ABG pCO2 24 mmHg (38-42) L* 03/10/18 11:39 ABG pO2 546 mmHg (61-120) H 03/10/18 11:39 ABG HCO3 13 mmol/L (22-26) L* 03/10/18 11:39 ABG O2 Content 12.5 Vol % (12.0-20.0) 03/10/18 11:39 ABG Base Excess -11.1 mmol/L (-2-2) L 03/10/18 11:39 ABG Methemoglobin 0.4 % (0-2) 03/10/18 11:39 Dionte Test Present 03/10/18 08:56 VBG pH 7.33 (7.360-7.400) L 03/10/18 11:55 VBG pCO2 32 mmHG (44-48) L 03/10/18 11:55 VBG pO2 26 mmHG (35-40) L* 03/10/18 11:55 VBG HCO3 16 mmol/L (22-26) L 03/10/18 11:55 VBG O2 Saturation 52 % (70-76) L 03/10/18 11:55 VBG O2 Content 6.3 Vol % (9.0-17.0) L 03/10/18 11:55 VBG Base Excess -8.5 mmol/L (-2-2) L 03/10/18 11:55 VBG Carboxyhemoglobin 1.0 % (0-4) 03/10/18 11:55 VBG Methemoglobin 0.7 % (0-2) 03/10/18 11:55 Hemoglobin 8.0 G/DL (12.0-16.0) L 03/10/18 11:39 Hemoglobin 8.6 G/DL (12.0-16.0) L 03/10/18 11:55 Carboxyhemoglobin 1.0 % (0-4) 03/10/18 11:39 O2 Delivery Device Ventilator 03/10/18 11:55 Liter Flow 15.00 L/M 03/10/18 08:56 Vent Setting 18/600/peep 5 03/10/18 11:55 Inspired O2 50 % 03/10/18 11:55 Critical Value Yes 03/10/18 11:55 Sodium 146 meq/L (136-145) H 03/15/18 05:19 Potassium 3.4 meq/L (3.5-5.1) L 03/15/18 05:19 Chloride 115 meq/L (98-107) H 03/15/18 05:19 Carbon Dioxide 22.5 meq/L (21.0-32.0) 03/15/18 05:19 Anion Gap 9 meq/L (5-15) 03/15/18 05:19 BUN 10 mg/dL (7-18) 03/15/18 05:19 Creatinine 0.76 mg/dL (0.60-1.30) 03/15/18 05:19 Estimated GFR Greater than 89 mL/min (>89) 03/15/18 05:19 POC Glucose 137 mg/dl (68-110) H 03/10/18 10:36 Random Glucose 81 mg/dL (74-106) 03/15/18 05:19 Calcium 8.3 mg/dL (8.5-10.1) L 03/15/18 05:19 Prot Corrected Calcium 9.3 mg/dL (8.5-10.1) 03/11/18 02:40 Phosphorus 3.5 mg/dL (2.5-4.9) D 03/10/18 05:12 Magnesium 1.6 mg/dL (1.5-2.5) 03/10/18 05:12 Iron 33 mcg/dL (65-175) L 03/10/18 08:45 TIBC 162 mcg/dL (250-450) L 03/10/18 08:45 % Saturation 20.3 % (20-50) 03/10/18 08:45 Ferritin 431 ng/mL (26-388) H 03/10/18 08:45 Total Bilirubin 0.5 mg/dL (0.2-1.0) 03/13/18 03:40 AST 32 U/L (15-37) 03/13/18 03:40 ALT 14 U/L (12-78) 03/13/18 03:40 Alkaline Phosphatase 42 U/L (45-117) L 03/13/18 03:40 Total Protein 4.5 g/dL (6.4-8.2) L D 03/13/18 03:40 Albumin 1.8 g/dL (3.4-5.0) L 03/13/18 03:40 Lipase 73 U/L (73-393) 03/05/18 15:40 Vitamin B12 250 pg/mL (193-986) 03/10/18 08:45 Folate 3.6 ng/mL (3.1-17.5) 03/10/18 08:45 Ur Collection Type Cath 03/05/18 16:40 Urine Color Yellow (Yellw/Straw) 03/05/18 16:40 Urine Clarity Clear (Clear) 03/05/18 16:40 Urine pH 5.5 (5.0-8.5) 03/05/18 16:40 Ur Specific [place] Greater/equal 1.030 (1.002-1.035) 03/05/18 16:40 Urine Protein 30 mg/dL (Neg-Trace) H 03/05/18 16:40 Urine Glucose (UA) Negative mg/dL (Negative) 03/05/18 16:40 Urine Ketones Trace mg/dL (Negative) H 03/05/18 16:40 Urine Occult Blood Trace (Negative) 03/05/18 16:40 Urine Nitrate Negative (Negative) 03/05/18 16:40 Urine Bilirubin Negative (Negative) 03/05/18 16:40 Urine Ictotest Negative (Negative) 03/05/18 16:40 Urine Urobilinogen 1.0 mg/dL (Less than 2) 03/05/18 16:40 Ur Leukocyte Esterase Negative (Negative) 03/05/18 16:40 Urine WBC 0-5 /hpf (0-5) 03/05/18 16:40 Ur Squamous Epith Cells 0-5 /hpf (0-5) 03/05/18 16:40 Ur Renal Epithelial Cell 1-5 /hpf (None) H 03/05/18 16:40 Urine Bacteria Occasional /hpf (None) H 03/05/18 16:40 Hyaline Casts Greater than 30 /lpf (0-3) H 03/05/18 16:40 Micro UA Comment Cath-culture ind 03/05/18 16:40 Ur Microscopic Review Microscopic reviewed 03/05/18 16:40 Urine Culture Comments Cath-cult indicated 03/05/18 16:40 Ur Random Sodium 42 meq/L 03/05/18 16:40 Nasal Screen MRSA (PCR) Not detected (Negative) 03/10/18 13:30 St C. diff Tox Epid 027 Negative (Negative) 03/07/18 00:45 C. difficile Tox (PCR) Negative (Negative) 03/07/18 00:45 Blood Type O Positive 03/10/18 08:35 Antibody Screen Negative 03/10/18 08:35 MTS Gel Crossmatch See Detail 03/10/18 11:23 Impressions Abdomen/Pelvis CT 03/05/18 16:17 CONCLUSION: 1. I do not see an etiology of patient's left lower quadrant pain. 2. There are no inflammatory changes 3. Bladder decompressed by Jeong. Chest X-Ray 03/10/18 11:34 CONCLUSION: Status post placement of right subclavian central venous catheter which is in good position. No evidence of pneumothorax. COPD Left basilar airspace disease; unchanged Pending studies at discharge: Pending at discharge 03/13/18 07:42 Surgical [PTH] Routine Labs on day of discharge: Labs from last 24 hours 03/15/18 03/15/18 05:19 05:19 WBC 7.2 RBC 2.94 L Hgb 9.4 L Hct 27.9 L MCV 94.9 MCH 32.1 MCHC 33.8 RDW 17.9 H Plt Count 255 MPV 7.9 Sodium 146 H Potassium 3.4 L Chloride 115 H Carbon Dioxide 22.5 Anion Gap 9 BUN 10 Creatinine 0.76 Estimated GFR Greater than 89 Random Glucose 81 Calcium 8.3 L - Impressions ITS Impressions Abdomen/Pelvis CT 03/05/18 16:17 CONCLUSION: 1. I do not see an etiology of patient's left lower quadrant pain. 2. There are no inflammatory changes 3. Bladder decompressed by Jeong. Chest X-Ray 03/10/18 11:34 CONCLUSION: Status post placement of right subclavian central venous catheter which is in good position. No evidence of pneumothorax. COPD Left basilar airspace disease; unchanged Discharge Plan - Discharge Disposition Patient Disposition: 03 Discharge to SNF - Discharge Condition Condition: Stable - Discharge Order Discharge Orders: Discharge Order (Routine); Ordered 03/15/18 Ordered By: Kleber Zambrano - Discharge Details Anticipated Discharge Date: 03/15/18 - Physicians Team Primary Care Provider: [facility] Attending Provider: Kleber Zambrano Other Providers: Jennie Bautista ; Carmelo Cuello MD ; Francisco Zapata MD
[2018-03-15 16:34] VITALS: BP 136/71; PULSE 84; RESP 16; TEMP 97.7; O2SAT 97
== END 2018-03-15 18:30 ==
LOC: EDBD → PHED 15:13 → PHEDA 15:13 → OBSVTOIN 17:41 → INTOOBSV 17:41 → PH3 18:57 → PHICU 03-10 09:03 → HIMC 03-10 13:02 → N05 03-14 17:18
PROVIDERS: ADMIT Hospitalist; ATTEND Hospitalist
PROC: PANENDO (2018-03-10 13:58)